=== PATIENT | female | born 1965 | race Caucasian/White ===

== ENCOUNTER 2020-03-31 15:53 | Outpatient (REF) | payer MEDICAID, SELFPAY ==
--- NOTE | 2020-03-31 | MM_ITS ---
EXAMINATION: MM SCREENING DIGITAL BREAST TOMOSYNTHESIS, BILATERAL CLINICAL INFORMATION: Screening. Asymptomatic. The lifetime risk of breast cancer based on the Tyrer-Cuzick Model is 9.0%. COMPARISON: Mammography: August 30, 2015 and studies dating back to January 24, 2010 TECHNIQUE: Digital mammography is performed in craniocaudal and mediolateral oblique views along with computer-aided detection (CAD). Digital breast tomosynthesis is performed in implant-displaced craniocaudal and implant-displaced mediolateral oblique views along with computer-aided detection (CAD). Synthesized 2D images are generated from the tomosynthesis. Hansel implant displaced views also performed. FINDINGS: The breasts are heterogeneously dense, which may obscure small masses (ACR BI-RADS breast composition Category c). There are no significant masses, abnormal calcifications, or other abnormalities. MM/MM tomosynthesis screen imp BI IMPRESSION: There are no significant changes from prior study. ASSESSMENT: BI-RADS 1: Negative RECOMMENDATION: Routine annual mammography screening. This patient's information was entered into a reminder system with a target due date for their next mammogram.
== END 2020-03-31 15:54 | disposition home or self-care (01) ==
LOC: HO.MAMMO 15:53
PROVIDERS: PCP Internal Medicine; Visit Provider Internal Medicine
DX: Z12.31 Encounter for screening mammogram for malignant neoplasm of breast (principal)
CPT/HCPCS: 77063; 77067

== ENCOUNTER 2020-04-02 17:37 | Emergency (ER) | payer MEDICAID, SELFPAY ==
[2020-04-02 18:54] VITALS: TEMP -12.2; TEMP 10
--- NOTE | 2020-04-02 19:01 | ED.HA ---
HPI - Headache General Chief Complaint: Headache Stated Complaint: MULTIPLE COMPLAINTS Time Seen by Provider: 04/02/20 18:37 Source: patient Mode of arrival: ambulatory Limitations: no limitations History of Present Illness HPI Narrative: 54 yo female previously healthy here with multiple complaints x 1 month. Generalized RAMSEY, left sided neck/shoulder/arm pain. No numbness/tingling/weakness. No nausea/vomiting/vision changes/dizziness MD elicited complaint: headache Onset (ago): month(s) Onset description: gradually Location: frontal Severity: mild Quality & Timing: dull Exacerbating factors: none Relieving factors: nothing Treatments prior to arrival: none Related Data Previous Rx's Medication Instructions Recorded cyclobenzaprine 10 mg PO TID PRN #10 tab 04/02/20 naproxen 375 mg PO BID PRN #10 tab 04/02/20 prednisone 40 mg PO DAILY #10 tab 04/02/20 Allergies Allergy/AdvReac Type Severity Reaction Status Date / Time acetaminophen [Percocet] Allergy Unknown Hives Verified 04/02/20 19:50 amoxicillin [AMOXICILLIN] Allergy Unknown SWELLING, Verified 04/02/20 19:50 hives aspirin [ASA] Allergy Unknown RASH, Verified 04/02/20 19:50 stomach pain codeine [CODEINE] Allergy Unknown HIVES;ITCHY, Verified 04/02/20 19:50 itching oxycodone [OXYCODONE] Allergy Unknown HIVES;ITCHY, Verified 04/02/20 19:50 itching penicillin V Allergy Unknown hives, rash Verified 04/02/20 19:50 Penicillins [PENICILLINS] Allergy Unknown SWELLING Verified 04/02/20 19:50 metronidazole AdvReac Unknown insomnia Verified 12/27/19 00:00 Review of Systems Review of Systems: Yes all other systems are reviewed and are negative Constitutional: Constitutional: Reports no additional constitutional complaints, Denies body ache(s), Denies chills, Denies fever(s), Reports headache(s) and Denies weakness Eyes: Eyes: Reports no additional eye complaints and Denies change in vision ENT: Reports system reviewed and no additional complaints, except as documented, Denies dizziness, Reports headache(s), Denies nasal congestion, Denies nasal discharge and Reports neck pain Cardiovascular: Cardiovascular: Reports no additional cardiovascular complaints, Denies chest pain, Denies leg edema and Denies dyspnea Respiratory: Respiratory: Reports no additional respiratory complaints, Denies cough and Denies dyspnea Gastrointestinal: Gastrointestinal: Reports no additional gastrointestinal complaints, Denies abdominal pain, Denies diarrhea, Denies nausea and Denies vomiting Genitourinary: Genitourinary: Reports no additional female genitourinary complaints and Denies urinary incontinence Musculoskeletal: Musculoskeletal: Reports no additional musculoskeletal complaints, Denies back pain, Denies arthralgias, Denies joint swelling, Reports neck pain, Denies numbness and Denies tingling Integumentary/Breasts: Skin/Breast: Reports system reviewed and no additional complaints, except as docu and Denies rash Neurologic: Denies Abnormal speech present, Denies dizziness, Reports headache(s), Denies numbness, Denies tingling and Denies weakness PMFSH Past Medical History Attestation statement: The following information was validated with the patient. Source: old records reviewed and nursing notes reviewed Social History Social History Smoked in Last 30 Days: No Use of substances other than those prescribed or required for medical reasons: No Advance Directives: No Advance Directives Information Provided: Yes Physical Exam Vital Signs: Vital Signs: Last Vital Signs Temp 98.0 F 04/02/20 19:29 Pulse 64 04/02/20 19:29 Resp 18 04/02/20 19:29 BP 136/92 H 04/02/20 19:29 Pulse Ox 98 04/02/20 19:29 Const: General: cooperative, healthy appearing, comfortable and no acute distress Orientation/consciousness: patient oriented x3 Limitations: no limitations HENMT: Head: Yes normal to inspection Ears: hearing grossly normal bilaterally General nose exam: Normal external nose present Face and sinus: Yes normal facial exam Mouth: Normal oral and palatal mucosa present Throat: Yes posterior oropharynx normal Eyes: General: appearance normal, both eyes and all related structures Pupils: Equal, round and reactive pupils present Neck: Neck: Yes normal visual inspection Chest: Chest palpation & inspection: normal inspection of the chest Resp: Effort & Inspection: normal respiratory effort Auscultation: clear to auscultation bilaterally Cardio: Rate: regular rate Rhythm: regular rhythm Peripheral pulses: Peripheral pulses 2+ throughout GI: Inspection: Yes normal to inspection Palpation (GI): Soft to palpation and nontender Auscultation: normal bowel sounds Back/Spine/Pelvis: Thoracic/Lumbar Spine: thoracic and lumbar spine normal to inspection Skin: General skin exam: no rashes or lesions noted Neuro: General: patient oriented x3, no focal motor deficits and normal sensation to monofilament Cranial nerves: Yes CN's II-XII intact bilaterally, Yes Equal, round and reactive pupils present, Yes Bilaterally intact EOM present, Yes Nystagmus not present, Yes Normal facial strength present and Yes Midline tongue present Cognition (Neuro): normal cognition Speech: No Abnormal speech present Gait exam (Neuro): Normal gait present Motor exam (neuro): 5/5 motor strength present throughout Sensory Exam: Normal double simultaneous stimulation for sensation Deep tendon reflexes (DTR's): Right patellar reflex intensity grade: 2+ and Left patellar reflex intensity grade: 2+ Coordination: [id number] test normal, [id number] test normal and tandem gait normal Extrem: General: Yes normal to inspection Course Course Course Narrative: Pt here with RAMSEY, neck lateral neck pain with radiation to the left arm x 1 month. No focal neurological deficits. Tenderness of trapezius with palpable muscle spasm. Likely tension migraine, MS pain with radiculopathy. WIll check CT head, EKG, labs. Give NS, toradol (listed allergy to aspirin but patient able to take aspirin and has taken several times in the last few days with no difficulty), muscle relaxant and re-asesss. 2120-Imaging, labs, EKG unremarkable. Patient is feeling improved. Reviewed follow-up with PCP, referral for PT, supportive care at home. Reviewed worrisome signs/symptoms with patient and when to return to ED. Comfortable with discharge home. MDM - Headache Medical Records Attestation: I reviewed the patient's medical records. Lab Data Attestation: I reviewed the patient's lab results. Result diagrams: 04/02/20 19:36 04/02/20 19:36 Labs: Lab Results 04/02/20 04/02/20 Range/Units 19:36 19:36 WBC 6.0 (4.8-10.8) X10*3/uL RBC 4.49 (4.20-5.50) X10*6/uL Hgb 12.6 (12.0-16.0) g/dl Hct 37.6 (37-47) % MCV 83.7 (80-98) fL MCH 28.1 (27.0-33.0) pg MCHC 33.5 (31.0-35.0) g/dl RDW 13.0 (11.0-16.0) % Plt Count 216 (160-400) X10*3/uL MPV 10.4 (9.4-12.3) fL Immature Gran % (Auto) 0.2 (0.0-0.4) % Neut % (Auto) 62.9 (45-73) % Lymph % (Auto) 25.5 (20-40) % [place] % (Auto) 8.9 (2-11) % Eos % (Auto) 2.3 (0-4) % Baso % (Auto) 0.2 (0-2) % Lymph # (Auto) 1.5 (1.2-4.9) X10*3/uL [place] # (Auto) 0.5 (0.1-1.2) X10*3/uL Eos # (Auto) 0.1 (0.0-0.4) X10*3/uL Baso # (Auto) 0.0 (0.0-0.2) X10*3/uL Abs Immat Gran (auto) 0.01 (0.00-0.03) X10*3/uL Absolute Neuts (auto) 3.8 (2.0-8.3) X10*3/uL Absolute Nucleated RBC 0.000 (0.0-0.012) X10*3/uL Nucleated RBC % (auto) 0.0 (0.0-0.2) /100WBC Sodium 140 (135-145) mmol/L Potassium 4.6 (3.3-5.1) mmol/l Chloride 105 (96-108) mmol/L Carbon Dioxide 26 (22-29) mmol/L Anion Gap 14 (12-20) BUN 21 H (9-16) mg/dL Creatinine 0.91 (0.5-1.4) mg/dL Estim Creat Clear Calc TNP Estimated GFR > 60 Random Glucose 91 (60-115) mg/dL Calcium 9.3 (8.4-10.2) mg/dL Magnesium 2.1 (1.6-2.6) mg/dL Total Bilirubin 0.2 (0.0-1.0) mg/dL Direct Bilirubin < 0.2 (0.0-0.5) mg/dL AST 24 (5-31) U/L ALT 18 (0-31) U/L Alkaline Phosphatase 88 (39-117) U/L Total Protein 7.4 (6.5-8.0) g/dL Albumin 4.2 (3.5-5.0) g/dL Imaging Data CT scan - head: Attestation: I personally reviewed and interpreted this imaging study as follows: Radiologist's impression: EXAMINATION: CT HEAD WITHOUT CONTRAST CLINICAL INFORMATION: Numbness. Pain. Headache. COMPARISON: None available. TECHNIQUE: Contiguous axial imaging was performed from the skull base to vertex without intravenous administration of contrast. DLP: 583 mGy-cm FINDINGS: There is no evidence of acute intracranial hemorrhage or edematous territorial infarction. There is no abnormal attenuation within the brain parenchyma. Silva-white matter differentiation is preserved. The ventricles are normal in size and configuration. No evidence for obstructive hydrocephalus. No abnormal mass effect or midline shift. No extra-axial fluid collections. No acute soft tissue or osseous abnormalities. Mild mucosal thickening of the paranasal sinuses. The mastoid air cells and middle ear cavities are clear. CT/CT head/brain wo con IMPRESSION: No evidence of acute intracranial hemorrhage or edematous territorial infarction. ECG Data Attestation: I personally reviewed and interpreted this ECG as follows: ECG interpretation date: 04/02/20 ECG interpretation time: 19:34 Interpretation: NSR with rate 78, normal pr, normal qrs, normal st segment Discharge Plan Discharge Clinical Impression: Tension headache, Trapezius muscle spasm Patient Disposition: Home, Self-Care Instructions: Acute Headache (ED) Additional Instructions: Call your doctor for a referral for a headache physical therapist ([facility]) Heat to the area Gentle stretching Prescriptions: New prednisone 20 mg tablet 40 mg PO DAILY Qty: 10 RF: 0 cyclobenzaprine 10 mg tablet 10 mg PO TID PRN (Reason: muscle spasm) Qty: 10 RF: 0 naproxen 375 mg tablet 375 mg PO BID PRN (Reason: pain) Qty: 10 RF: 0 Referrals: Barry Vivas MD [Primary Care Provider] - 2 days Stand Alone Forms: Work/School Release
--- NOTE | 2020-04-02 19:13 | ECG_ITS ---
Test Reason : LT ARM PAIN Blood Pressure : / mmHG Vent. Rate : 078 BPM Atrial Rate : 078 BPM P-R Int : 136 ms QRS Dur : 076 ms QT Int : 378 ms P-R-T Axes : 065 028 049 degrees QTc Int : 430 ms Normal sinus rhythm Normal ECG No previous ECGs available Referred By: Elena Lugo Electronically Signed By:SUSAN YOUNG
--- NOTE | 2020-04-02 19:13 | CT_ITS ---
EXAMINATION: CT HEAD WITHOUT CONTRAST CLINICAL INFORMATION: Numbness. Pain. Headache. COMPARISON: None available. TECHNIQUE: Contiguous axial imaging was performed from the skull base to vertex without intravenous administration of contrast. DLP: 583 mGy-cm FINDINGS: There is no evidence of acute intracranial hemorrhage or edematous territorial infarction. There is no abnormal attenuation within the brain parenchyma. Silva-white matter differentiation is preserved. The ventricles are normal in size and configuration. No evidence for obstructive hydrocephalus. No abnormal mass effect or midline shift. No extra-axial fluid collections. No acute soft tissue or osseous abnormalities. Mild mucosal thickening of the paranasal sinuses. The mastoid air cells and middle ear cavities are clear. CT/CT head/brain wo con IMPRESSION: No evidence of acute intracranial hemorrhage or edematous territorial infarction.
[2020-04-02 19:29] VITALS: BP 136/92; PULSE 64; RESP 18; TEMP 36.7; O2SAT 98
[2020-04-02 19:49] LABS: Basophils Percent Auto 0.2 % (0-2); Eosinophils Absolute Auto 0.1 X10*3/uL (0.0-0.4); Eosinophils Percent Auto 2.3 % (0-4); Hematocrit 37.6 % (37-47); Hemoglobin 12.6 g/dl (12.0-16.0); Imm Gran Abs Auto 0.01 X10*3/uL (0.00-0.03); Imm Gran Pct Auto 0.2 % (0.0-0.4); Lymphocytes Absolute Auto 1.5 X10*3/uL (1.2-4.9); Lymphocytes Percent Auto 25.5 % (20-40); MANUAL DIFF FLAG NO; Mean Corpuscular HGB Conc 33.5 g/dl (31.0-35.0); Mean Corpuscular Hemoglobin 28.1 pg (27.0-33.0); Mean Corpuscular Volume 83.7 fL (80-98); Mean Platelet Volume 10.4 fL (9.4-12.3); Monocytes Absolute Auto 0.5 X10*3/uL (0.1-1.2); Monocytes Percent Auto 8.9 % (2-11); Neutrophils Absolute Auto 3.8 X10*3/uL (2.0-8.3); Neutrophils Percent Auto 62.9 % (45-73); Platelet Count 216 X10*3/uL (160-400); Red Blood Count 4.49 X10*6/uL (4.20-5.50)
[2020-04-02] MEDS: Ketorolac Tromethamine 30 MG/ML VIAL IVPUSH (19:51)
[2020-04-02] MEDS: Cyclobenzaprine HCl 10 MG TABLET PO (19:51)
[2020-04-02 20:18] LABS: Alanine Aminotransferase 18 U/L (0-31); Albumin Level 4.2 g/dL (3.5-5.0); Alkaline Phosphatase 88 U/L (39-117); Anion Gap 14 (12-20); Aspartate Amino Transferase 24 U/L (5-31); Bilirubin Direct < 0.2 mg/dL (0.0-0.5); Bilirubin Total 0.2 mg/dL (0.0-1.0); Blood Urea Nitrogen 21 mg/dL (9-16); Calcium 9.3 mg/dL (8.4-10.2); Carbon Dioxide 26 mmol/L (22-29); Chloride 105 mmol/L (96-108); Estimated Glomerular Filt Rate > 60; Glucose Random 91 mg/dL (60-115); Magnesium 2.1 mg/dL (1.6-2.6); Potassium 4.6 mmol/l (3.3-5.1); Sodium 140 mmol/L (135-145); Total Protein 7.4 g/dL (6.5-8.0)
== END 2020-04-02 21:44 | disposition home or self-care (01) ==
PROVIDERS: Nurse Practitioner Family; Emergency Provider Emergency Medicine; PCP Internal Medicine
DX: G44.89 Other headache syndrome (principal); M54.2 Cervicalgia; M62.838 Other muscle spasm; Z79.899 Other long term (current) drug therapy
CPT/HCPCS: 36415; 70450; 80048; 80076; 83735; 85025; 93005; 99284; J1885

== ENCOUNTER 2020-05-23 15:15 | Outpatient (REF) | payer MEDICAID, SELFPAY ==
--- NOTE | 2020-05-23 16:14 | XR_ITS ---
EXAMINATION: BILATERAL KNEE X-RAY CLINICAL INFORMATION: Pain COMPARISON: Right knee x-ray April 2019 TECHNIQUE: 4 views each knee FINDINGS: Right: Bone alignment is normal. No fracture or dislocation is seen. There are small osteophytes at the patellofemoral joint. There is a small osteophyte at the quadriceps tendon insertion to the patella. There is no joint effusion. Left: Bone alignment is normal. No fracture or dislocation is seen. There are small osteophytes at the femoral tibial and patellofemoral joints. There is an osteophyte at the quadriceps tendon insertion. There is no joint effusion. XR/XR knee RT 3V IMPRESSION: Mild degenerative changes, left greater than right. EXAMINATION: Cervical spine x-ray CLINICAL INFORMATION: Pain COMPARISON: None. TECHNIQUE: 3 views of the cervical spine FINDINGS: Bone alignment is normal. No fracture or dislocation is seen. There is degenerative spondylosis and degenerative disc disease at C3-C4. There is mild degenerative spondylosis at C6-C7. Disc spaces are normal. Prevertebral soft tissues are normal. IMPRESSION: Mild degenerative changes.
--- NOTE | 2020-05-23 16:14 | XR_ITS ---
EXAMINATION: BILATERAL KNEE X-RAY CLINICAL INFORMATION: Pain COMPARISON: Right knee x-ray April 2019 TECHNIQUE: 4 views each knee FINDINGS: Right: Bone alignment is normal. No fracture or dislocation is seen. There are small osteophytes at the patellofemoral joint. There is a small osteophyte at the quadriceps tendon insertion to the patella. There is no joint effusion. Left: Bone alignment is normal. No fracture or dislocation is seen. There are small osteophytes at the femoral tibial and patellofemoral joints. There is an osteophyte at the quadriceps tendon insertion. There is no joint effusion. XR/XR cervical spine 2V IMPRESSION: Mild degenerative changes, left greater than right. EXAMINATION: Cervical spine x-ray CLINICAL INFORMATION: Pain COMPARISON: None. TECHNIQUE: 3 views of the cervical spine FINDINGS: Bone alignment is normal. No fracture or dislocation is seen. There is degenerative spondylosis and degenerative disc disease at C3-C4. There is mild degenerative spondylosis at C6-C7. Disc spaces are normal. Prevertebral soft tissues are normal. IMPRESSION: Mild degenerative changes.
--- NOTE | 2020-05-23 16:14 | XR_ITS ---
EXAMINATION: BILATERAL KNEE X-RAY CLINICAL INFORMATION: Pain COMPARISON: Right knee x-ray April 2019 TECHNIQUE: 4 views each knee FINDINGS: Right: Bone alignment is normal. No fracture or dislocation is seen. There are small osteophytes at the patellofemoral joint. There is a small osteophyte at the quadriceps tendon insertion to the patella. There is no joint effusion. Left: Bone alignment is normal. No fracture or dislocation is seen. There are small osteophytes at the femoral tibial and patellofemoral joints. There is an osteophyte at the quadriceps tendon insertion. There is no joint effusion. XR/XR knee LT 3V IMPRESSION: Mild degenerative changes, left greater than right. EXAMINATION: Cervical spine x-ray CLINICAL INFORMATION: Pain COMPARISON: None. TECHNIQUE: 3 views of the cervical spine FINDINGS: Bone alignment is normal. No fracture or dislocation is seen. There is degenerative spondylosis and degenerative disc disease at C3-C4. There is mild degenerative spondylosis at C6-C7. Disc spaces are normal. Prevertebral soft tissues are normal. IMPRESSION: Mild degenerative changes.
[2020-05-23 16:40] LABS: MANUAL DIFF FLAG NO
[2020-05-23 16:55] LABS: Basophils Percent Auto 0.2 % (0-2); Eosinophils Absolute Auto 0.1 X10*3/uL (0.0-0.4); Eosinophils Percent Auto 1.9 % (0-4); Hematocrit 39.6 % (37-47); Hemoglobin 12.9 g/dl (12.0-16.0); Imm Gran Abs Auto 0.02 X10*3/uL (0.00-0.03); Imm Gran Pct Auto 0.3 % (0.0-0.4); Lymphocytes Absolute Auto 1.3 X10*3/uL (1.2-4.9); Mean Corpuscular HGB Conc 32.6 g/dl (31.0-35.0); Mean Corpuscular Hemoglobin 27.6 pg (27.0-33.0); Mean Corpuscular Volume 84.6 fL (80-98); Mean Platelet Volume 10.7 fL (9.4-12.3); Monocytes Absolute Auto 0.6 X10*3/uL (0.1-1.2); Monocytes Percent Auto 9.3 % (2-11); Neutrophils Absolute Auto 4.4 X10*3/uL (2.0-8.3); Neutrophils Percent Auto 68.3 % (45-73); Platelet Count 214 X10*3/uL (160-400); Red Blood Count 4.68 X10*6/uL (4.20-5.50); Red Cell Distribution Width 12.5 % (11.0-16.0); White Blood Count 6.4 X10*3/uL (4.8-10.8)
[2020-05-23 17:15] LABS: Alanine Aminotransferase 16 U/L (0-31); Albumin Level 4.3 g/dL (3.5-5.0); Alkaline Phosphatase 85 U/L (39-117); Anion Gap 13 (12-20); Aspartate Amino Transferase 19 U/L (5-31); Bilirubin Total 0.3 mg/dL (0.0-1.0); Blood Urea Nitrogen 21 mg/dL (9-16); C Reactive Protein 0.38 mg/dL (< or = 0.50); Calcium 9.6 mg/dL (8.4-10.2); Carbon Dioxide 28 mmol/L (22-29); Chloride 103 mmol/L (96-108); Estimated Glomerular Filt Rate 46; Glucose Random 84 mg/dL (60-115); Potassium 4.3 mmol/l (3.3-5.1); Sodium 140 mmol/L (135-145); Total Protein 7.6 g/dL (6.5-8.0)
[2020-05-23 17:25] LABS: Rheumatoid Factor < 15.0 IU/mL (<15.0)
[2020-05-23 17:30] LABS: Thyroid Stimulating Hormone 2.62 uIU/mL (0.32-4.0)
[2020-05-23 17:50] LABS: Erythrocyte Sedimentation Rate 13 MM/HR (0-20)
[2020-05-24 13:32] LABS: Antibody to SS-A Antigen <1.0 NEG AI (<1.0 NEG); Antibody to SS-B Antigen <1.0 NEG AI (<1.0 NEG); IgA 182 mg/dL (47-310); IgG 1625 mg/dL (600-1640); IgM 94 mg/dL (50-300); Prot Elec - Albumin 4.3 g/dL (3.8-4.8); Prot Elec - Alpha1 0.3 g/dL (0.2-0.3); Prot Elec - Alpha2 0.7 g/dL (0.5-0.9); Prot Elec - Beta 1 0.4 g/dL (0.4-0.6); Prot Elec - Beta 2 0.4 g/dL (0.2-0.5); Prot Elec - Gamma 1.5 g/dL (0.8-1.7); Prot Elec - Total Protein 7.5 g/dL (6.1-8.1)
[2020-05-24 15:07] LABS: Cyclic Citrullinated Peptide <16 UNITS
[2020-05-25 19:32] LABS: Vitamin D 25-OH, D2 <4 ng/mL; Vitamin D 25-OH, D3 22 ng/mL; Vitamin D 25-OH, Total 22 ng/mL (30-100)
== END 2020-05-23 15:16 | disposition home or self-care (01) ==
LOC: HO.LAB 15:15
PROVIDERS: PCP Internal Medicine; Referring Provider Internal Medicine; Visit Provider Student in an Organized Health Care Education/Training Program
DX: M25.50 Pain in unspecified joint (principal); Z79.899 Other long term (current) drug therapy
CPT/HCPCS: 36415; 72040; 73562; 80053; 82306; 82784; 84155; 84165; 84443; 85025; 85652; 86038; 86039; 86140; 86200; 86235; 86334; 86431; 99202

== ENCOUNTER 2020-06-16 11:40 | Outpatient (REF) | payer MEDICAID, SELFPAY ==
[2020-06-16 13:37] LABS: Glucose Urine UA NEG (NEG); Leukocyte Esterase Urine NEG (NEG); Nitrite Urine NEG (NEG); Specific Gravity - Urine 1.015 (1.005-1.025); Urine Blood NEG (NEG); Urine Ketones NEG (NEG); Urine Protein NEG (NEG-TRACE)
[2020-06-16 13:39] LABS: Appearance Urine CLEAR; Color Urine YELLOW
[2020-06-16 14:04] LABS: WBC Urine 0-2 /HPF (0-4)
[2020-06-16 14:05] LABS: RBC Urine 0-2 /HPF (0); Squamous Epithelial Cell Urine 1+ /LPF
[2020-06-17 09:57] LABS: Thyroglobulin Antibodies 1 IU/mL (< or = 1); Thyroid Peroxidase Antibodies 2 IU/mL (<9)
[2020-06-17 11:51] LABS: Anti DNA DS Antibody <1 IU/mL; SM/Ribonucleoprotein Ab <1.0 NEG AI (<1.0 NEG); Scleroderma 70 Antibody <1.0 NEG AI (<1.0 NEG); Smith Protein <1.0 NEG AI (<1.0 NEG)
[2020-06-17 13:51] LABS: Beta-2 Microglobulin, Serum 2.19 mg/L (< OR = 2.51)
[2020-06-17 23:16] LABS: Cardiolipin IgG Ab <14 GPL; Cardiolipin IgM Ab 13 MPL
[2020-06-19 13:51] LABS: PTT (LAC) Screen 29 sec (< OR = 40)
[2020-06-19 18:11] LABS: Complement C3 134 mg/dL (83-193)
== END 2020-06-16 11:41 | disposition home or self-care (01) ==
LOC: HO.LAB 11:40
PROVIDERS: PCP Internal Medicine; Visit Provider Student in an Organized Health Care Education/Training Program
DX: R76.8 Other specified abnormal immunological findings in serum (principal); M25.50 Pain in unspecified joint
CPT/HCPCS: 36415; 81001; 82232; 85597; 85613; 85730; 86147; 86160; 86225; 86235; 86376; 86800; 99212

== ENCOUNTER → 2020-07-05 15:39 | Outpatient (BNVA) | payer MEDICAID, SELFPAY | PROVIDERS: PCP Nurse Practitioner Family; Visit Provider Nurse Practitioner Family ==

== ENCOUNTER → 2020-08-10 11:31 | Outpatient (BNVA) | payer MEDICAID, SELFPAY | PROVIDERS: PCP Internal Medicine; Visit Provider Student in an Organized Health Care Education/Training Program ==

== ENCOUNTER 2020-08-15 08:53 | Day surgery (SDC) | payer MEDICAID, SELFPAY ==
[2020-08-08 13:50] VITALS: BMI 35.7
--- NOTE | 2020-08-10 14:48 | HO.ANESPROP2 ---
Documented by User: Lindsey Lorenzo 08/10/20 14:50 HPI - Anesthesia Eval Consult details Narrative: 54yo F for Colonoscopy PMFSH Active Problems Active Problems: All Active Problems (Updated 08/10/20 @ 11:37 by Tc Rebolledo MD) Anti-cardiolipin antibody positive (Acute) Polyarthralgia (Acute) JOSEPH positive (Acute) Past Medical History Medical History JOSEPH positive Anti-cardiolipin antibody positive Asthma Brachial plexus injury Depression Eczema GERD (gastroesophageal reflux disease) IBS (irritable bowel syndrome) Polyarthralgia Family History Family History Mother Diabetes Rheumatoid arthritis Surgical History Surgical History H/O abdominoplasty H/O breast augmentation History of partial hysterectomy Hx of section Social History Social History Household Members: Children Alcohol intake: current Alcohol intake frequency: does not drink Alcohol type: wine Smoking Status: Never smoker Advance Directives Information Provided: No Meds Allergies Allergy/AdvReac Type Severity Reaction Status Date / Time amoxicillin [AMOXICILLIN] Allergy Intermediate SWELLING, Verified 08/10/20 11:34 hives codeine [CODEINE] Allergy Intermediate HIVES;ITCHY, Verified 08/10/20 11:34 itching oxycodone [OXYCODONE] Allergy Intermediate HIVES;ITCHY, Verified 08/10/20 11:34 itching Penicillins [PENICILLINS] Allergy Intermediate SWELLING Verified 08/10/20 11:34 aspirin [ASA] Allergy Mild RASH, Verified 08/10/20 11:34 stomach pain metronidazole AdvReac Intermediate insomnia Verified 08/10/20 11:34 Home Medications Medication Instructions Recorded Confirmed Last Taken Type albuterol sulfate 90 mcg/actuation 2 puff INHALATION Q6H PRN 05/23/20 08/08/20 Unknown History aerosol inhaler bupropion HCl 300 mg 24 hr tablet, 300 mg PO QAM 05/23/20 08/08/20 Unknown History extended release fluticasone propionate 50 1 spray INTRANASAL DAILY 05/23/20 08/08/20 Unknown History mcg/actuation nasal spray,suspension lorazepam 0.5 mg tablet 0.5 mg PO BEDTIME PRN 05/23/20 08/08/20 Unknown History ranitidine HCl 150 mg tablet 150 mg PO DAILY tab 05/23/20 08/08/20 Unknown History Exam Exam Date and Time: August 10, 2020 144 Height,Weight and Vital Signs: Height 5 ft 2 in Weight 88.7 kg Narrative Narrative: EKG 03/2020 Vent. Rate : 078 BPM Atrial Rate : 078 BPM P-R Int : 136 ms QRS Dur : 076 ms QT Int : 378 ms P-R-T Axes : 065 028 049 degrees QTc Int : 430 ms Normal sinus rhythm Normal ECG No previous ECGs available Assessment and Plan Assessment Anesthesia Assessment: Chart Reviewed Documented by User: Yesi Escalante 08/15/20 10:13 COUNTS INCLUDE 234 BEDS AT [facility] Past Medical History Medical History JOSEPH positive Anti-cardiolipin antibody positive Asthma Brachial plexus injury Depression Eczema GERD (gastroesophageal reflux disease) IBS (irritable bowel syndrome) Polyarthralgia Family History Family History Mother Diabetes Rheumatoid arthritis Surgical History Surgical History H/O abdominoplasty H/O breast augmentation History of partial hysterectomy Hx of section Social History Social History Household Members: Children Alcohol intake: current Alcohol intake frequency: does not drink Alcohol type: wine Smoking Status: Never smoker Advance Directives Information Provided: No Meds Allergies Allergy/AdvReac Type Severity Reaction Status Date / Time amoxicillin [AMOXICILLIN] Allergy Intermediate SWELLING, Verified 08/10/20 11:34 hives codeine [CODEINE] Allergy Intermediate HIVES;ITCHY, Verified 08/10/20 11:34 itching oxycodone [OXYCODONE] Allergy Intermediate HIVES;ITCHY, Verified 08/10/20 11:34 itching Penicillins [PENICILLINS] Allergy Intermediate SWELLING Verified 08/10/20 11:34 aspirin [ASA] Allergy Mild RASH, Verified 08/10/20 11:34 stomach pain metronidazole AdvReac Intermediate insomnia Verified 08/10/20 11:34 Home Medications Medication Instructions Recorded Confirmed Last Taken Type albuterol sulfate 90 mcg/actuation 2 puff INHALATION Q6H PRN 05/23/20 08/08/20 Unknown History aerosol inhaler bupropion HCl 300 mg 24 hr tablet, 300 mg PO QAM 05/23/20 08/08/20 Unknown History extended release fluticasone propionate 50 1 spray INTRANASAL DAILY 05/23/20 08/08/20 Unknown History mcg/actuation nasal spray,suspension lorazepam 0.5 mg tablet 0.5 mg PO BEDTIME PRN 05/23/20 08/08/20 Unknown History ranitidine HCl 150 mg tablet 150 mg PO DAILY tab 05/23/20 08/08/20 Unknown History Exam Airway Mallampati Class: II TM Dist: >3cm Neck ROM: Full Heart: RRR Lungs: CTA Assessment and Plan Assessment Anesthesia Assessment: Anesthesia Plan Discussed and Chart Reviewed Final Anesthetic Review NPO: Yes ASA Class: II Final Preanesthetic Review: Meds/Allgs Chart Reviewed, Consent Obtained/Reviewed and Anes Risks/Benef Reviewed Patient Risk: Low Procedure Risk: Low Anesthetic Plan Anesthetic Plan: MAC: Disposition: Standard PACU
[2020-08-15 09:32] VITALS: BP 145/77; PULSE 62; RESP 16; TEMP 36.5; O2SAT 98
[2020-08-15] MEDS: Lactated Ringers 1,000 ML 100 ML IVCONT (09:47)
--- NOTE | 2020-08-15 10:21 | MHC.SHP ---
Pre-Procedural Eval Section B Chief Complaint: Screening Details of Present Illness: Colon cancer screening Relevant Family History (Specify if Yes): No Relevant Social History: None Present Medications: see Short Stay Collaborative assessment Medical History: Significant History (Asthma, GERD, IBS; ??? hx of colon inflamatory disease resolved) History of Previous Operations: Relevant previous surgery/procedure and date(s) (Hysterectomy-fibroid; abdominalplasty.) Allergies: Allergies Allergy/AdvReac Type Severity Reaction Status Date / Time amoxicillin [AMOXICILLIN] Allergy Intermediate SWELLING, Verified 08/10/20 11:34 hives codeine [CODEINE] Allergy Intermediate HIVES;ITCHY, Verified 08/10/20 11:34 itching oxycodone [OXYCODONE] Allergy Intermediate HIVES;ITCHY, Verified 08/10/20 11:34 itching Penicillins [PENICILLINS] Allergy Intermediate SWELLING Verified 08/10/20 11:34 aspirin [ASA] Allergy Mild RASH, Verified 08/10/20 11:34 stomach pain metronidazole AdvReac Intermediate insomnia Verified 08/10/20 11:34 Review of Systems Sugical H&P ROS: Negative: Constitution, Cardiovascular, Gastrointestinal and Musculoskeletal and Yes, Specify: Respiratory (asthma) Exam Surgical H&P Exam: Normal: HEENT, Normal: Heart, Normal: Lungs, Normal: Extremities, Normal: Abdomen and Normal: Skin Plan Diagnosis/Plan: Unchanged I have reviewed the history and physical and performed a pertinent physical examination on my patient. No changes have occurred unless specified.yes
--- NOTE | 2020-08-15 10:56 | PM.OP ---
Brief Operative Note Date of Service: 08/15/20 Pre-op diagnosis: Colon cancer screening, Prev hx of inflamation of the bowel. Post-op diagnosis: other (Normal colon, 1+ Internal Hemorrhoids.) Procedure: Colonoscopy with bx Implants: NONE Surgeon: Radha Wright MD Anesthesia: MAC (Md Boris) Estimated blood loss (mL): 5 Pathology: other (Right colon, left colon ) Condition: stable Disposition: PACU
[2020-08-15 10:57] VITALS: BP 98/52; PULSE 71; RESP 16; TEMP 36.3; O2SAT 99
[2020-08-15 11:12] VITALS: BP 117/71; PULSE 60; RESP 16; O2SAT 99
[2020-08-15 11:24] VITALS: BP 125/85; PULSE 65; RESP 16; TEMP 36.3; O2SAT 99
--- NOTE | 2020-08-15 12:03 | W.PM.OPN ---
Operative Note Operative Note Date of Service: 08/15/20 Narrative: Pre-op diagnosis: Colon cancer screening, Prev hx of inflamation of the bowel. Post-op diagnosis: Normal colon, 1+ Internal Hemorrhoids. Procedure: Colonoscopy with bx Implants: NONE Surgeon: Radha Wright MD Anesthesia: MAC : MD Boris FINDINGS: MARIE: Normal sphincter tone Adult slim colonoscope introduced without difficulty navigated from rectum to ascending colon with no difficulty.Ascending colon slight tortuous, but able to enter the cecum. Appendiceal orifice not well seen, ileocecal valve was seen. PREP: Good. Slow withdrawal of scope, good rotational views. No mucosal lesions identified. ARV was clear. 1-2+ Internal hemorrholds were seen. Estimated blood loss (mL): 5 Pathology: Right colon, left colon RANDOM BX DONE DUE TO ? HX OF INFLAMATORY MARILEE. IN THE PAST. Condition: stable Disposition: PACU PLAN: Repeat colon cancer screening in 10 years; Consider FIT testing in 5 and 7 years. She is to start the Citucel now to see if this lessens diarrheal episodes--return visit would be recommended in 4-6 weeks.
== END 2020-08-15 11:50 | disposition home or self-care (01) ==
PROVIDERS: PCP Internal Medicine; Visit Provider Internal Medicine Gastroenterology
PROC: 0DJD8ZZ Inspection of Lower Intestinal Tract, Via Natural or Artificial Opening Endoscopic (ICD-10-PCS; CPT 45378; principal; 2020-08-15 10:10)
DX: Z12.11 Encounter for screening for malignant neoplasm of colon (principal); Z87.19 Personal history of other diseases of the digestive system; K64.8 Other hemorrhoids; R76.0 Raised antibody titer; K21.9 Gastro-esophageal reflux disease without esophagitis; J45.909 Unspecified asthma, uncomplicated; Z79.899 Other long term (current) drug therapy; Z79.51 Long term (current) use of inhaled steroids; Z88.0 Allergy status to penicillin; Z88.8 Allergy status to other drugs, medicaments and biological substances
CPT/HCPCS: 45380; 88305

== ENCOUNTER → 2020-09-12 14:58 | Outpatient (BNVA) | payer MEDICAID, SELFPAY | PROVIDERS: Visit Provider Nurse Practitioner Family ==

== ENCOUNTER 2021-01-24 07:13 | Outpatient (REF) | payer MEDICAID, SELFPAY ==
[2021-01-24 08:12] LABS: Estimated Average Glucose 100 mg/dL; Hemoglobin A1C 105.8042 umol/L; Hemoglobin A1c % 5.1 %
[2021-01-24 08:23] LABS: Cholesterol 175 mg/dL; HDL Cholesterol 63 mg/dL; LDL Cholesterol Calculated 101 mg/dl; Triglycerides 56 mg/dL
[2021-01-24 08:48] LABS: TSH reflex Free T4 3.67 uIU/mL (0.32-4.0); Vitamin D 25-OH Total 34.1 ng/mL (>30)
[2021-01-24 09:16] LABS: Creatinine Urine 75.75 mg/dL; Microalbumin Urine < 5.0 mg/L
[2021-01-24 09:27] LABS: Syphilis Screen Nonreactive (Nonreactive)
[2021-01-24 13:06] LABS: CT PCR NOT DETECTED (Not Detect.); NG PCR NOT DETECTED (Not Detect.)
== END 2021-01-24 07:14 | disposition home or self-care (01) ==
LOC: HO.LAB 07:13
PROVIDERS: PCP Internal Medicine; Visit Provider Internal Medicine
DX: E03.9 Hypothyroidism, unspecified (principal); I10 Essential (primary) hypertension; Z11.3 Encounter for screening for infections with a predominantly sexual mode of transmission
CPT/HCPCS: 80061; 82043; 82306; 83036; 84443; 86780; 87491; 87591

== ENCOUNTER → 2021-02-09 08:27 | Outpatient (REF) | payer MEDICAID, SELFPAY ==
--- NOTE | 2021-02-09 08:30 | CA_ITS ---
Transthoracic Echocardiogram Patient (Last, First, Middle): Иван Mondragon, Gender: Female Date of : 1965 Age: 55 Procedure Date: 02/09/2021 Procedure Type: Transthoracic Echocardiogram Location: OP Height: 154.94 cm Weight: 86.18 kg BSA: 1.85 m2 Heart Rate: bpm BP: 130 / 80 mmHg Lithographing Machine Operator: HALLE Lord MD: Barry Vivas MD Latex Spooler: Jamil Dominguez MD Symptoms: SOLANO AFTER COVID VACINE R06.00 Study Quality: Good ECG Rhythm: Sinus Conclusions: - 1. Normal LV systolic function with grade 1 diastolic dysfunction 2. Normal cardiac valvular Doppler 3. Normal RV systolic pressure 4. No gross pericardial effusion Findings Left Ventricle Normal left ventricular size, thickness, and systolic function. The visually estimated ejection fraction is between 60-65%. Spectral Doppler is indicative of an impaired relaxation filling pattern. E/E prime ratio is <8, consistent with normal filling pressures. Right Ventricle Normal right ventricular cavity size and systolic function. Atria The left atrium is normal in size. There is no evidence of interatrial shunt. The right atrium is normal in size. Aortic Valve Normal aortic valve structure and function. There is no aortic valve stenosis. There is no aortic valve regurgitation. Mitral Valve Normal mitral valve structure and function. There is trace mitral valve regurgitation. There is no mitral valve stenosis. Pulmonic Valve The pulmonic valve was not well visualized. Tricuspid Valve Likely normal tricuspid valve structure and function. There is mild tricuspid valve regurgitation. The right ventricular systolic pressure is normal. The right ventricular systolic pressure is 27 mmHg. There is no evidence of pulmonary hypertension. Great Vessels All visible segments of the aorta are normal in size. The pulmonary artery was not well visualized. Venous The inferior vena cava is normal in size and collapses greater than 50% with inspiration. Pericardium/Pleural There is no evidence of pericardial effusion. Prior Study Comparison No prior study available for comparison. Measurements 2D Linear Measurements IVSd: 0.85 0.6-0.9/0.6-1.0 cm LVIDd: 4.86 3.9-5.3/4.2-5.9 cm LVIDd Index: 2.63 2.4-3.2/2.2-3.1 cm/m2 LVIDs: 3.19 2.0-3.6 cm LVPWd: 0.92 0.7-1.1 cm Ao Root: 3.20 2.1-3.5 cm LA Diam: 3.60 2.7-3.8/3.0-4.0 cm LAIDs Index: 1.95 1.5-2.3 cm/m2 LV Mass: 184.53 67-162/88-224 g LV Mass Index: 99.75 43-95/49-115 g/m2 LVOT Diam: 2.00 3.0+(-)1.3 cm 2D Systolic Function EF 4C: 58.40 >55% EF 2C: 64.80 >55% EF BiP: 63.20 >55% Mitral Valve MV Pk E: 0.54 MV PK A: 0.65 MV Decel Time: 279.00 E/A: 0.80 E'Lateral: 6.85 E'Medial: 6.74 E/E' Med: 8.10 E/E' Lat: 7.90 PHT: 82.00 MVA PHT: 2.68 Decel [place]: 1.95 Aortic Valve AoV Pk Jai: 1.05 AoV Mn Jai: 0.82 AoV VTI: 0.24 AoV Pk Grad: 4.00 Aov Mn Grad: 3.00 ALEXEI Cont.VTI: 2.48 LVOT LVOT Pk Jai: 0.86 LVOT Mn Jai: 0.57 LVOT VTI: 0.19 LVOT Pk Grad: 3.00 LVOT Mn Grad: 1.00 LVOT Diam: 2.00 LVOT Area: 3.14 Diastolic Function MV Pk E: 0.54 MV Pk A: 0.65 E/A: 0.80 E'Medial: 6.74 E/E' Med: 8.10 E' Laterial: 6.85 E/E' Lat: 7.90 Right Ventricle TAPSE (mm): 2.72 TVS' Jai: 12.30 Tricuspid Valve TR Pk Jai: 2.16 TR Pk Grad: 19.00 RA Press: 8.00 RVSP: 27.00 Great Vessels Aorta Ao Root-2D: 3.20 2.0-3.7 cm Ao Asc: 2.80 2.1-3.4 cm Ao Arch: 2.90 Updated in Other Vendor System with Status of Final Jamil Dominguez MD electronically signed on 02/10/2021 2:34:28 PM with status of Final
== END ==
LOC: HO.CARD 08:27
PROVIDERS: Visit Provider Internal Medicine
DX: R06.00 Dyspnea, unspecified (principal)
CPT/HCPCS: 93306

== ENCOUNTER → 2021-03-27 11:30 | Outpatient (BNVA) | payer MEDICAID, SELFPAY | PROVIDERS: PCP Internal Medicine; Referring Provider Internal Medicine; Visit Provider Nurse Practitioner Family | DX: G47.10 Hypersomnia, unspecified (principal); R06.83 Snoring; Z88.6 Allergy status to analgesic agent; Z88.1 Allergy status to other antibiotic agents; Z88.3 Allergy status to other anti-infective agents; Z88.5 Allergy status to narcotic agent; Z88.0 Allergy status to penicillin; Z79.899 Other long term (current) drug therapy | CPT/HCPCS: 99202 ==

== ENCOUNTER → 2021-05-28 15:17 | Outpatient (REF) | payer MEDICAID, SELFPAY ==
--- NOTE | ~2021-05-28 | CT_ITS ---
EXAMINATION: CT HEAD WITHOUT CONTRAST CLINICAL INFORMATION: Headache COMPARISON: Previous head CT March 2020 TECHNIQUE: Contiguous axial imaging was performed from the skull base to vertex without intravenous administration of contrast. This CT examination was performed using dose optimization techniques as appropriate, variously including the following: *Automated exposure control *Adjustment of mA and/or kV according to patient size (this includes techniques or standardized protocols for targeted exams where dose is matched to indication/reason for exam; i.e. extremities or head) *Use of iterative reconstruction technique DLP: 839 mGy-cm FINDINGS: There is no evidence of acute intracranial hemorrhage or territorial infarction. No abnormal mass effect or midline shift is seen. Silva to white matter differentiation is well preserved. No extra-axial fluid collections are identified. The ventricles are normal in size. There is no abnormal attenuation within the brain parenchyma. The osseous structures and soft tissues are normal. The mastoid air cells and visualized portions of the paranasal sinuses are well aerated. CT/CT head/brain wo con IMPRESSION: Unremarkable exam.
--- NOTE | ~2021-05-28 | CT_ITS ---
EXAMINATION: CT CERVICAL SPINE WITHOUT CONTRAST CLINICAL INFORMATION: Headaches and neck pain. COMPARISON: None TECHNIQUE: 2 minutes thin axial and reformatted 2 mm thin sagittal coronal images of cervical spine were obtained. This CT examination was performed using dose optimization techniques as appropriate, variously including the following: *Automated exposure control *Adjustment of mA and/or kV according to patient size (this includes techniques or standardized protocols for targeted exams where dose is matched to indication/reason for exam; i.e. extremities or head) *Use of iterative reconstruction technique DLP: 1210 mGy-cm FINDINGS: There is normal cervical lordosis. The vertebral heights and alignment is normal. There is mild ventral spondylosis C1-C2 disc level. Mild loss of C3-C4 disc height with ventral spondylosis is noted. Rest of the disc heights are normal. There is no visible acute fracture, dislocation or subluxation seen. The craniovertebral junction and the C1-C2 alignment is preserved. There is no visible acute fracture, dislocation or subluxation. The thyroid lobes are symmetrical and normal. Visualized sellar glands are symmetric and normal. The airway is widely patent. CT/CT cervical spine wo con IMPRESSION: No acute fracture, dislocation or subluxation seen. Degenerative disc changes with ventral and posterior spondylosis C3-C4 disc level. Also visualized mild superior spondylosis at C1-C2 disc level. Fleischner guidelines were followed.
== END ==
LOC: HO.SL 15:17
PROVIDERS: Visit Provider Nurse Practitioner Family
DX: M54.2 Cervicalgia (principal); R51.9 Headache, unspecified; G47.19 Other hypersomnia; G47.9 Sleep disorder, unspecified; R06.83 Snoring
CPT/HCPCS: 70450; 72125; 95806

== ENCOUNTER 2022-02-09 10:11 | Emergency (ER) | payer MEDICAID, SELFPAY ==
--- NOTE | ~2022-02-09 | XR_ITS ---
EXAMINATION: LUMBAR SPINE AND AP PELVIS CLINICAL INFORMATION: Pain, atraumatic COMPARISON: None TECHNIQUE: 3 views lumbar spine. One view AP pelvis. FINDINGS: Lumbar spine: There is normal lumbar lordosis. There is grade 1 anterolisthesis L2 L4 over L5 with mild loss of L4-L5 and L5/S1 disc heights. Rest the disc heights are normal. No visible acute fracture, dislocation or subluxation seen. Pelvis: There is normal symmetry of bilateral hip joints and SI joints. No visible fracture or bony abnormality seen. The soft tissues are normal. There are surgical pasha overlie and bilateral iliac bones from previous intervention. XR/XR lumbar spine 2-3V IMPRESSION: Grade 1 anterolisthesis L4 over L5 with mild degenerative disc changes L4-L5 and L5/S1 disc levels. No visible acute fracture or dislocation seen. Unremarkable AP pelvis exam.
--- NOTE | ~2022-02-09 | XR_ITS ---
EXAMINATION: LUMBAR SPINE AND AP PELVIS CLINICAL INFORMATION: Pain, atraumatic COMPARISON: None TECHNIQUE: 3 views lumbar spine. One view AP pelvis. FINDINGS: Lumbar spine: There is normal lumbar lordosis. There is grade 1 anterolisthesis L2 L4 over L5 with mild loss of L4-L5 and L5/S1 disc heights. Rest the disc heights are normal. No visible acute fracture, dislocation or subluxation seen. Pelvis: There is normal symmetry of bilateral hip joints and SI joints. No visible fracture or bony abnormality seen. The soft tissues are normal. There are surgical pasha overlie and bilateral iliac bones from previous intervention. XR/XR pelvis 1-2V IMPRESSION: Grade 1 anterolisthesis L4 over L5 with mild degenerative disc changes L4-L5 and L5/S1 disc levels. No visible acute fracture or dislocation seen. Unremarkable AP pelvis exam.
[2022-02-09 10:28] VITALS: BP 128/94; PULSE 86; RESP 16; TEMP 35.8; O2SAT 94; BMI 33.8
--- NOTE | 2022-02-09 10:56 | ED.BACK ---
HPI - Back Pain/Injury General Chief Complaint: Back Pain/Injury Stated Complaint: BACK PAIN Time Seen by Provider: 02/09/22 10:35 Source: patient Mode of arrival: ambulatory Limitations: no limitations History of Present Illness HPI Narrative: 66-year-old female who presents with lower back pain. Patient tells me that while she was in the shower on she moved her right hip externally and felt a clicking sensation and since then she has had pain in her lower back and pelvis despite taking ibuprofen at home. Pain radiates to bilateral buttocks and down posterior thighs. No sensation change in the lower extremities. No numbness in the groin. No bowel or bladder incontinence. No fevers or chills. Patient reports she has had back pain in the past as well as sciatica and received cortisone injections with improvement of symptoms. Related Data Home Medications Medication Instructions Recorded Confirmed albuterol sulfate 90 mcg/actuation 2 puff inhalation Q6H PRN Wheezing 05/23/20 03/27/21 aerosol inhaler bupropion HCl 300 mg 24 hr tablet, 300 mg PO QAM 05/23/20 03/27/21 extended release (Wellbutrin XL) fluticasone propionate 50 1 spray intranasal DAILY 05/23/20 03/27/21 mcg/actuation nasal spray,suspension lorazepam 0.5 mg tablet 0.5 mg PO BEDTIME PRN Anxiety 05/23/20 03/27/21 Previous Rx's Medication Instructions Recorded cyclobenzaprine 10 mg tablet 10 mg PO TID PRN muscle spasm #10 04/02/20 tabs methylcellulose (laxative) 500 mg 500 mg PO DAILY #30 tabs 09/12/20 tablet (Citrucel) cyclobenzaprine 10 mg tablet 10 mg PO TID PRN muscle spasm #14 02/09/22 tabs ketorolac 10 mg tablet 10 mg PO Q8H PRN pain #20 tabs 02/09/22 lidocaine 5 % topical patch 1 patch topical DAILY #15 ea 02/09/22 (Lidoderm) Allergies Allergy/AdvReac Type Severity Reaction Status Date / Time amoxicillin [AMOXICILLIN] Allergy Intermediate SWELLING, Verified 03/27/21 11:41 hives codeine [CODEINE] Allergy Intermediate HIVES;ITCHY, Verified 03/27/21 11:41 itching oxycodone [OXYCODONE] Allergy Intermediate HIVES;ITCHY, Verified 03/27/21 11:41 itching Penicillins [PENICILLINS] Allergy Intermediate SWELLING Verified 03/27/21 11:41 aspirin [ASA] Allergy Mild RASH, Verified 03/27/21 11:41 stomach pain metronidazole AdvReac Intermediate insomnia Verified 03/27/21 11:41 Review of Systems Review of Systems: Yes all other systems are reviewed and are negative Constitutional: Constitutional: Reports no additional constitutional complaints, Denies body ache(s), Denies chills, Denies fever(s), Denies headache(s) and Denies weakness Eyes: Eyes: Reports no additional eye complaints and Denies change in vision ENT: Reports system reviewed and no additional complaints, except as documented, Denies dizziness, Denies headache(s), Denies nasal congestion, Denies nasal discharge and Denies neck pain Cardiovascular: Cardiovascular: Reports no additional cardiovascular complaints, Denies chest pain, Denies leg edema and Denies dyspnea Respiratory: Respiratory: Reports no additional respiratory complaints, Denies cough and Denies dyspnea Gastrointestinal: Gastrointestinal: Reports no additional gastrointestinal complaints, Denies abdominal pain, Denies diarrhea, Denies nausea and Denies vomiting Genitourinary: Genitourinary: Reports no additional female genitourinary complaints and Denies urinary incontinence Musculoskeletal: Musculoskeletal: Reports no additional musculoskeletal complaints, Reports back pain, Denies arthralgias, Denies joint swelling, Denies neck pain, Denies numbness and Denies tingling Integumentary/Breasts: Skin/Breast: Reports system reviewed and no additional complaints, except as docu and Denies rash Neurologic: Reports system reviewed and no additional complaints, except as documented, Denies Abnormal speech present, Denies dizziness, Denies headache(s), Denies numbness, Denies tingling and Denies weakness PMFSH Past Medical History Attestation statement: The following information was validated with the patient. Source: old records reviewed and nursing notes reviewed Medical History JOSEPH positive Anti-cardiolipin antibody positive Asthma Brachial plexus injury Depression Eczema GERD (gastroesophageal reflux disease) IBS (irritable bowel syndrome) Polyarthralgia Surgical History H/O abdominoplasty H/O breast augmentation History of partial hysterectomy Hx of section Family History Family History Mother Diabetes Rheumatoid arthritis Social History Social History Household Members: Children Alcohol intake: current Alcohol intake frequency: does not drink Alcohol type: wine Advance Directives: No Advance Directives Information Provided: No Physical Exam Vital Signs: Vital Signs: Last Vital Signs Temp 96.4 F L 02/09/22 10:28 Pulse 86 02/09/22 10:28 Resp 16 02/09/22 10:28 BP 128/94 H 02/09/22 10:28 Pulse Ox 94 02/09/22 10:28 O2 Del Method 02/09/22 10:28 BMI result Body Mass Index 33.8 Const: General: cooperative, healthy appearing, comfortable and no acute distress Orientation/consciousness: patient oriented x3 Limitations: no limitations HEENT: Head: Yes normal to inspection Ears: hearing grossly normal bilaterally General nose exam: Normal external nose present Face and sinus: Yes normal facial exam Mouth: Normal oral and palatal mucosa present Throat: Yes posterior oropharynx normal Eyes: General: appearance normal, both eyes and all related structures Pupils: Equal, round and reactive pupils present Neck: Neck: Yes normal visual inspection Chest: Chest palpation & inspection: normal inspection of the chest Resp: Effort & Inspection: normal respiratory effort Auscultation: clear to auscultation bilaterally Cardio: Rate: regular rate Rhythm: regular rhythm Peripheral pulses: Peripheral pulses 2+ throughout GI: Inspection: Yes normal to inspection Palpation (GI): Soft to palpation and nontender Auscultation: normal bowel sounds Back/Spine/Pelvis: Other: Lumbar midline tenderness with no step-offs deformities. Pain is worsened with flexion and extension lumbar spine Pain to entire lumbar soft tissue area with palpable muscle spasm. Pain on palpation to bilateral buttocks Patient ambulatory. No tenderness to lateral hips bilaterally. ROM limited d/t back pain and limited cooperativeness of exam Thoracic/Lumbar Spine: thoracic and lumbar spine normal to inspection Skin: General skin exam: no rashes or lesions noted Neuro: General: patient oriented x3, moves all extremities, no focal motor deficits and normal sensation to monofilament Cranial nerves: Yes Equal, round and reactive pupils present Cognition (Neuro): normal cognition Speech: No Abnormal speech present Gait exam (Neuro): Normal gait present Motor exam (neuro): 5/5 motor strength present throughout Sensory Exam: Normal double simultaneous stimulation for sensation Deep tendon reflexes (DTR's): Right patellar reflex intensity grade: 2+ and Left patellar reflex intensity grade: 2+ Extrem: General: Yes normal to inspection Course Course Course Narrative: Continued pain after toradol. Now willing to have x-rays. These were ordered. Discussed narcotics w/ patient d/t several allergies. She tells me she is able to have morphine and is able to get a ride home. Morphine IM ordered Reevaluation(s) Reevaluation #1: 1420-x-rays shows degenerative changes but no other acute finding. Likely lumbar radiculopathy. Recommend patient follow-up with primary care doctor for outpatient MRI. No fever, neurological findings, history of IV drug abuse or immunocompromised state to suggest epidural abscess. No incontinence, saddle anesthesia, neurological findings to suggest cord compression. Reviewed worrisome signs and symptoms with the patient when to return to the emergency room. Comfortable discharge home. MDM - Back Pain/Injury MDM Narrative Medical decision making narrative: 56 yo female here with low back pain/bilateral pelvis for 2 days after moving her hip externally in the shower. Normal neuro exam-no focal findings or red flag symptoms Would like to obtain imaging due to midline tenderness. At this time patient declined imaging. She would like some analgesia and then we will rediscuss Differential Diagnosis Differential diagnosis: Likely lumbar radiculopathy Medical Records Attestation: I reviewed the patient's medical records. Lab Data Attestation: I reviewed the patient's lab results. Imaging Data pelvis/llumbar x-ray: Attestation: I personally reviewed and interpreted this imaging study as follows: Radiologist's impression: FINDINGS: Lumbar spine: There is normal lumbar lordosis. There is grade 1 anterolisthesis L2 L4 over L5 with mild loss of L4-L5 and L5/S1 disc heights. Rest the disc heights are normal. No visible acute fracture, dislocation or subluxation seen. Pelvis: There is normal symmetry of bilateral hip joints and SI joints. No visible fracture or bony abnormality seen. The soft tissues are normal. There are surgical pasha overlie and bilateral iliac bones from previous intervention.? XR/XR lumbar spine 2-3V IMPRESSION: Grade 1 anterolisthesis L4 over L5 with mild degenerative disc changes L4-L5 and L5/S1 disc levels. No visible acute fracture or dislocation seen. ? Unremarkable AP pelvis exam. Discharge Plan Discharge Clinical Impression: Lumbar radiculopathy Patient Disposition: Home, Self-Care Instructions: Lumbar Radiculopathy (ED), Lower Back Exercises (ED) Additional Instructions: Follow-up with your PCP for an outpatient MRI Return for incontinence of urine/stool, numbness in the groin, weakness in the lower extremities, fever >100.4 No heavy lifting or bending Prescriptions: New cyclobenzaprine 10 mg tablet 10 mg PO TID PRN (Reason: muscle spasm) Qty: 14 0RF ketorolac 10 mg tablet 10 mg PO Q8H PRN (Reason: pain) Qty: 20 0RF lidocaine [Lidoderm] 5 % adhesive patch,medicated 1 patch topical DAILY Qty: 15 0RF Rx Instructions: leave on most painful area for up to 12 hrs No Action cyclobenzaprine 10 mg tablet 10 mg PO TID PRN (Reason: muscle spasm) Qty: 10 0RF Citrucel 500 mg tablet 500 mg PO DAILY Qty: 30 2RF albuterol sulfate 90 mcg/actuation HFA aerosol inhaler 2 puff inhalation Q6H PRN (Reason: Wheezing) lorazepam 0.5 mg tablet 0.5 mg PO BEDTIME PRN (Reason: Anxiety) fluticasone propionate 50 mcg/actuation spray,suspension 1 spray intranasal DAILY Rx Instructions: administer into each nostril bupropion HCl [Wellbutrin XL] 300 mg tablet extended release 24 hr 300 mg PO QAM Referrals: Barry Vivas MD [Primary Care Provider] - 1 week Stand Alone Forms: Work/School Release Interventions: ED Discharge Assessment Last Done: 02/09/22 13:33 Discharge Date/Time: 02/09/22 13:34
[2022-02-09] MEDS: Ketorolac Tromethamine 60 MG/2 ML VIAL IM (11:06)
[2022-02-09] MEDS: Morphine Sulfate 10 MG/ML CARTRIDGE 6 MG IM (12:47)
== END 2022-02-09 13:34 | disposition home or self-care (01) ==
PROVIDERS: Emergency Provider Emergency Medicine; PCP Internal Medicine
DX: M54.16 Radiculopathy, lumbar region (principal); R10.2 Pelvic and perineal pain
CPT/HCPCS: 72100; 72170; 96372; 99283; 99284; J1885; J2270

== ENCOUNTER 2022-03-08 08:54 | Outpatient (REF) | payer MEDICAID, SELFPAY ==
--- NOTE | ~2022-03-08 | US_ITS ---
EXAMINATION: US ABDOMEN LIMITED CLINICAL INFORMATION: Umbilical hernia. COMPARISON: CT abdomen and pelvis 12/27/2015. TECHNIQUE: Real-time imaging of the periumbilical region. Exam was performed with Valsalva maneuver and patient standing. FINDINGS: There is a small umbilical hernia containing fat measuring maximum 1.8 cm US/US abdomen limited IMPRESSION: Small umbilical hernia.
== END 2022-03-08 08:55 | disposition home or self-care (01) ==
LOC: HO.HMGCX 08:54
PROVIDERS: PCP General Practice; Visit Provider General Practice
DX: K42.9 Umbilical hernia without obstruction or gangrene (principal)
CPT/HCPCS: 76705

== ENCOUNTER → 2022-07-29 15:47 | Outpatient (BNVA) | payer MEDICAID, SELFPAY | PROVIDERS: PCP General Practice; Visit Provider Nurse Practitioner Family | DX: K21.9 Gastro-esophageal reflux disease without esophagitis (principal); K58.9 Irritable bowel syndrome, unspecified | CPT/HCPCS: 99212 ==

== ENCOUNTER 2023-02-18 09:18 | Outpatient (REF) | payer MEDICAID, SELFPAY ==
--- NOTE | ~2023-02-18 | XR_ITS ---
EXAMINATION: X-RAY RIGHT KNEE, X-RAY LEFT KNEE CLINICAL INFORMATION: Pain COMPARISON: 05/23/2020 TECHNIQUE: AP and 2 lateral views of the left knee. AP and lateral views of the right knee. FINDINGS: RIGHT KNEE: No significant joint effusion. Tiny tricompartmental osteophytes. Mild medial joint space narrowing. Small osteophyte at the quadriceps tendon insertion to the patella. LEFT KNEE: Trace joint effusion. Tiny tricompartmental osteophytes. Mild medial joint space narrowing. Small osteophyte at the quadriceps tendon insertion to the patella. XR/XR knee RT 2V IMPRESSION: Mild degenerative changes in the bilateral knees.
--- NOTE | ~2023-02-18 | XR_ITS ---
EXAMINATION: X-RAY RIGHT KNEE, X-RAY LEFT KNEE CLINICAL INFORMATION: Pain COMPARISON: 05/23/2020 TECHNIQUE: AP and 2 lateral views of the left knee. AP and lateral views of the right knee. FINDINGS: RIGHT KNEE: No significant joint effusion. Tiny tricompartmental osteophytes. Mild medial joint space narrowing. Small osteophyte at the quadriceps tendon insertion to the patella. LEFT KNEE: Trace joint effusion. Tiny tricompartmental osteophytes. Mild medial joint space narrowing. Small osteophyte at the quadriceps tendon insertion to the patella. XR/XR knee LT 2V IMPRESSION: Mild degenerative changes in the bilateral knees.
== END 2023-02-18 09:19 | disposition home or self-care (01) ==
LOC: HO.HHCX 09:18
PROVIDERS: Visit Provider Nurse Practitioner Family
DX: M25.561 Pain in right knee (principal); M25.562 Pain in left knee; G89.29 Other chronic pain
CPT/HCPCS: 73560

== ENCOUNTER 2023-08-04 | Outpatient (REF) | payer OTHER, SELFPAY ==
[2023-08-07 12:28] LABS: C. trachomatis RNA TMA NOT DETECTED (NOT DETECTED); N. gonorrhoeae RNA TMA NOT DETECTED (NOT DETECTED)
== END 2023-08-04 00:01 | disposition home or self-care (01) ==
LOC: HO.HHCLNP
PROVIDERS: Visit Provider Internal Medicine
DX: B37.31 Acute candidiasis of vulva and vagina (principal)
CPT/HCPCS: 36415; 81513; 87491; 87591

== ENCOUNTER 2023-10-21 09:46 | Outpatient (REF) | payer OTHER, SELFPAY ==
[2023-10-21 12:30] LABS: Alanine Aminotransferase 13 U/L (0-31); Albumin Level 4.1 g/dL (3.5-5.0); Alkaline Phosphatase 79 U/L (39-117); Anion Gap 10 (12-20); Aspartate Amino Transferase 18 U/L (5-31); Bilirubin Total 0.5 mg/dL (0.0-1.0); Blood Urea Nitrogen 16 mg/dL (9-16); Calcium 9.8 mg/dL (8.4-10.2); Carbon Dioxide 30 mmol/L (22-29); Chloride 109 mmol/L (96-108); Cholesterol 164 mg/dL (<200); Estimated Glomerular Filt Rate > 60; Glucose Random 83 mg/dL (60-115); HDL Cholesterol 55 mg/dL (>40); LDL Cholesterol Calculated 100 mg/dL (<100); Potassium 4.2 mmol/L (3.3-5.1); Sodium 145 mmol/L (135-145); Total Protein 7.4 g/dL (6.5-8.0); Triglycerides 47 mg/dL (<150)
[2023-10-21 12:35] LABS: Folate 9.9 ng/mL (> or = 4.0); Vitamin B12 1033 pg/mL (200-900)
== END 2023-10-21 09:47 | disposition home or self-care (01) ==
LOC: HO.HHCL 09:46
PROVIDERS: Visit Provider Nurse Practitioner Family
DX: Z00.00 Encounter for general adult medical examination without abnormal findings (principal)
CPT/HCPCS: 36415; 80053; 80061; 82607; 82746

== ENCOUNTER 2023-11-04 14:45 | Outpatient (REF) | payer OTHER, SELFPAY ==
[2023-11-05 08:09] LABS: Syphilis Screen Nonreactive (Nonreactive)
[2023-11-05 08:22] LABS: HBc Num1 0.07 S/CO (0.00-0.79); HBsAGNum1 0.25 S/CO (0.00-0.99); Hepatitis B Core Antibody Nonreactive (Nonreactive); Hepatitis B Surface Antigen Negative (Negative); ~Hepatitis B Surface Antibody REACTIVE (Nonreactive)
[2023-11-07 16:34] LABS: C. trachomatis RNA TMA NOT DETECTED (NOT DETECTED); N. gonorrhoeae RNA TMA NOT DETECTED (NOT DETECTED); Trichomonas (NAAT) NOT DETECTED (NOT DETECTED)
== END 2023-11-04 14:46 | disposition home or self-care (01) ==
LOC: HO.HHCL 14:45
PROVIDERS: Visit Provider Advanced Practice Midwife
DX: Z11.3 Encounter for screening for infections with a predominantly sexual mode of transmission (principal); Z12.4 Encounter for screening for malignant neoplasm of cervix
CPT/HCPCS: 36415; 86704; 86706; 86780; 87340; 87491; 87591; 87661

== ENCOUNTER 2024-01-21 17:22 | Outpatient (REF) | payer OTHER, SELFPAY ==
[2024-01-21 17:39] LABS: Appearance Urine Clear; Color Urine Yellow; Glucose Urine UA Negative (Negative); Leukocyte Esterase Urine Moderate (2+) (Negative); Nitrite Urine Negative (Negative); Specific Gravity - Urine 1.015 (1.005-1.025); UMIC TRIGGER UACC YES; Urine Blood Moderate (2+) (Negative); Urine Ketones Negative (Negative); Urine Protein Trace mg/dL (Neg-Trace)
[2024-01-21 18:04] LABS: Bacteria Urine None Seen (None Seen); Hyaline Casts Urine 0-2 /LPF (0-2); RBC Urine >20 /HPF (0-2); Squamous Epithelial Cell Urine 0-2 /HPF (0-2); UACC Culture Trigger YES; WBC Urine >50 /HPF (0-5)
== END 2024-01-21 17:23 | disposition home or self-care (01) ==
LOC: HO.HHCLNP 17:22
PROVIDERS: Visit Provider Student in an Organized Health Care Education/Training Program
DX: R30.0 Dysuria (principal)
CPT/HCPCS: 81001; 87086; 87088; 87186

== ENCOUNTER 2024-04-15 13:32 | Outpatient (REF) | payer OTHER, SELFPAY ==
[2024-04-15 15:12] LABS: Adenovirus PCR Not Detected (Not Detect.); Bordetella parapertussis PCR Not Detected (Not Detect.); Bordetella pertussis PCR Not Detected (Not Detect.); Chlamydia pneumoniae PCR Not Detected (Not Detect.); Coronavirus 229E PCR Not Detected (Not Detect.); Coronavirus HKU1 PCR Not Detected (Not Detect.); Coronavirus NL63 PCR Not Detected (Not Detect.); Coronavirus OC43 PCR Not Detected (Not Detect.); Human metapneumovirus PCR Not Detected (Not Detect.); Influenza A PCR Not Detected (Not Detect.); Influenza B PCR Not Detected (Not Detect.); Mycoplasma pneumoniae PCR Not Detected (Not Detect.); Parainfluenza 1 PCR Not Detected (Not Detect.); Parainfluenza 2 PCR Not Detected (Not Detect.); Parainfluenza 3 PCR Not Detected (Not Detect.); Parainfluenza 4 PCR Not Detected (Not Detect.); RSV PCR Not Detected (Not Detect.); Rhino/Enterovirus PCR Not Detected (Not Detect.)
[2024-04-15 15:14] LABS: SARS-CoV-2 PCR Not Detected (Not Detect.)
== END 2024-04-15 13:33 | disposition home or self-care (01) ==
LOC: HO.HHCLNP 13:32
PROVIDERS: Visit Provider Registered Nurse
DX: B34.9 Viral infection, unspecified (principal)
CPT/HCPCS: 87633

== ENCOUNTER 2024-04-22 11:00 | Outpatient (REF) | payer OTHER, SELFPAY ==
--- NOTE | ~2024-04-22 | MM_ITS ---
EXAMINATION: MM SCREENING DIGITAL BREAST TOMOSYNTHESIS, BILATERAL CLINICAL INFORMATION: Screening. Asymptomatic. COMPARISON: Mammography: Comparison is made with relevant avialable priors. TECHNIQUE: Digital mammography is performed in craniocaudal and mediolateral oblique views along with computer-aided detection (CAD). Digital breast tomosynthesis is performed in implant-displaced craniocaudal and implant-displaced mediolateral oblique views along with computer-aided detection (CAD). FINDINGS: There are scattered areas of fibroglandular density (ACR BI-RADS breast composition Category b). Bilateral retropectoral saline implants are stable appearing. There are no significant masses, abnormal calcifications, or other abnormalities. MM/MM tomosynthesis screen imp BI IMPRESSION: There are no significant changes from prior study. ASSESSMENT: BI-RADS BI-RADS 2 - Benign Findings RECOMMENDATION: Routine annual mammography screening. 1 year F/U This patient's information was entered into a reminder system with a target due date for their next mammogram. Electronically signed by: Lelo Alvarez DO 05/04/2024 04:46 PM [facility]
[2024-04-22 13:54] LABS: Estimated Average Glucose 103 mg/dL; Hemoglobin A1C 116.4096 umol/L; Hemoglobin A1c % 5.2 % (<6.0); Total Hemoglobin (HGBA1C) 3446.0341 umol/L
[2024-04-22 14:17] LABS: Alanine Aminotransferase 15 U/L (0-31); Albumin Level 4.2 g/dL (3.5-5.0); Alkaline Phosphatase 70 U/L (39-117); Anion Gap 8 (12-20); Aspartate Amino Transferase 20 U/L (5-31); Bilirubin Total 0.4 mg/dL (0.0-1.0); Blood Urea Nitrogen 14 mg/dL (9-16); Calcium 9.4 mg/dL (8.4-10.2); Carbon Dioxide 27 mmol/L (22-29); Chloride 110 mmol/L (96-108); Estimated Glomerular Filt Rate > 60; Glucose Random 94 mg/dL (60-115); Potassium 4.1 mmol/L (3.3-5.1); Sodium 141 mmol/L (135-145); Total Protein 7.6 g/dL (6.5-8.0)
[2024-04-22 14:30] LABS: ~HepC Num1 0.12 S/CO (0.00-0.79); ~Hepatitis C Antibody Nonreactive (Nonreactive)
[2024-04-22 14:34] LABS: TSH reflex Free T4 2.15 uIU/mL (0.32-4.0)
== END 2024-04-22 11:01 | disposition home or self-care (01) ==
LOC: HO.MAMMO 11:00
PROVIDERS: PCP Nurse Practitioner Family; Visit Provider Nurse Practitioner
DX: Z12.31 Encounter for screening mammogram for malignant neoplasm of breast (principal); E66.812 Obesity, class 2; Z13.9 Encounter for screening, unspecified; E55.9 Vitamin D deficiency, unspecified
CPT/HCPCS: 36415; 77063; 77067; 80053; 82306; 83036; 84443; 86803

== ENCOUNTER → 2024-04-22 11:30 | Outpatient (BNV) | payer OTHER, SELFPAY | PROVIDERS: PCP Nurse Practitioner Family; Visit Provider Internal Medicine | DX: Z12.31 Encounter for screening mammogram for malignant neoplasm of breast (principal) | CPT/HCPCS: 77063; 77067 ==

== ENCOUNTER 2024-06-09 | Outpatient (REF) | payer OTHER, SELFPAY ==
--- OUTSIDE RECORDS SUMMARY | 2024-06-10 12:00 | XMS_ITS | Encounter Summary ---
Author Organization [employer] Address [address] [facility] [address] [place] [address] Care Team Providers Care Roving Machine Operator Name Role Phone Padmini Jalyn GALEP Primary Care Provider [phone] Juana Mcclain NP Primary Care Provider [phone] Reason for Visit * Reason Onset Date Comments Med Refill 02/17/2023 Encounter Details Date Type Department Care Team (Late st Contact Info) Description 02/17/[address] [facility] [address] [place] [id number] Damian Babin MD [address] [place] [address] Bee sting reaction, accidental or unintentional, initial encounter Social History Tobacco Use Types Packs/Day Years Used Date Smoking Tobacco: Never Passive Smoke Exposure: Never Smokeless Tobacco: Never Alcohol Use Standard Drinks/Week Comments Not Currently 0 (1 standard drink = 0.6 oz pur e alcohol) Depression Answer Date Recorded Patient Health Questionnaire-9 Score 5 05/24/2022 Housing Stability Answer Date Recorded What is your housing situation today? I have steven lemons 02/10/[address] you li ve. Do you have problems with any of the following? None of the above 02/10/2023 Food Insecurity Answer Date Recorded Within the past 12 months, y ou worried that your food would run out before you got money to buy more: Never True 02/10/2023 Within the past 12 months,th e food you bought just didn't last and you didn't have enough money to get more: Never True Transportation Answer Date Recorded In the past 12 months, has l ack of transportation kept you from medical appts, meetings, work or from getting things needed for daily living? No 02/10/2023 Utilities Answer Date Recorded In the past 12 months, has t he electric, gas, oil or water company threatened to shut off services in your home? Yes 02/02/2023 Depression Answer Date Recorded Patient Health Questionnaire-2 Score 1 05/24/2022 Comments Unknown Sex and Gender Information Value Date Recorded Sex Assigned at Female 02/25/2022 10:25 AM EDT Legal Sex Female 10:25 AM EDT Gender Identity Female 02/25/2022 10:25 AM EDT Sexual Orientation Straight 01/21/2024 12 :16 PM EDT documented as of this encounter Plan of Treatment Upcoming Encounters Date Type Department Care Team (Late st Contact Info) Description 06/16/2024 9:30 AM EST Office Visit [facility] [address] [place] [address] Juana Mcclain NP [address] [place] [address] documented as of this encounter Visit Diagnoses Diagnosis Bee sting reaction, accidental or unintentional, initial encounter documented in this encounter Additional Health Concerns Assessment Noted Time PHQ-9 Depression Total Score: 5 05/24/19 23 10:19 AM EST documented as of this encounter Care Teams Roving Machine Operator Relationship Specialty Start Date End Date Jalyn Washington FNP [address] [place] [address] PCP - General Family Medicine 05/17/22 12/29/23 Juana Mcclain NP [address] [place] [address] PCP - General Family Medicine 12/30/23 documented as of this encounter
--- OUTSIDE RECORDS SUMMARY | 2024-06-10 12:00 | XMS_ITS | Encounter Summary ---
Author Organization [employer] Address [address] [place] [address] 7 [place] [address] Care Team Providers Care Concrete Swimming Pool Installer Name Role Phone Juana Mcclain NP Primary Care Provider [phone] Reason for Visit * Reason Onset Date Comments Med Refill 01/21/2024 Encounter Details Date Type Department Care Team ([facility] st Contact Info) Description 01/21/2024 Refill [facility] [address] [place] [address] Jalyn Washington FNP [address] [place] [address] Social History Tobacco Use Types Packs/Day Years Used Date Smoking Tobacco: Never Passive Smoke Exposure: Never Smokeless Tobacco: Never Alcohol Use Standard Drinks/Week Comments Not Currently 0 (1 standard drink = 0.6 oz pur e alcohol) special occasions Depression Answer Date Recorded Patient Health Questionnaire-9 Score 8 08/27/2023 Patient Health Questionnaire-9 Score 8 08/27/2023 Last PHQ-9: Questionnaire Data Not on file 0 08/27/2023 Housing Stability Answer Date Recorded What is your housing situation today? I am not s ure 08/27/[address] you li ve. Do you have problems with any of the following? None of the above 08/27/2023 Food Insecurity Answer Date Recorded Within the past 12 months, y ou worried that your food would run out before you got money to buy more: Never True 08/27/2023 Within the past 12 months,th e food you bought just didn't last and you didn't have enough money to get more: Never True 04/2023 Transportation Answer Date Recorded In the past 12 months, has l ack of transportation kept you from medical appts, meetings, work or from getting things needed for daily living? No 08/27/2023 Utilities Answer Date Recorded In the past 12 months, has t he electric, gas, oil or water company threatened to shut off services in your home? No 08/27/2023 Depression Answer Date Recorded Patient Health Questionnaire-2 Score 3 08/27/2023 Comments No Sex and Gender Information Value Date Recorded Sex Assigned at Female 02/25/2022 10:25 AM EDT Legal Sex Female 10:25 AM EDT Gender Identity Female 02/25/2022 10:25 AM EDT Sexual Orientation Straight 01/21/2024 12 :16 PM EDT documented as of this encounter Plan of Treatment Upcoming Encounters Date Type Department Care Team (Late st Contact Info) Description 06/16/2024 9:30 AM EST Office Visit [facility] [address] [place] [address] Juana Mcclain NP [address] [place] [address] documented as of this encounter Visit Diagnoses Not on filedocumented in this encounter Additional Health Concerns Assessment Noted Time PHQ-9 Depression Total Score: 8 08/27/19 24 4:23 PM EDT documented as of this encounter Care Teams Concrete Swimming Pool Installer Relationship Specialty Start Date End Date Juana Mcclain NP [address] [place] [address] PCP - General Family Medicine 12/30/23 documented as of this encounter
--- OUTSIDE RECORDS SUMMARY | 2024-06-10 12:00 | XMS_ITS | Clinical Summary ---
Author Organization [employer] Address [address] [place] [address] 7 [place] [address] Care Team Providers Care Back Roller Name Role Phone Juana Mcclain NP Primary Care Provider [phone] Allergies Active Allergy Reactions Criticality Noted Date Comments Acetaminophen-Codeine 08/04/2023 Hives, and seeing black shadows Amoxicillin Hives 2014 Aspirin Other 2014 GI upset Other Reaction(s): Stomach Pain Bee Venom 02/10/2023 Codeine Itching 2014 Metronidazole 2014 Hives and saw black shadow Oxycodone Itching 2014 Penicillin G Hives 2014 Penicillins Hives 05/24/2022 Medications albuterol (Ventolin HFA) 108 (90 Base) MCG/ACT inhalerIndication s:Mild intermittent asthma without complication INHALE 2 PUFFS EVERY 4 HOURS NEEDED 20.1 g 2 4 Active cetirizine (ZyrTEC) 10 MG tabletIndications :Seasonal allergies Take 1 tablet (10 mg) by mouth Once per day. 90 tablet 3 4 01/22/20 25 Active omeprazole (PriLOSEC) [address] capsule Take 1 capsule by mouth 2 times daily. 4 Active cyclobenzaprine (Flexeril) 5 MG tablet TAKE 1 TABLET BY MOUTH THREE TIMES DAILY NEEDED FOR MUSCLE SPASMS 30 tablet 3 4 Active lidocaine (Lidoderm) 5 % patchIndications: Chronic pain of both knees APPLY 1 PATCH TOPICALLY TO SKIN, LEAVE ON FOR 12 HOURS AND OFF FOR 12 HOURS DIRECTED 30 patch 4 Active buPROPion XL (Wellbutrin XL) 300 MG 24 hr tabletIndications :Major depressive disorder in full remission, unspecified whether recurrent (CMS/HCC) Take 1 tablet (300 mg) by mouth in the morning. 91 tablet 4 Active Acetaminophen Extra Strength 500 MG tabletIndications :Chronic pain of both knees TAKE 2 TABLETS BY MOUTH EVERY 6 HOURS NEEDED MILD PAIN 30 tablet 2 4 Active hydroCHLOROthiazi de 12.5 MG tabletIndications :Essential hypertension Take 1 tablet (12.5 mg) by mouth Once per day. 90 tablet 1 4 Active fluticasone (Flonase) 50 MCG/ACT nasal sprayIndications: Viral syndrome Use 1 spray each nostril daily. Shake gently. Before first use, prime pump. After use, clean tip and replace cap. 16 g 2 4 Active cholecalciferol (Vitamin D-3) 25 MCG (1000 UT) capsuleIndication s:Hypovitaminosis D TAKE 1 CAPSULE BY MOUTH EVERY DAY 30 capsule 1 4 Active sulfamethoxazole- trimethoprim (Bactrim DS) 800-160 MG tablet Take 1 tablet by mouth 2 times daily for 3 days. 6 tablet 5 06/12/19 25 Active fluconazole (Diflucan) 150 MG tablet Take 1 tablet (150 mg) by mouth 1 (one) time for 1 dose. 1 tablet 5 06/09/19 25 Active Problems Problem Noted Date Diagnosed Date Routine health maintenance 03/03/2024 Assessment & Plan (03/03/2024 12:19 PM EST): Healthy 58 y.o. F -Optometry: over 3 years ago. Will make an appointment for routine exam -Dental: established with dental home near [facility]. -Last seen Apr 2023 -Breast CA: due for routine screening via mammogram. Would like afternoon appointment around 3 pm; if not [facility] -Cervical CA: screening completed 12/2023, however results not received as lab did ot run the test. Will need repeat testing; appointment scheduled today. -Colon CA: completed 10 years ago in [facility]. Had polyps removed. -Lung CA: N/A; patient was never a smoker -Outstanding IZ: decline immunizations today -Declined HIV testing today but is agreeable to Hep C testing. No concern for STI Class 2 obesity 02/18/2024 Assessment & Plan (03/03/2024 1:36 PM EST): -Healthy diet and exercise teaching completed: Eat a variety of fruit and vegetables, whole grains such as whole-wheat flour, bulgur (cracked wheat), oatmeal, and brown rice. Intake protein from beans, nuts, fish, and lean meats. Eat low-fat or fat- free dairy products. Limit highly processed foods such as hot dogs, sandwich meat, fast foods, etc. Engage in minimum of 150 min of moderate intensity exercise weekly -labs ordered to assess for endocrine contribution and resulting metabolic effects Difficult or painful urination 01/21/2024 Overview (03/03/2024): Last Assessment & Plan: Urine dipstick blood mod, LE small, nitrates neg Chem 09/2023 cr and LFTS wnl, CBC 05/2022 wnl -symptoms for LUTI ,neg for CVA -sent to lab UA w reflex to cx -will call pt if need to change ATB -start macrobid x 5 days and pyridium -tylenol prn -denies allergy to tylenol and takes already PRN -alarm signs and symptoms discussed w pt Assessment & Plan (01/21/2024 5:49 PM EDT): Urine dipstick blood mod, LE small, nitrates neg Chem 09/2023 cr and LFTS wnl, CBC 05/2022 wnl -symptoms for LUTI ,neg for CVA -sent to lab UA w reflex to cx -will call pt if need to change ATB -start macrobid x 5 days and pyridium -tylenol prn -denies allergy to tylenol and takes already PRN -alarm signs and symptoms discussed w pt Essential hypertension 05/24/2022 Overview (03/03/2024): Last Assessment & Plan: Elevated BP -not took BP med today -encouraged pt to be complaint w med and also possible reactive to pain -advised to bring home BP readings and to f w PCP Assessment & Plan (04/15/2024 8:11 AM EST): - BP elevated on initial and repeat today, Ms. Win reports she had not taken her BP meds today and in need of refill. No cardiac symptoms - Referral of hydrochlorothiazide sent to pharmacy. Encouraged to follow up/contact office if home readings cont to be above goal Assessment & Plan (03/03/2024 1:34 PM EST): -stable with hydrochlorothiazide 12.5 mg -advised continued med compliance and daily home monitoring -low salt diet and routine physical activity discussed -The 10-year ASCVD risk score (Shana ARANA, et al., 2019) is: 2.4% Values used to calculate the score: Age: 58 years Sex: Female Is Non- : No Diabetic: No Tobacco smoker: No Systolic Blood Pressure: 124 mmHg Is BP treated: No HDL Cholesterol: 55 mg/dL Total Cholesterol: 164 mg/dL -plan to obtain baseline EKG at follow-up visit Assessment & Plan (01/21/2024 5:49 PM EDT): Elevated BP -not took BP med today -encouraged pt to be complaint w med and also possible reactive to pain -advised to bring home BP readings and to f w PCP Bilateral chronic knee pain 05/24/2022 Umbilical hernia with obstruction, without gangr hernesto 05/24/2022 Major depressive disorder in full remission 04/29 Assessment & Plan (03/03/2024 12:16 PM EST): -patient reports being stable on current regimen -will obtain screening questioner at next visit Seasonal allergies 05/24/2022 Dry mouth 05/24/2022 Mild intermittent asthma without complication Hot flash, menopausal 05/24/2022 Gastroesophageal reflux disease 2014 Allergic rhinitis 2014 Depressive disorder 2014 Eczema 2014 Insomnia 2014 Irritable bowel syndrome 2014 Sciatica 2014 Encounters Date Type Department Care Team Description 06/09/2024 4:20 PM EST Office Visit [facility] [address] [place] [phone] Francis Dvaalos MD Dysuria (Primary Dx); Urination frequency; Acute vaginitis 06/01/[address] [address] Gregory Guzman MA chartprep 05/27/[address] NUTRITION APPT REQUEST 04/23/2024 10:00 AM EST Office Visit [address] [phone] Juana Mcclain NP Class 2 obesity (Primary Dx); Hypovitaminosis D; Dietary counseling; Exercise counseling 04/23/2024 Travel 04/15/[address] [address] Gregory Guzman MA Appointment Confirmation (BI MAMMOGRAM SCREENING TOMOSYNTHESIS BILATERA scheduled for 04/22/24 @ 11:30am ) 04/14/2024 6:20 PM EST Office Visit [facility] [address] [address] Ling Cruz FNP Viral syndrome (Primary Dx); Essential hypertension 04/14/2024 Travel 04/06/[address] [address] Gregory Guzman MA chartprep from Last 3 Months Immunizations Name Administration Dates Next Due Hep B, adult 06/29/2009,06/01/2009 Influenza injectable quadrivalent preservative f ree 03/28/2020 Influenza, IIV3, injectable 01/24/2011, 0 Influenza, seasonal, injectable, preservative fr ee 03/30/2013 Novel [id number] 05/02/2009 Td (adult), unspecified 07/11/2006 Tdap 12/16/2019 Family History Medical History Relation Name Comments Diabetes Maternal Grandmother Hypertension Maternal Grandmother Arthritis Mother Diabetes Mother Relation Name Status Comments Maternal Grandmother Mother Social History Tobacco Use Types Packs/Day Years Used Date Smoking Tobacco: Never Passive Smoke Exposure: Never Smokeless Tobacco: Never Tobacco Cessation:Counseling Given: Not Answered Alcohol Use Standard Drinks/Week Comments Yes 4 (1 standard drink = 0.6 oz pur e alcohol) on the weekends Depression Answer Date Recorded Patient Health Questionnaire-9 Score 0 04/23/2024 Patient Health Questionnaire-9 Score 0 04/23/2024 Last PHQ-9: Questionnaire Data Not on file 1 06/24/2023 Housing Stability Answer Date Recorded What is [...] Answer Date Recorded Patient Health Questionnaire-2 Score 0 04/23/2024 Comments No Sex and Gender Information Value Date Recorded Sex Assigned at Female 02/25/2022 10:25 AM EDT Legal Sex Female 10:25 AM EDT Gender Identity Female 02/25/2022 10:25 AM EDT Sexual Orientation Straight 01/21/2024 12 :16 PM EDT Last Filed Vital Signs Vital Sign Reading Time Taken Comments Blood Pressure 144/86 06/09/2024 4:07 PM EST Pulse 74 06/09/2024 4:07 PM EST Temperature 36.8 ??C (98.2 ??F) 06/09/2024 4:07 PM ES T Respiratory Rate 16 06/09/2024 4:07 PM EST Oxygen Saturation 98% 04/23/2024 10:14 AM EST Inhaled Oxygen Concentration - - Weight 90.4 kg (199 lb 6.4 oz) 06/09/2024 4:07 P M EST Height 154.9 cm (5' 1 ) 06/09/2024 4:07 PM EST Body Mass Index 37.68 06/09/2024 4:07 PM EST Plan of Treatment Upcoming Encounters Date Type Department Care Team (Late st Contact Info) Description 06/16/2024 9:30 AM EST Office Visit [facility] [address] [place], [place] [phone] Juana Mcclain NP [address] [place], [place] [phone] Health Maintenance Due Date Last Done Comments CT Colonography 1965 FIT DNA/Cologuard 1965 FIT 1965 FOBT 1965 HIV Screening 1965 Sigmoidoscopy 1965 Pneumococcal Vaccine: 50+ Years (1 of 2 - PCV) 10/07/1983 Zoster Vaccines (1 of 2) 2014 COVID-19 Vaccine ( season) 2023 05/10/2021, 08/19/2020, 07/22/2020 Influenza Vaccine (#1) 2023 , 03/30/2013, 01/24/2011, Additional history exists SDOH Screening 08/26/2024 08/27/2023 Alcohol/Substance Use Screening 03/03/2025 03/03/2024 Depression Screening 04/23/2025 04/23/2024, 04/23/20 Tobacco Screening 04/23/2025 04/23/2024 Mammogram 04/22/2026 04/22/2024, 03/31/2020 Lipid Panel 10/20/2028 10/21/2023, 0205/2022, 01/24/2021, Additional history exists DTaP/Tdap/Td Vaccines (2 - Td or Tdap) 12/15/2029 12/16/2019, 07/11/2006 Colonoscopy 08/15/2030 08/15/2020 Colorectal Cancer Screening 08/15/2030 RSV Patients and Patients Aged 60 years or older (1 - 1-dose 75+ series) 10/07/2039 Hepatitis B Vaccines Discontinued 12/17/2013, 06/29/2009, 06/01/2009 Hepatitis C Screening Completed 04/22/2024, 020 HIB Vaccines Aged Out No longer eligi ble based on patient's age to complete this topic HPV Vaccines Aged Out No longer eligi ble based on patient's age to complete this topic Hepatitis A Vaccines Aged Out No long er eligible based on patient's age to complete this topic IPV Vaccines Aged Out No longer eligi ble based on patient's age to complete this topic Meningococcal Vaccine Aged Out No emily eduarda eligible based on patient's age to complete this topic RSV under 20 months Aged Out No longe r eligible based on patient's age to complete this topic Rotavirus Vaccines Aged Out No longer eligible based on patient's age to complete this topic Procedures Procedure Name Priority Date/Time Associated Diagnosis Comments POCT URINALYSIS DIPSTICK Routine 025 4:17 PM EST Dysuria HEPATITIS C AB W/REFL TO HCV RNA, QN, PCR Routine 04/22/2024 1:07 PM EST Encounter for health-related screening TSH W/REFLEX TO FT4 Routine 04/22/2024 1 :07 PM EST Class 2 obesity COMPREHENSIVE METABOLIC PANEL Routine 04/22/2024 1:07 PM EST Class 2 obesity HEMOGLOBIN A1C Routine 04/22/2024 1:07 PM EST Class 2 obesity VITAMIN D,25-OH,TOTAL,IA Routine 024 1:07 PM EST Hypovitaminosis D BI MAMMOGRAM SCREEN W ROLANDO W IMPLANTS INCHOLAS Routine 04/22/2024 11:30 AM EST POCT RAPID COVID ANTIGEN Routine 024 7:21 PM EST Viral syndrome POCT INFLUENZA A (ID NOW RAPID MOLECULAR) Routine 04/14/2024 7:21 PM EST Viral syndrome POCT INFLUENZA B (ID NOW RAPID MOLECULAR) Routine 04/14/2024 7:21 PM EST Viral syndrome RESPIRATORY VIRAL PANEL PCR Routine 04/14/2024 7:15 PM EST Viral syndrome AMB REFERRAL TO GASTROENTEROLOGY Routine 03/31/2024 Encounter for colorectal cancer screening LIPID PANEL, STANDARD Routine 10/21/2023 9:47 AM EDT Routine general medical examination at a [facility] care facility HM COLONOSCOPY Routine 08/15/2020 3:59 PM EDT from Last 3 Months or Most Recently Relevant to Health Maintenance Results * POCT urinalysis dipstick manually resulted (06/09/2024 4:17 PM EST) Color, UA Yellow Clarity, UA Clear Glucose, UA Negative Bilirubin, UA Negative Ketones, UA Negative Spec Grav, UA 1.010 Blood, UA Negative Negative, None Detected pH, UA 6.0 Protein, UA Negative Urobilinogen, UA 0.2 Leukocytes, UA Trace Negative, Rare, Trace Nitrite, UA Negative Negative, None Detected Urine 06/09/2024 4:17 PM EST us Francis Name POINT OF CARE TEST ENTER/EDIT OR DERABLES Final Result * (ABNORMAL) Vitamin D, 25-Hydroxy, Total, Immunoassay (04/22/2024 1:07 PM EST) Vitamin D 25-OH Total 20.0(L) >30 ng/mL [facility] Comment:Health Based Referen ce Values*< 20 ng/mL [id number] ng/mL Insufficient> 30 ng/mL Sufficient*Marika HDZ. N Engl J Med. 2007;357:266-280Care must be taken in interpreting Vitamin D results fromdifferent laboratories and methodologies. Published datademonstrated that results from patients undergoinghemodialysis may show a negative bias when tested withvarious automated 25-OH vitamin D assays when compared toLC-MS/MS.When testing samples from patients whose predominant form ofVitamin D is Vitamin D2, such as patients receiving VitaminD2 supplementation, results that are subtherapeutic shouldbe confirmed with another method such as LC-MS/MS. Blood Venous blood specimen / Unknown 04/22/2024 1:07 PM EST 04/22/2024 1:[address] [facility] GAMBLING SUPERVISOR LAB BLOOD ORDERABLES Final Resu lt Performing Organization Address [facility] Co de Phone Number [facility] [address] [place] [phone] * TSH W/Reflex to FT4 (04/22/2024 1:07 PM EST) TSH reflex Free T4 2.15 0.32 - 4.0 uIU/mL [facility] Blood Venous blood specimen / Unknown 04/22/2024 1:07 PM EST 04/22/2024 1:07 PM EST [facility] LAB BLOOD ORDERABLES Final Resu lt Performing Organization Address [facility] Phone Number [facility] [address] [place] [phone] * Hepatitis C Antibody with Reflex to HCV, RNA, Quantitative, Real-Time PCR (04/22/2024 1:07 PM EST) Hepatitis C Antibody Nonreactive Nonreactive [facility] Comment:Antibodies to HCV no t detected; does not exclude early acuteHCV infection. Blood Venous blood specimen / Unknown 04/22/2024 1:07 PM EST 04/22/2024 1:07 PM EST [facility] LAB BLOOD ORDERABLES Final Resu lt Performing Organization Address [facility] Co de Phone Number [facility] [address] [place] [phone] * Hemoglobin A1c (04/22/2024 1:07 PM EST) Hemoglobin A1c 5.2 <6.0 % [facility] Comment:Hemoglobin A1C Refer ence Range Adults: 4.8 - 6.0 % Non diabetic: < 6.0 % Goal: < 7.0 %Additional Action Suggested: > 8.0 %Note: Hemoglobin A1c results are invalid for patients with abnormal amounts of HbF. Blood transfusions may impact the HbA1c concentration in the patient sample. Estimated Average Glucose 103 mg/dL [facility] Comment:eAG = Estimated ave rage glucose which is %A1C expressed asaverage glucose, using the formula of the S2K-DlaykdlKlccjcb Glucose study (ADAG), Diabetes Care, Vol.31,#8,Nov. 2007 Blood Venous blood specimen / Unknown 04/22/2024 1:07 PM EST 04/22/2024 1:07 PM EST Juana Mcclain GAMBLING SUPERVISOR LAB BLOOD ORDERABLES Final Resu lt [facility] [address] [place] [phone] * (ABNORMAL) Comprehensive Metabolic Panel (04/22/2024 1:07 PM EST) Sodium 141 135 - 145 mmol/L [facility] Potassium 4.1 3.3 - 5.1 mmol/L [facility] Chloride 110(H) 96 - 108 mmol/L [facility] Carbon Dioxide 27 22 - 29 mmol/L [facility] Anion Gap 8(L) 12 - 20 [facility] Urea Nitrogen (BUN) 14 9 - 16 mg/dL [facility] Creatinine, Serum 0.82 0.5 - 1.4 mg/dL [facility] Estimated Glomerular Filt Rate >60 [facility] Comment:Chronic Kidney Disea se: Estimated GFR < 60 mL/min/1.97w6Odvtrw Kidney Disease: Estimated GFR < 15 mL/min/1.73m2 Glucose 94 60 - 115 mg/dL [facility] Calcium 9.4 8.4 - 10.2 mg/dL [facility] Bilirubin, Total 0.4 0.0 - 1.0 mg/dL [facility] Aspartate Amino Transferase 20 5 - 31 U/L [facility] Alanine Aminotransferase 15 0 - 31 U/L [facility] Total Protein 7.6 6.5 - 8.0 g/dL [facility] Albumin Level 4.2 3.5 - 5.0 g/dL [facility] Alkaline Phosphatase 70 39 - 117 U/L [facility] Blood Venous blood specimen / Unknown 04/22/2024 1:07 PM EST 04/22/2024 1:07 PM EST Juana Mcclain GAMBLING SUPERVISOR LAB BLOOD ORDERABLES Final Resu lt [facility] [address] [facility] [place] [phone] * BI Mammogram Screen w/ Rolando w/ Implants Nicholas (04/22/2024 11:30 AM EST) Anatomical Region Laterality Modality Mammography 04/22/2024 11:3 0 AM EST Narrative 05/04/2024 4:49 PM EST ? [facility] ? [address] ?[place] [address] ? Mammography Report ? Signed ? Patient: Quirino Tamayo,Salustina ?MR#: ?? [id number] ? : 1965 ?Acct:[id number] ? Age/Sex: 58 / F ?ADM Date: 12/26/24 ? Loc: HO.MAMMO ? Attending Dr: Juana Appram ? Ordering Physician: Appram,Juana ?Results: 2Benign Fi ?? ndings ? Date of Service: 04/22/24 ?Follow Up: 1 Year From Orig ?? inal Mammogram ? Procedure(s): MM tomosynthesis screen imp BI ?? Accession Number(s): [id number] ? cc: Juana Mcclain; Jalyn Washington GAMBLING SUPERVISOR ? EXAMINATION: ?? MM SCREENING DIGITAL BREAST TOMOSYNTHESIS, BILATERAL ? CLINICAL INFORMATION: ? Screening. Asymptomatic. ? COMPARISON: ?? Mammography: Comparison is made with relevant avialable priors. ? TECHNIQUE: ?? Digital mammography is performed in craniocaudal and mediolateral ?? oblique views along with computer-aided detection (CAD). Digital breast ?? tomosynthesis is performed in implant-displaced craniocaudal and ?? implant-displaced mediolateral oblique views along with computer-aided ?? detection (CAD). ? FINDINGS: ?? There are scattered areas of fibroglandular density (ACR BI-RADS breast ?? composition Category b). ?? Bilateral retropectoral saline implants are stable appearing. ?? There are no significant masses, abnormal calcifications, or other ?? abnormalities. ? MM/MM tomosynthesis screen imp BI ?? IMPRESSION: ?? There are no significant changes from prior study. ? ASSESSMENT: ? BI-RADS BI-RADS 2 - Benign Findings ? RECOMMENDATION: ?? Routine annual mammography screening. ? 1 year F/U ? This patient's information was entered into a reminder system with a ?? target due date for their next mammogram. ? Electronically signed by: ??Lelo Alvarez DO ??05/04/2024 04:46 PM EST ?? RP ? Dictated By: ?Lelo Alvarez DO ? Signed By: ?<Electronically signed by Lelo Alvarez, DO in OV> ? 05/04/24 1646 ? DD/ 1130 ? TD/TT: 04/22/24 1158 ? Curbstone Setter: ? Procedure Note Donotjonathaninterpreter, Image - 05/04/2024 [facility] [address] [place], [place] [address] Mammography Report Signed Patient: Иван MondragonMR#: [id number] : 1965Acct:[id number] Age/Sex: 58 / FADM Date: 04/22/24 Loc: HO.MAMMO Attending Dr: Juana Mcclain Ordering Physician: Juana McclainResults: 2Bmina allison Date of Service: 04/22/24Follow Up: 1 Year From Orig inal Mammogram Procedure(s): MM tomosynthesis screen imp BI Accession Number(s): [id number] cc: Juana Mcclain; Jalyn Washington GAMBLING SUPERVISOR EXAMINATION: MM SCREENING DIGITAL BREAST TOMOSYNTHESIS, BILATERAL CLINICAL INFORMATION: Screening. Asymptomatic. COMPARISON: Mammography: Comparison is made with relevant avialable priors. TECHNIQUE: Digital mammography is performed in craniocaudal and mediolateral oblique views along with computer-aided detection (CAD). Digital breast tomosynthesis is performed in implant-displaced craniocaudal and implant-displaced mediolateral oblique views along with computer-aided detection (CAD). FINDINGS: There are scattered areas of fibroglandular density (ACR BI-RADS breast composition Category b). Bilateral retropectoral saline implants are stable appearing. There are no significant masses, abnormal calcifications, or other abnormalities. MM/MM tomosynthesis screen imp BI IMPRESSION: There are no significant changes from prior study. ASSESSMENT: BI-RADS BI-RADS 2 - Benign Findings RECOMMENDATION: Routine annual mammography screening. 1 year F/U This patient's information was entered into a reminder system with a target due date for their next mammogram. Electronically signed by: Lelo Alvarez DO 05/04/2024 04:46 PM EST Dictated By: Lelo Alvarez DO Signed By: <Electronically signed by Lelo Alvarez DO in OV> 05/04/24 1646 DD/ 1130 TD/TT: 04/22/24 1158 Curbstone Setter: Juana Mcclain GAMBLING SUPERVISOR IMG BI PROCEDURES Final Result * POCT Rapid Influenza B MEDINA ID NOW (04/14/2024 7:21 PM EST) [facility] Influenza B Negative Negative, Indeterminate [facility] Swab 04/14/2024 7:21 PM EST Lign Phalen ELECTRONIC WIRER POINT OF CARE TEST ENTER/EDIT ORDERABLES Final Result Performing Organization Address [facility]/ZIP Co de Phone Number [facility] [address] [place] [phone] * POCT Rapid Influenza A MEDINA ID NOW (04/14/2024 7:21 PM EST) [facility] Influenza A Negative Negative, Indeterminate [facility] Swab 04/14/2024 7:21 PM EST Ling Phalen ELECTRONIC WIRER POINT OF CARE TEST ENTER/EDIT ORDERABLES Final Result Performing Organization Address [facility] Co de Phone Number [facility] [address] [place] [phone] * POCT Rapid Covid-19 BinaxNOW (04/14/2024 7:21 PM EST) [facility] Rapid COVID Ag Negative Swab 04/14/2024 7:21 PM EST Ling Phalen ELECTRONIC WIRER POINT OF CARE TEST ENTER/EDIT ORDERABLES Final Result * Respiratory Viral Panel PCR (04/14/2024 7:15 PM EST) [facility] Adenovirus PCR Not Detected Not Detect. [facility] Bordetella pertussis PCR Not Detected Not Detect. [facility] Comment:Interpret results wi th caution. If B. pertussis isspecifically suspected, additional testing using analternate method is recommended. Bordetella parapertussis PCR Not Detected Not Detect. [facility] Chlamydia pneumoniae PCR Not Detected Not Detect. [facility] Coronavirus 229E PCR Not Detected Not Detect. [facility] Coronavirus HKU1 PCR Not Detected Not Detect. [facility] Coronavirus NL63 PCR Not Detected Not Detect. [facility] Coronavirus OC43 PCR Not Detected Not Detect. [facility] SARS-CoV-2 PCR Not Detected Not Detect. [facility] Comment:SARS-CoV-2 not detec jessica by real-time RT-PCR.Note: If clinical suspicion for Sars-CoV-2 is high, continueto maintain precautions and consider repeat testing.Test results should be interpreted in the context ofclinical findings and other laboratory data.Rare polymorphisms exist that could lead to false-negativeor false-positive results. If results do not match theclinical findings, additional testing should be considered.Results reported to [facility].This test has been authorized by the FDA under the EmergencyUse Authorization (EUA) for use by authorized laboratories. Influenza A PCR Not Detected Not Detect. [facility] Influenza B PCR Not Detected Not Detect. [facility] Human metapneumovirus PCR Not Detected Not Detect. [facility] Rhino/Enterovirus PCR Not Detected Not Detect. [facility] Mycoplasma pneumoniae PCR Not Detected Not Detect. [facility] Parainfluenza 1 PCR Not Detected Not Detect. [facility] Parainfluenza 2 PCR Not Detected Not Detect. [facility] Parainfluenza 3 PCR Not Detected Not Detect. [facility] Parainfluenza 4 PCR Not Detected Not Detect. [facility] RSV PCR Not Detected Not Detect. [facility] Resp Panel NA Note See Note H [facility] Comment:All results must be correlated with clinical findings.Negative results should not be used as the sole basis fordiagnosis, treatment, or other management decisions.A negative result does not exclude the possibility of viralor bacterial infection. Negative results may occur from thepresence of sequence variants in the region targeted by theassay, the presence of inhibitors, an infection caused by anorganism not detected by the panel, or lower respiratorytract infections that are not detected by a nasopharyngealswab specimen. Test results may also be affected byconcurrent antiviral/antibacterial therapy or levels oforganism in the specimen that are below the limit ofdetection for this test.This assay is performed by Multiplexed PCR, utilizing [employer]. Swab 04/14/2024 7:15 PM EST 04/15/2024 1:33 PM EST Ling Cruz [employer] LAB BLOOD ORDERABLES Final Res ult [facility] [address] [place] [address] [phone] * Referral to Gastroenterology (03/31/2024) Juana Mcclain GAMBLING SUPERVISOR OUTPATIENT REFERRAL ORDERABLES Final Result * (ABNORMAL) Lipid Panel, Standard (10/21/2023 9:47 AM EDT) Triglycerides 47 <150 mg/dL [facility] Comment:Desirable Triglyceri de: less than 150 mg/dLBorderline High Triglyceride 150-199 mg/dLHigh Triglyceride: 200-499 mg/dLVery High Triglyceride: greater than or equal to 5OO mg/dL Cholesterol 164 <200 mg/dL [facility] Comment:Desirable Cholestero l: less than 200 mg/dLBorderline High Cholesterol: 200-239 mg/dLHigh Cholesterol: greater than 239 mg/dL LDL Cholesterol Calculated 100(H) <100 mg/dL [facility] Comment:Desirable LDL: less than 100 mg/dLNear Optimal/Above Optimal LDL: 110- 129 mg/dLBorderline High LDL: 130-159 mg/dLHigh LDL: 160-189 mg/dLVery High LDL: greater than or equal to 190 mg/dL HDL Cholesterol 55 >40 mg/dL [facility] Comment:Desirable HDL: great er than 40 mg/dL Note: This HDL assay may give artificially low results in patients with liver disease. Blood Venous blood specimen / Unknown 10/21/2023 9:47 AM EDT 10/21/2023 11:38 AM EDT Jalyn Washington [facility] LAB BLOOD ORDERABLES Final Resu lt [facility] [address] [place] [address] [phone] * Colonoscopy (08/15/2020 3:59 PM EDT) Colonoscopy Normal Normal Narrative Kirstin Carranza - 08/15/2020 3:59 PM EDT Recommended 10 year follow up ; consider FIT testing in 5 and 7 years ( [facility] ) Historical Provider HEALTH MAINTENANCE Edited Result - Final from Last 3 Months or Most Recently Relevant to Health Maintenance Insurance [place] [id number] Care Teams Back Roller Relationship Specialty Start Date End Date Juana Mcclain NP [address] [place] [id number] PCP - General Family Medicine 12/30/23
--- OUTSIDE RECORDS SUMMARY | 2024-06-10 12:00 | XMS_ITS | Encounter Summary ---
Author Organization [employer] Address [address] [facility] [address] [place] [address] Care Team Providers Care Analog Circuit Designer Name Role Phone Padmini Jalyn GALEP Primary Care Provider [phone] Juana Mcclain NP Primary Care Provider [phone] Encounter Details Date Type Department Care Team ([facility] st Contact Info) Description 04/23/2023 Orders Only [facility] MED & PEDS [address] [place] [address] Flaca Chowdhury LPN Social History Tobacco Use Types Packs/Day Years [...] Description 06/16/2024 9:30 AM EST Office Visit [facility] MEDICINE [address] [place] [address] Juana Mcclain NP [address] [place] [address] documented as of this encounter Visit Diagnoses Not on filedocumented in this encounter Additional Health Concerns Assessment Noted Time PHQ-9 Depression Total Score: 5 05/24/19 23 10:19 AM EST documented as of this encounter Care Teams Analog Circuit Designer Relationship Specialty Start Date End Date Jalyn Washington FNP [address] [place] [address] PCP - General Family Medicine 05/17/22 12/29/23 Juana Mcclain NP [address] [place] [address] PCP - General Family Medicine 12/30/23 documented as of this encounter
--- OUTSIDE RECORDS SUMMARY | 2024-06-10 12:00 | XMS_ITS | Encounter Summary ---
Author Organization [employer] Address [address] [place] [address] [address] [place] [address] Care Team Providers Care Fourdrinier Wire Weaver Name Role Phone Padmini Jalyn GALEP Primary Care Provider [phone] Juana Mcclain NP Primary Care Provider [phone] Reason for Visit * Reason Onset Date Comments Med Refill 02/17/2023 Encounter Details Date Type Department Care Team (Late st Contact Info) Description 02/17/2023 Refill [facility] MEDICINE [address] [place] [address] Michelle Elliott MD [address] [place] [address] Social History Tobacco Use Types Packs/Day Years [...] 9:30 AM EST Office Visit [facility] MEDICINE [address] [place] [address] Juana Mcclain NP [address] [place] [address] documented as of this encounter Visit Diagnoses Not on filedocumented in this encounter Additional Health Concerns Assessment Noted Time PHQ-9 Depression Total Score: 5 05/24/19 23 10:19 AM EST documented as of this encounter Care Teams Fourdrinier Wire Weaver Relationship Specialty Start Date End Date Jalyn Washington FNP [address] [place] [phone] PCP - General Family Medicine 05/17/22 12/29/23 Juana Mcclain NP [address] [place] [address] PCP - General Family Medicine 12/30/23 documented as of this encounter
--- OUTSIDE RECORDS SUMMARY | 2024-06-10 12:00 | XMS_ITS | Encounter Summary ---
Author Organization [employer] Address [address] [place] [address] [address] [place] [address] Care Team Providers Care Website Admin Name Role Phone Juana Mcclain NP Primary Care Provider [phone] Reason for Visit * Reason Onset Date Comments Med Refill 01/21/2024 Encounter Details Date Type Department Care Team ([facility] st Contact Info) Description 01/21/2024 Refill [facility] MEDICINE [address] [place] [address] Jalyn Washington FNP [address] [place] [address] Major depressive disorder in full remission, unspecified whether recurrent (CMS/HCC) Social History Tobacco Use Types Packs/Day Years [...] 9:30 AM EST Office Visit [facility] MEDICINE [address] [place] [address] Juana Mcclain NP [address] [place] [address] documented as of this encounter Visit Diagnoses Diagnosis Major depressive disorder in full remission, unspecified whether recurrent (CMS/HCC) documented in this encounter Additional Health Concerns Assessment Noted Time PHQ-9 Depression Total Score: 8 08/27/19 24 4:23 PM EDT documented as of this encounter Care Teams Website Admin Relationship Specialty Start Date End Date Juana Mcclain NP [address] [place] [address] PCP - General Family Medicine 12/30/23 documented as of this encounter
--- OUTSIDE RECORDS SUMMARY | 2024-06-10 12:00 | XMS_ITS | Data Portability ---
Author Organization [facility], , [facility] Address [address] [place] [address] Care Team Providers Care Piano Regulator Inspector Name Role Phone ARYAN THOMAS Primary Care Provide r MOMO CHATTERJEE Primary Care Provider [phone] Assessment No assessment recorded. Plan of Treatment Reminders Order Date Submit Date Provider Last Modified By Organization Details Last Modified Time Details Appointments None recorded. Lab rapid strep A [address], [address] [place] [address], [address], 4 12:52:50 urinalysi s, dipstick [address], [address] [place] [address], [address], 4 14:15:08 mmr immunity panel 2013 [facility] [address] [place] [address], [address], 4 11:50:49 varicella , immune status 2013 014 [facility], [address] [place] [address], [address], 4 21:12:28 Referral None recorded. Procedures None recorded. Surgeries None recorded. Imaging ultrasoun d, pelvic transvagi nal - L adnexal tendernes s. SP hyst for fibroids. Has ovaries 2013 014 [facility] (Imaging), [address], [place], [address], 4 11:24:19 Medication Orders lorazepam 0.5 mg tablet 2013 014 [email or web address] Not available 4 13:29:29 Estrace 0.01% (0.1 mg/gram) vaginal cream 2013 014 INTERFACE Not available 4 14:15:12 Vagifem 10 mcg vaginal tablet 2013 014 ashelkey Not available 4 10:08:10 ProAir HFA 90 mcg/actua tion aerosol inhaler 2013 014 yperry Not available 4 10:31:23 azithromy alexys 250 mg tablet 2013 014 yperry Not available 4 10:31:24 loratadin e 10 mg tablet 2013 014 yperry Not available 4 10:31:23 triamcino lone acetonide 0.1 % topical ointment 2013 014 yperry Not available 4 10:31:24 Patient TargetsNo targets recorded. Patient Instructions Encounter Date Encounter Id Patient Instructions Last Modified By Organization Details Last Modified Time 12/10/2013 [id number] Try Vagifem for atrophic vaginitis and dyspareunia. Repeat US in 3 months.? ? ? Titers. She will hold onto school form and await results. Not available 12/12/2013 12:21:35 01/14/2014 [id number] FOR FLONASE 2 PUFFS IN EACH SIDE TWICE A DAY FOR A WEEK, THEN ONCE A DAY.? ? ? TAKE LORATIDINE EVERY MORNING yperry Not available 01/14/2014 10:29:21 Reason for Referral None Reported. Results Created Date Observation Date Name Description Value Unit Range Abnormal Flag Note LastModifiedBy Organization Detail LastModifiedTime 11/24/19 14 11/23/2013 urina lysis , dipst ick Glucose Negati ve Not Available [address], [place], [address], 11/23/2013 13:50:31 11/24/19 14 11/23/2013 urina lysis , dipst ick Bilirubin Negati ve Not Available [address], [address], 11/23/2013 13:50:31 11/24/19 14 11/23/2013 urina lysis , dipst ick Ketone Negati ve Not Available [address], [address], 11/23/2013 13:50:31 11/24/19 14 11/23/2013 urina lysis , dipst ick Specific [place] 1.010 Not Available [address], [address], 11/23/2013 13:50:31 11/24/19 14 11/23/2013 urina lysis , dipst ick Blood Negati ve Not Available [address], [address], 11/23/2013 13:50:31 11/24/19 14 11/23/2013 urina lysis , dipst ick pH 6.0 Not Available [address], [address], 11/23/2013 13:50:31 11/24/19 14 11/23/2013 urina lysis , dipst ick Protein Negati ve Not Available [address], [address], 11/23/2013 13:50:31 11/24/19 14 11/23/2013 urina lysis , dipst ick Urobilinogen .2 Not Available [address], [address], 11/23/2013 13:50:31 11/24/19 14 11/23/2013 urina lysis , dipst ick Nitrite negati ve Not Available [address], [address], 11/23/2013 13:50:31 11/24/19 14 11/23/2013 urina lysis , dipst ick Leukocytes Negati ve Not Available [address] [place], [address], 11/23/2013 13:50:31 10/16/19 14 10/15/2013 rapid strep A Result negati ve Not Available [address], [address], 10/15/2013 12:43:36 10/16/19 14 10/18/2013 cultu re, throa t culture, throat cultu re, throa t micro numbe r: [id number] test statu s: final speci men sourc e: not given speci men quali ty: adequ ate resul t: no oroph aryng eal patho gens recov ered. Not Available [facility] [address], [address], 10/19/2013 12:05:39 12/11/19 14 12/13/2013 varic vielka, immun e statu s varicella zoster virus Ab (immunity scr),acif (s) >=1:4 abnormal REFER ENCE RANGE : <1:4 INTER PRETI VE CRITE LAMAR: <1:4 Antib hugo Not Detec jessica - evide nce for susce ptibi lity to VZV infec tion. > or = 1:4 Antib hugo Detec jessica - evide nce for immun ity again st VZV infec tion. A posit vance titer (grea ter than or equal to 1:4) indic ates a histo ry of VZV infec tion or vacci natio n. In infec jessica indiv idual s, this test is usual ly posit vance withi n 2 days after the onset of rash and is there after posit vance for life. The absen ce of detec table antib hugo may indic ate susce ptibi lity to VZV infec tion. This assay was devel oped and its perfo rmanc e beverly cteri stics have been deter mined by [facility]. Perfo rmanc e beverly cteri stics refer to the mary ann tical perfo rmanc e of the test. Not Available [facility] [address], [address], 12/13/2013 21:12:28 12/11/19 14 12/13/2013 mumps , igg mumps virus antibody (IgG) 3.80 index normal Index Inter preta tion < or = 0.90 Negat vance 0.91- 1.09 Equiv ocal > or = 1.10 Posit vance A posit vance resul t indic ates that the patie nt has antib hugo to mumps virus . It does not diffe renti ate betwe en an activ e or past infec tion. The clini rissa diagn osis must be inter prete d in conju nctio n with the clini rissa signs and sympt oms of the patie nt. Not Available [facility] [address], [address], 12/13/2013 21:12:28 12/11/19 14 12/13/2013 measl es igg Ab (rube porfirio) measles antibody (IgG) >5.00 index normal Index Expla natio n of Test Resul ts ----- ---- ----- ----- ----- ----- ----- -- < or = 0.90 Negat vance - No Rubeo la (Karlos les) IgG Antib hugo detec jessica 0.91 - 1.09 Equiv ocal > or = 1.10 Posit vance - Rubeo la (Karlos les) IgG Antib hugo detec jessica Posit vance resul ts sugge st recen t or previ ous infec tion with Measl es (Rube porfirio) virus and imply immun ity. Patie nts exhib iting equiv ocal resul ts shoul d be retes jessica in one month , if clini loly indic ated. Not Available [facility] [address], [place], [address], 12/13/2013 21:12:29 12/11/19 14 12/16/2013 rubel la immun ity rubella * POSITI VE * positi ve (immun e) Not Available [facility] [address] [facility], [place], [address], 12/16/2013 11:06:54 01/21/20 14 01/24/2014 CT + NG DNA, PCR, unspe cifie d speci men source: CERVIX Not Available [facility] (Outpatient) [address] [place] [address], [address], 01/24/2014 09:06:34 01/21/20 14 01/24/2014 CT + NG DNA, PCR, unspe cifie d speci men chlamydia tracho A Negati ve negati ve Not Available [facility] (Outpatient) [address] [place] [address], [address], 01/24/2014 09:06:34 01/21/20 14 01/24/2014 CT + NG DNA, PCR, unspe cifie d speci men source: CERVIX Not Available [facility] (Outpatient) [address] [place] [address], [address], 01/24/2014 09:06:34 01/21/20 14 01/24/2014 CT + NG DNA, PCR, unspe cifie d speci men neisseria gonorrhoeae A Negati ve negati ve Test Perfo rmed by: [facility] Labor atori [facility] [address] [facility], [place] [address] Labor atory Dire tor: Michelle joiner, Ph.D. Not Available [facility] (Outpatient) [address] [place] [address], [address], 01/24/2014 09:06:34 11/26/19 14 11/25/2013 ultra sound , pelvi c trans vagin al OBSERV ATION: PELVIC ULTRAS OUND Histor y: Right lower quadra nt abdomi nal pain status post suprac ervica l hyster ectomy 5-6 years ago. Proced ure: Real-t kimberly and color Dopple r pelvic and transv aginal ultras ound. Compar sarah: None. FINDIN GS: The uterus is surgic ally absent . Multip le anecho ic naboth osiel cysts are seen in the cervix . There is a single 8 x 8 x 8 mm comple x cervic al naboth osiel cyst with an recruiting internship al nodula r echoge fred compon ent. Transv aginal sonogr aphic examin ation was perfor med for better evalua tion of the adnexa . Right ovary measur es 3.2 x 2.1 x 2.3 cm. Left ovary measur es 2.0 x 2.2 x 1.7 cm. Both ovarie s appear normal . No adnexa l mass seen. No free fluid was demons trated . IMPRES OANH: Status post hyster ectomy . Comple x cystic lesion in the cervix , which could repres ent a comple x naboth osiel cyst. Neopla sm would be less likely . Recomm end follow up pelvic ultras ound in 3 months . Enhanc ed pelvic MRI could also be consid ered. Electr onical ly signed Richardson zamoran: Fredy Aguiar MD [address] (Imaging) [address] [facility], [place], [address], 12/11/2013 19:30:58 02/07/20 14 01/21/2014 ultra sound , pelvi s, soft tissu e No observ ation record ed. [address] [facility] [address] [place], [address], 02/07/2014 09:42:23 03/09/20 14 03/09/2014 ultra sound , pelvi c trans vagin al OBSERV ATION: Pelvic ultras ound: Histor y: Follow up comple x naboth osiel cyst report ed on November 25, 2013 pelvic ultras ound. Study was perfor med transv aginal techni que and compar ed with prior study. The previo usly noted comple x naboth osiel cysts has resolv ed. Uterus is surgic ally absent . No adnexa l mass lesion or free intrap elvic fluid is seen. Both ovarie s appear normal . Impres oanh: Normal pelvic ultras ound status post hyster ectomy . Previo usly noted comple x naboth osiel cyst has resolv ed. Electr onical ly signed Richardson cartagena: Robert Manuel MD [facility] (Imaging) [address] [place] [address] , [place], [address], 03/11/2014 11:28:00 Result Notes None recorded. Problems Name Problem SNOMED Code Status Onset Date Resolution Date Notes Provider Name and Address Organization Details Recorded Time Eczema 78407450 Active Valery Mari MD [address] [place] [address], , [facility] 4 10:31:23 Acute sinusitis 53472946 Active Momo Chatterjee NP [address] [place] [address], , [facility] 4 09:44:44 Asthma 799134501 Active Valery Mari MD [address] [place] [address], , [facility] 4 10:31:23 Backache 677766483 Active Momo Chatterjee NP [address] [place] [address], , [facility] 4 09:44:44 Vaginitis 16258785 Jimmy Chatterjee NP [address] [place] [address], , [facility] 4 09:44:44 Colitis, enteritis and gastroente ritis presumed infectious 334357323 Jimmy Chatterjee NP [address] [place] [address], , [facility] 4 08:24:10 Atrophic vaginitis 27578007 Jimmy Chatterjee NP [address] [place] [address], , [facility] 4 12:21:35 Pain in pelvis 88785098 Jimmy Chatterjee NP [address] [place] [address], , [facility] 4 10:18:27 Nabothian follicles on cervix Active Momo Chatterjee NP [address] [place] [address], , [facility] 4 12:21:35 Headache 82627618 Active 2007 Not Available [facility] 3 03:14:06 Colitis, enteritis and gastroente ritis presumed infectious 493546473 Completed 200603/17/2013 Not Available [facility] 3 02:03:04 Viral enteritis of intestine 25452329 Completed 200703/17/2013 Not Available [facility] 3 02:04:17 Gastroesop hageal reflux disease 354175150 Active 2007 Momo Chatterjee NP [address] [place] [address], [phone] , [facility] 4 09:44:44 Cough 50893354 Completed 03/17/2013 Not Available [facility] 3 02:01:10 Right lower quadrant pain 921201652 Completed 200703/17/2013 Not Available [facility] 3 02:03:25 Diarrhea 78315341 Completed 03/17/2013 Not Available [facility] 3 02:02:16 Sleep disorder 78129132 Active Not Available [facility] 3 03:14:06 Acute pharyngiti s 121586592 Completed 200703/17/2013 Not Available [facility] 3 02:01:18 Influenza 9954682 Completed 03/17/2013 Not Available [facility] 3 02:02:21 Insomnia 064819295 Active Momo Chatterjee NP [address] [place] [address], [phone] , [facility] 4 12:52:49 Irritable bowel syndrome 73075382 Active Not Available [facility] 3 03:14:06 Sciatica 54927478 Active Momo Chatterjee NP [address] [place] [address], [phone] , [facility] 4 09:44:44 Intestinal infectious disease 682639153 Completed 200703/17/2013 Not Available [facility] 3 02:04:16 Acute sinusitis 22589914 Completed 03/17/2013 Not Available [facility] 3 02:02:21 Contact dermatitis due to plants, except food Completed 200703/17/2013 Not Available [facility] 3 02:02:50 Acute upper respirator y infection 20317249 Completed 03/17/2013 Not Available [facility] 3 02:02:17 Common cold 41624310 Completed 200703/17/2013 Not Available [facility] 3 02:00:30 Abdominal pain 03188227 Completed 03/17/2013 Not Available [facility] 3 02:01:23 On examinatio n - a rash Completed 03/17/2013 Not Available [facility] 3 02:00:50 Allergic rhinitis caused by pollen 54878483 Active Valery Mari MD [address] [place] [address], [phone] [place] [address] 4 10:31:23 Epigastric pain 93336902 Completed 03/17/2013 Not Available [facility] 3 02:03:28 Anemia 162328637 Active 2007 Not Available [facility] 3 03:14:06 Conjunctiv itis 2194212 Completed 03/17/2013 Not Available [facility] 3 02:03:08 Low back pain 269722146 Active Not Available [facility] 3 03:14:06 Streptococ rissa sore throat 67521156 Completed 03/17/2013 Not Available [facility] 3 02:02:03 Diverticul osis of colon without diverticul itis 207160071 Active 2007 Not Available [facility] 3 03:14:06 Hemorrhoid s 50456087 Active Not Available [facility] 3 03:14:06 Problem Notes None recorded. Procedures Surgical History Date Name Laterality Status Provider Name and Address Organization Details Recorded Time 9 Vision Screening completed Mary Clark CMA(AAMA) [facility] 07/13/2008 15:55:57 Imaging Results Imaging Date Name Status LastModified by Organization Details LastModified Time 11/25/2013 ultrasound, pelvic transvaginal completed [address] (Imaging) [address], [place], [address], 12/11/2013 19:30:58 01/21/2014 ultrasound, pelvis, soft tissue completed [address] [facility] [address], [place], [address], 02/07/2014 09:42:23 03/09/2014 [facility] [address] [place], [address], 03/11/2014 11:28:00 Procedure Notes None recorded. Medical Equipment None Reported. Allergies Allergen ID Allergen Name Allergen Category Reaction Reaction Severity Criticality Documentation Date Start Date Code Code System Note Provider Name and Address Organization Details Recorded Time Product containin g penicilli n and antibioti c (product) medicatio n Not available Not available Not available 04/07/2009 09969 05 SNOMED Not Available [facility] 1 06:05:20 [address] amoxicill in medicatio n Not available Not available Not available 05/02/2009 723 RxNorm Not Available [facility] 1 06:05:20 [address] metronida zole medicatio n Not available Not available Not available 06/29/2009 6922 RxNorm sever e heada princess Not Available [facility] 1 06:05:20 6067 aspirin medicatio n nausea vomiting Not available Not available Not available 07/12/2008 1191 RxNorm Not Available [facility] 1 06:05:20 6068 acetamino phen / oxycodone medicatio n other mild Not available 07/12/2008 03704 3 RxNorm night calvin ..saw Aron k Angle s Not Available [facility] 1 06:05:20 6069 codeine medicatio n itching Not available Not available 07/12/2008 2670 RxNorm #3 Not Available [facility] 1 06:05:20 Medications Name Sig Start Date Stop Date Status Note LastModified by Organization Details LastModified Time Prescript ion - Prior Authoriza tion Request active Omeprazo le Not Available Not Available Not Available tetracycl ine 500 mg capsule Take 1 capsule twice a day by oral route for 14 days. 06/12 completed Not Available Not Available Not Available cyclobenz aprine 10 mg tablet Take 1 tablet as needed by oral route at bedtime. 2012 active Not Available Not Available Not Avai lable azithromy alexys 250 mg tablet TAKE 2 TABLETS (500 MG) BY ORAL ROUTE ONCE DAILY FOR 1 DAY THEN 1 TABLET (250 MG) BY ORAL ROUTE ONCE DAILY FOR 4 DAYS 2013 active Not Available Not Available Not Avai lable ibuprofen 800 mg tablet Take 1 tablet twice a day by oral route with meals for 15 days. 08/11 completed Not Available Not Available Not Available Tubersol 5 tub. unit/0.1 mL intraderm al injection solution Take 1 mL by intrader mal route. active Not Available Not Available No t Available Phenergan 25 mg tablet Take 1 tablet 3 times a day by oral route as needed. 2008 active Not Available Not Available Not Avai lable Zantac 300 mg tablet Take 1 tablet every day by oral route for 30 days. 01/30 completed Not Available Not Available Not Available Diflucan 150 mg tablet Take 1 tablet every day by oral route for 1 day. 07/28 completed Not Available Not Available Not Available Flonase 50 mcg/actua tion nasal spray,edenilson pension Inhale 2 sprays in each nostril by intranas al route once daily 2013 active Not Available Not Available Not Avai lable meclizine 12.5 mg tablet Take 1 or 2 tablets by oral route 3 times per day as needed 2009 active Not Available Not Available Not Avai lable Mycelex 10 mg sofie Take 1 tablet 5 times a day by oral route for 5 days. 06/13 completed Not Available Not Available Not Available metronida zole 500 mg tablet Take 1 tablet every 8 hours by oral route for 14 days. 07/11 completed Not Available Not Available Not Available triamcino lone acetonide 0.1 % topical cream Apply a thin film to the affected skin areas by topical route 2 - 4 timesper day 2012 active Not Available Not Available Not Avai lable vancomyci n 125 mg capsule Take 1 capsule every 6 hours by oral route for 7 days. 07/13 completed Not Available Not Available Not Available Zofran 4 mg tablet Take 1 tablet every 8 hours by oral route as needed for 2 days. 08/08 completed Not Available Not Available Not Available lorazepam 0.5 mg tablet TAKE 1 TAB AT BEDTIME NEEDED 2013 active Not Available Not Available Not Avai lable Bleph-10 10 % eye drops Instill 1 drop into affected eye(s) by ophthalm ic route every 2-3 hours during the day and less frequent ly at night 2009 active Not Available Not Available Not Avai lable triamcino lone acetonide 0.1 % topical ointment apply thin layer to itchy rash 2x/d prn. do not use on broken skin 2013 active Not Available Not Available Not Avai lable ranitidin e 150 mg tablet TAKE ONE TABLET BY MOUTH TWICE DAILY active Not Available Not Available No t Available nystatin- triamcino lone 100,000 unit/g-0. 1 % topical cream Apply to the affected area(s) by topical route 2 times per day in the morning and evening 2009 active Not Available Not Available Not Avai lable omeprazol e 20 mg capsule,d elayed release active Not Available Not Available Not Available Cortispor in 3.5 mg/mL-10, 000 unit/mL-1 % ear solution Instill 4 drops 3 times a day by otic route for 7 days. 01/07 completed Not Available Not Available Not Available Culturell e 10 billion cell capsule Take 1 capsule twice daily between antibiot ic doses. 2009 active Not Available Not Available Not Avai lable bismuth subsalicy late 262 mg tablet Take 2 tablets 4 times a day by oral route for 14 days. 06/12 completed Not Available Not Available Not Available levofloxa alexys 500 mg tablet Take 1 tablet every 24 hours by oral route for 14 days. 04/24 completed Not Available Not Available Not Available Anusol-HC 25 mg rectal supposito ry Insert 1 supposit ory twice a day by rectal route for 2 days. 2011 active Not Available Not Available Not Avai lable Lomotil 2.5 mg-0.025 mg tablet Take 2 tablets 4 times a day by oral route as needed. 2012 active Not Available Not Available Not Avai lable fluocinon neida 0.05 % topical cream Apply to the affected area(s) in a thin layer by topical route 2 times per day 2010 active Not Available Not Available Not Avai lable Tussionex [place] ic ER 10 mg-8 mg/5 mL suspensio n,extende d release Take 5 mL every 12 hours by oral route as needed. 2011 active PT REQUESTI NG Not Available Not Available Not Available loratadin e 10 mg tablet Take 1 tablet every day by oral route. 2013 active Not Available Not Available Not Avai lable Asacol 400 mg tablet,de layed release Take 2 tablets 3 times a day by oral route for 30 days. 2010 active Not Available Not Available Not Avai lable Bactrim DS 800 mg-160 mg tablet Take 1 tablet every 12 hours by oral route for 5 days. 05/30 completed Not Available Not Available Not Available Estrace 0.01% (0.1 mg/gram) vaginal cream Insert 1 gm by vaginal route every evening for 2 weeks and then twice a week. 2013 active Not Available Not Available Not Avai lable Cafergot 1 mg-100 mg tablet Take 1 tablet by oral route at start of attack, followed by 1 tablet every 1/2 hour if needed, up to 6 tablets per attack 2008 active Not Available Not Available Not Avai lable Prilosec OTC 20 mg tablet,de layed release Take 1 tablet every day by oral route on an empty stomach 30-60 min before breakfas t. 2010 active Not Available Not Available Not Avai lable bupropion HCl XL 150 mg 24 hr tablet, extended release Take 1 tablet every day by oral route. active Not Available Not Available No t Available ProAir HFA 90 mcg/actua tion aerosol inhaler Inhale 2 puffs every 4 hours by inhalati on route as needed. 2013 active Not Available Not Available Not Avai lable Citrucel Sugar Free oral powder 2007 active Take 1.00 ea as directed Not Available Not Available Not Available Hemorrhoi shamar Cream 0.25 %-1 % rectal Apply twice daily as needed. 2010 active Not Available Not Available Not Avai lable Vagifem 10 mcg vaginal tablet Insert 1 tablet twice a week by vaginal route for 14 days. 2013 active Not Available Not Available Not Avai lable Vitals Date Recorded Body height Body weight Heart rate Body mass index (BMI) Body temperature Systolic blood pressure Diastolic blood pressure Provider Name and Address Organization Details Last Updated DateTime 4 156.21 cm 83519.0 74117 g 64 /min 30.9 kg/m2 98 [degF] 100 mm[Hg] 70 mm[Hg] Luisa Plummer MA [facility] 4 12:24:56 Date Recorded Body height Heart rate Systolic blood pressure Diastolic blood pressure Provider Name and Address Organization Details Last Updated DateTime 11/23/2013 156.21 cm 68 /min 118 mm[Hg] 72 mm[Hg] Sarah Gaitan LPN [facility] 11/23/2013 13:39:32 Date Recorded Body height Body mass index (BMI) Body weight Heart rate Systolic blood pressure Diastolic blood pressure Provider Name and Address Organization Details Last Updated DateTime 4 156.21 cm 31.6 kg/m2 74948.7 029 g 68 /min 120 mm[Hg] 74 mm[Hg] Sarah Gaitan LPN [facility] 4 11:18:20 Date Recorded Body height Body weight Heart rate Body mass index (BMI) Systolic blood pressure Diastolic blood pressure Provider Name and Address Organization Details Last Updated DateTime 4 156.21 cm 65012.7 36560 g 68 /min 31.1 kg/m2 132 mm[Hg] 88 mm[Hg] Luisa Plummer MA [facility] 4 10:10:41 Social History Question Answer Notes LastModified by Organization Details LastModified Time Tobacco Smoking Status Never Smoker Never Not Available [facility] 09/20/2010 02:08:42 Do You Have An Advance Directive? No Information not available 03/14/2011 What Is Your Level Of Alcohol Consumption? Occasional [email or web address] Information not available 03/29/2013 How Much Tobacco Do You Chew? None Never Information not available 07/14/2009 What Type Of Diet Are You Following? REGULAR Not A Lot Of Fried Foods/grease, No Soda Information not available 07/14/2009 Which Illicit Or Recreational Drugs Have You Used? 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 No Information not available 03/14/2011 Live Alone Or With Others? With Others 2 Children Geronimo Sarabia1 Information not available 07/13/2008 Mosquito Repellent Used Routinely Yes [email or web address] Information not available 03/14/2011 How Many Children Do You Have? 3 1993, 1995 Information not available 03/29/2013 Seat Belts Used Routinely Yes [email or web address] Information not available 03/14/2011 Are You Sexually Active? No Single After 19 Relationsip Information not available 03/29/2013 Smoke Alarm In Home Yes Carbon Monoxide - Yes Information not available 07/14/2009 Do You Use Sunscreen Routinely? Yes [email or web address] Information not available 03/14/2011 Sex: Unknown Functional Status None recorded. Mental Status None recorded. Family History Relationship Description Onset Age of this Age Resolved Age Notes LastModified by Organization Details LastModified Time Mother Arthritis [email or web address] [id number] Not available 12/07/2012 03:00:53 Mother Diabetes mellitus previo usly record ed as Diabet es [email or web address] [id number] Not available 12/07/2012 03:00:53 Mother Disorder of thyroid gland previo usly record ed as Thyroi d Diseas e [email or web address] [id number] Not available 12/07/2012 03:00:53 Brother Myocardial infarction 26 [email or web address] [id number] Not available 12/07/2012 03:00:53 Brother Problem dwarfi sm [email or web address] [id number] Not available 12/07/2012 03:00:53 Son Depressive disorder Not available 2012 09:51:49 Medical History Condition Response HEMATOLOGIC Y Allergic Rhinitis Y Asthma Y Gynecological HistoryNo gynecological history recorded. Obstetrics History GPAL:G 0 P 0 0 0 0 Immunizations Vaccine Type Date Status Note Provider Nam e and Address Organization Details Recorded Time Influenza, split virus, trivalent, preservative 1 completed Not Available [facility] 05/15/2019 02:18:12 Td(adult) unspecified formulation 7 completed Not Available [facility] 03/13/2011 05:23:04 Influenza, split virus, trivalent, PF 3 completed Not Available [facility] 05/15/2019 02:34:58 Influenza, split virus, trivalent, preservative 0 completed Not Available [facility] 05/15/2019 02:36:32 Novel [id number] 0 completed Not Available [facility] 05/15/2019 02:32:30 Hep B, adult 4 completed Not Available [facility] 05/15/2019 02:17:20 Hep B, adult 0 completed Not Available [facility] 05/15/2019 02:20:11 Hep B, adult 0 completed Not Available [facility] 05/15/2019 02:16:56 Past Encounters Encounter ID Performer Location Encounter Start Date Encounter Closed Date Diagnosis/Indication Diagnosis SNOMED-CT Code Diagnosis ICD10 Code Diagnosis Note [id number] [facility], OFFICE [address] [place] [address] 6 07/11/2006 14:24:28 07/11/2006 16:32:52 [id number] [facility], OFFICE [address] [place] [id number] 6 07/21/2006 16:21:14 07/21/2006 17:06:49 [id number] [facility], OFFICE [address] [place] [id number] 6 05/22/2007 14:17:17 06/17/2007 11:40:29 [id number] [facility], OFFICE [address] [place] [address]447 6 06/22/2007 18:03:16 05/18/2008 02:02:29 [id number] [facility] - [address] [place] [address] 06/23/2007 08:35:33 06/23/2007 08:38:53 [id number] , [facility], OFFICE [address] [place] [address] 06/25/2007 09:57:33 05/18/2008 02:02:29 [id number] , [facility], OFFICE [address] [facility] [place] [address] 07/14/2007 12:57:07 05/18/2008 02:02:29 [id number] , [facility], OFFICE [address] [facility] [place] [address] 07/24/2007 13:24:37 05/18/2008 02:02:29 [id number] , [facility], OFFICE [address] [place] [facility] [place] [address] 07/28/2007 10:17:05 05/18/2008 02:02:29 [id number] [facility] - C [address] [place] [address] 12/11/2007 11:22:56 12/11/2007 11:35:44 [id number] , [facility], OFFICE [address] [place] [facility] [place] [address] 12/11/2007 09:56:39 05/18/2008 02:02:29 [id number] , [facility], OFFICE [address] [place] [facility] [place] [address] 03/29/2008 16:01:25 05/18/2008 02:02:29 [id number] , [facility], OFFICE [address] [facility] [place] [address] 07/13/2008 14:44:51 07/15/2008 15:26:52 [id number] , [facility], OFFICE [address] [facility] [place] [address] 6 08/16/2008 16:13:29 08/18/2008 10:20:20 [id number] , C, OFFICE [address] [place] [facility] [place] [address] 10/12/2008 16:41:19 10/18/2008 08:53:08 [id number] FP, C, OFFICE [address] [place] [facility] [place] [address] 10/17/2008 16:13:55 10/19/2008 13:54:56 [id number] FP, C, OFFICE [address] [facility] [place] [address] 02/23/2009 16:31:59 02/28/2009 10:37:17 [id number] , C, OFFICE [address] [place] [facility] [place] [address] 03/29/2009 08:59:42 03/30/2009 16:17:39 [id number] FP, C, OFFICE [address] [place] [facility] [place] [address] 03/31/2009 14:38:14 04/04/2009 10:42:24 [id number] FP, C, OFFICE [address] [place] [facility] [place] [address] 6 04/07/2009 15:54:32 04/11/2009 12:26:09 [id number] , C, OFFICE [address] [place] [facility] [place] [address] 04/26/2009 10:28:26 04/29/2009 19:54:37 [id number] C, OFFICE [address] [place] [facility] [place] [address] 6 05/02/2009 18:12:24 05/05/2009 10:54:21 [id number] [facility], OFFICE [address] [place] [facility] [place] [address] 05/17/2009 08:28:19 05/22/2009 11:42:17 [id number] , C, OFFICE [address] [place] [facility] [place] [address] 05/29/2009 08:47:46 06/01/2009 14:37:26 [id number] FP, C, OFFICE [address] [place] [facility] [place] [address] 06/01/2009 15:21:33 06/08/2009 14:48:06 [id number] FP, C, OFFICE [address] [place] [facility] [place] [address] 06/08/2009 16:12:57 06/09/2009 15:45:06 [id number] FP, C, OFFICE [address] [place] [address] 06/20/2009 08:06:32 06/22/2009 15:24:41 [id number] FP, [facility], OFFICE [address] [facility] [place] [address] 06/29/2009 15:24:55 07/05/2009 09:55:24 [id number] FP, C, OFFICE [address] [facility] [place] [address] 07/14/2009 16:04:13 07/18/2009 11:18:15 [id number] FP, C, OFFICE [address] [facility] [place] [address] 07/21/2009 15:48:43 07/25/2009 10:42:25 [id number] FP, C, OFFICE [address] [place] [facility] [place] [address] 08/08/2009 15:41:52 08/11/2009 14:36:05 [id number] FP, C, OFFICE [address] [place] [facility] [place] [address] 09/19/2009 15:00:38 09/28/2009 07:57:30 [id number] FP, C, OFFICE [address] [place] [facility] [place] [address] 11/03/2009 14:20:45 11/08/2009 14:58:10 [id number] FP, C, OFFICE [address] [place] [facility] [place] [address] 01/02/2010 16:24:48 01/05/2010 11:15:35 [id number] FP, C, OFFICE [address] [place] [facility] [place] [address] 03/26/2010 09:32:27 03/30/2010 13:30:43 [id number] FP, C, OFFICE [address] [place] [facility] [place] [address] 04/10/2010 13:13:56 04/12/2010 14:38:32 [id number] FP, C, OFFICE [address] [place] [facility] [place] [address] 6 06/12/2010 16:23:23 06/18/2010 15:51:35 [id number] FP, [facility], OFFICE [address] [place] [address] 08/07/2010 15:20:56 08/10/2010 14:27:41 [id number] FP, [facility], OFFICE [address] [place] [address] 6 08/15/2010 16:48:34 08/21/2010 07:55:10 [id number] FP, [facility], OFFICE [address] [place] [address] 6 09/07/2010 13:27:28 09/12/2010 15:10:15 [id number] FP, [facility], OFFICE [address] [facility] [place] [address] 6 01/24/2011 13:23:45 01/24/2011 14:13:51 [id number] FP, C, OFFICE [address] [facility] [place] [address] 04/02/2011 08:42:22 04/02/2011 09:47:09 [id number] FP, C, OFFICE [address] [place] [address] 6 04/18/2011 15:23:19 04/18/2011 16:08:25 [id number] FP, C, OFF[address] [facility] [place] [address] 05/01/2011 11:08:56 05/01/2011 11:57:08 [id number] FP, C, OFFICE [address] [facility] [place] [address] 06/27/2011 11:50:45 06/27/2011 12:29:40 [id number] FP, C, OFFICE [address] [facility] [place] [address] 07/16/2011 07:53:06 07/16/2011 08:50:17 [id number] FP, [facility], OFFICE [address] [facility] [place] [address] 01/01/2012 16:32:23 01/01/2012 17:22:22 [id number] Momo Chatterjee, ANITA FP, [facility], OFFICE [address] [place] [address] 04/03/2012 12:07:47 04/03/2012 12:37:16 [id number] Marleny JAMA [facility], OFFICE [address] [place] [address] 6 06/16/2012 13:24:09 06/16/2012 14:14:16 [id number] Marleny JAMA, [facility], OFFICE [address] [place] [address] 6 07/21/2012 07:36:22 07/21/2012 08:24:34 [id number] Marleny JAMA, [facility], OFFICE [address] [place] [address] 6 08/06/2012 15:18:47 08/06/2012 15:57:29 [id number] Brandi JAMA [facility], OFFICE [address] [place] [address] 6 03/29/2013 08:48:38 03/29/2013 10:18:43 Adult health examination [id number] see Risk Assessment and Lifestyle Change Counseling section above Counseling [id number] Eczema 03572323 Acute sinusitis 72024977 Hopefully resolving, has just finished Z pack. FU T>100, worsening sx,other concerns. Sciatica 31826792 Gastroesop hageal reflux disease 445468244 Asthma 431407184 Examinatio n for population survey [id number] Influenza vaccine needed [id number] Brandi JAMA [facility], OFFICE [address] [place] [address] 6 05/25/2013 11:17:36 05/25/2013 12:03:29 Urinary tract infectious disease 74918520 Patient instructed to push fluids, to follow up for persistent or worsening symptoms or fever or back pain. [id number] ELOY Guillaume, [facility], OFFICE [address] [place] [address] 6 07/27/2013 09:33:00 07/27/2013 10:39:30 Acute sinusitis 64922117 Gastroesop hageal reflux disease 686006743 Backache 878342662 Vaginitis 67276699 Sciatica 62568266 [id number] ANITA Monique, [facility], OFFICE [address] [place] [address] 6 08/27/2013 12:04:38 08/27/2013 14:12:38 Colitis, enteritis and gastroenteritis presumed infectious 479882981 Insomnia 404523904 [id number] Russell Orozco MD , [facility], OFFICE [address] [place] [address] 6 09/07/2013 15:42:16 09/07/2013 16:08:49 Dysuria [id number] Sandra Slaughter , [facility], OFFICE [address] [place] [address] 6 10/15/2013 11:53:12 10/15/2013 14:58:26 Insomnia 184525089 Upper resp iratory infection 20787258 [id number] Momo Chatterjee NP , [facility], OFFICE [address] [place] [address] 6 11/23/2013 13:25:44 11/23/2013 14:17:10 Atrophic vaginitis 14432958 Left lower quadrant pain 636742163 [id number] Luisa Plummer MA , [facility], OFFICE [address] [place] [address] 6 12/10/2013 11:00:53 12/10/2013 11:52:53 Atrophic vaginitis 41951588 Nabothian follicles on cervix 72920760 Antibody measurement 3122756 [id number] Grisel Shaikh , [facility], OFFICE [address] [place] [address] 12/17/2013 09:02:16 12/21/2013 08:26:05 Infective hepatitis immunization [id number] [id number] Valery Mari MD , [facility], OFFICE [address] [place] [address] 6 01/14/2014 09:59:22 01/14/2014 10:30:42 Asthma 670445653 Allergic r hinitis caused by pollen 82127613 Sinusitis 80578128 Eczema 64678487 Health Concerns Section Related Observation LastModified by Organization Detai ls LastModified Time None Recorded Concern Status LastModified by Organization Details LastModified Time None Recorded Advance Directives Directive N: Payers Encounter Date Sequence Insurance Name Policy Number Policy Calabrese Covered Member ID Calabrese Member ID Guarantor Name 10/15/2013 1 [place] [id number] Salustina Quirino 11/23/2013 1 [place] Salrachelina Quirino [id number] Salustina Quirino 12/10/2013 1 [place] Salustina Quirino [id number] Salustina Quirino 12/17/2013 1 [place] Salustina Quirino [id number] Salustina Quirino 01/14/2014 1 [place] Salrachelina Quirino [id number] Salustina Quirino Notes Date Note Type Note Provider Name and Address Organization Details Recorded Time 11/23/2013 text/html Every time I hav e sex I have pain for 3 days. Momo Chatterjee NP [address] [place], [address] [facility] [place]/25/2013 20:19:11 12/10/2013 text/html Since last visit has felt better. Tried Estrace cream but didn't like using it. Too messy. Has stopped having sex due to it's being painful. Discussed US results at some length. I don't think it explains her pelvic pain, which is nevertheless much improved. Will repeat in 3 months to check complex nabothians cyst. Has school immunization requirements. Momo Chatterjee NP [address] [place], [address] [facility] [place] 12/12/2013 12:21:48 01/14/2014 text/html sinus pressure a nd RAMSEY off and on for the past 1.5week. this always occurs this time of year. now feeling pain/pressure L frontal and maxillary area x2d. It is making her feel dizzy. She is taking flonase. not taking nay allergy pills. no fever. but does feel fatigued- she is not sleeping well. No cough. +sneezing. Ibuprofen and aleve helps the RAMSEY. asthma has not been worse lately. She is using proair prn but has not needed it in the past 1.5weeks itchy areas on both sides of neck Valery Mari MD [address] [place], [address] [facility] [place]/14/[place] 10:31:25 OBGyn Episode No OBEpisode recorded.
--- OUTSIDE RECORDS SUMMARY | 2024-06-10 12:01 | XMS_ITS | Encounter Summary ---
Author Organization [employer] Address [address] [place] [address] 7 [place] [address] Care Team Providers Care Sales Representative Adding Machines Name Role Phone Juana Mcclain NP Primary Care Provider [phone] Reason for Visit * Reason Onset Date Comments NUTRITION APPT REQUEST 05/27/2024 Encounter Details Date Type Department Care Team ([facility] Contact Info) Description 05/27/2024 Telephone [facility] [address] [place] [address] Myriam Morel, SHANE [address] [place] [address] NUTRITION APPT REQUEST Social History Tobacco Use Types Packs/Day Years Used Date Smoking Tobacco: Never Passive Smoke Exposure: Never Smokeless Tobacco: Never Alcohol Use Standard Drinks/Week Comments Yes 4 [...] PM EDT documented as of this encounter Miscellaneous Notes * Telephone Encounter - Colleen Houston - 05/27/2024 10:54 AM EST Called PT to schedule a nutrition appt. PT answered and ended call. documented in this encounter Plan of Treatment Upcoming Encounters Date Type Department Care Team (Late st Contact Info) Description 06/16/2024 9:30 AM EST Office Visit [facility] [address] [place] [address] Juana Mcclain NP [address] [place] [address] documented as of this encounter Visit Diagnoses Not on filedocumented in this encounter Additional Health Concerns Assessment Noted Time PHQ-9 Depression Total Score: 0 04/23/20 10:58 AM EST documented as of this encounter Care Teams Sales Representative Adding Machines Relationship Specialty Start Date End Date Juana Mcclain NP [address] [place] [address] PCP - General Family Medicine 12/30/23 documented as of this encounter
--- OUTSIDE RECORDS SUMMARY | 2024-06-10 12:01 | XMS_ITS | Encounter Summary ---
Author Organization [employer] Address [address] [place] [address] 7 [place] [address] Care Team Providers Care Stripper Apprentice Name Role Phone Jalyn [place] Primary Care Provider [phone] Juana Mcclain NP Primary Care Provider [phone] Encounter Details Date Type Department Care Team (Late st Contact Info) Description 06/07/2022 Orders Only [facility] MED[facility] [address] [place] [address] Jalyn [place] FNP [address] [place] [address] Menopausal problem (Primary Dx); Vitamin D insufficiency Social History Tobacco Use Types Packs/Day Years Used Date Smoking Tobacco: Never Smokeless Tobacco: Never Alcohol Use Standard Drinks/Week Comments Not Currently 0 (1 standard drink = 0.6 oz pur e alcohol) Depression Answer Date Recorded Patient Health Questionnaire-9 Score 5 05/24/2022 Depression Answer Date Recorded Patient Health Questionnaire-2 Score 1 05/24/2022 Comments Unknown Sex and Gender Information Value Date Recorded Sex Assigned at Female 02/25/2022 10:25 AM EDT Legal Sex Female 10:25 AM EDT Gender Identity Female 02/25/2022 10:25 AM EDT Sexual Orientation Straight 01/21/2024 12 :16 PM EDT COVID-19 Exposure Response Date Recorded In the last 10 days, have yo u been in contact with someone who was confirmed or suspected to have Coronavirus/COVID-19? No / Unsure 05/24/2022 10:03 AM EST documented as of this encounter Plan of Treatment Upcoming Encounters Date Type Department Care Team (Late st Contact Info) Description 06/16/2024 9:30 AM EST Office Visit [facility] [address] [place] [address] Juana Mcclain NP [address] [place] [address] documented as of this encounter Visit Diagnoses Diagnosis Menopausal problem- Primary Unspecified menopausal and postmenopausal disorder Vitamin D insufficiency documented in this encounter Additional Health Concerns Assessment Noted Time PHQ-9 Depression Total Score: 5 05/24/19 10:19 AM EST documented as of this encounter Care Teams Stripper Apprentice Relationship Specialty Start Date End Date Jalyn [place] FNP [address] [place] [address] PCP - General Family Medicine 05/17/22 12/29/23 Juana Mcclain NP [address] [place] [address] PCP - General Family Medicine 12/30/23 documented as of this encounter
--- OUTSIDE RECORDS SUMMARY | 2024-06-10 12:01 | XMS_ITS | Encounter Summary ---
Author Organization [employer] Address [address] [place] [address] [address] [place] [address] Care Team Providers Care Casing Mixer Name Role Phone Juana Mcclain NP Primary Care Provider [phone] Reason for Visit * Reason Onset Date Comments Med Refill 01/21/2024 Encounter Details Date Type Department Care Team ([facility] st Contact Info) Description 01/21/2024 Refill [facility] [address] [place] [address] Jalyn [place] FNP [address] [place] [address] Social History Tobacco Use Types Packs/Day Years [...] Description 06/16/2024 9:30 AM EST Office Visit [facility] [address] [place] [address] Juana Mcclain NP [address] [place] [address] documented as of this encounter Visit Diagnoses Not on filedocumented in this encounter Additional Health Concerns Assessment Noted Time PHQ-9 Depression Total Score: 8 08/27/19 24 4:23 PM EDT documented as of this encounter Care Teams Casing Mixer Relationship Specialty Start Date End Date Juana Mcclain NP [address] [place] [address] PCP - General Family Medicine 12/30/23 documented as of this encounter
--- OUTSIDE RECORDS SUMMARY | 2024-06-10 12:01 | XMS_ITS | Encounter Summary ---
Author Organization [employer] Address [address] [place] [address] [address] [place] [address] Care Team Providers Care Chefs Name Role Phone Juana Mcclain NP Primary Care Provider [phone] Reason for Visit * Reason Onset Date Comments Med Refill 01/21/2024 Encounter Details Date Type Department Care Team ([facility] st Contact Info) Description 01/21/2024 Refill [facility] [address] [place] [address] Jalyn [place] FNP [address] [place] [address] Seasonal allergies Social History Tobacco Use Types Packs/Day Years [...] Description 06/16/2024 9:30 AM EST Office Visit [facility] [address] [place] [address] Juana Mcclain NP [address] [place] [address] documented as of this encounter Visit Diagnoses Diagnosis Seasonal allergies Allergic rhinitis, cause unspecified documented in this encounter Additional Health Concerns Assessment Noted Time PHQ-9 Depression Total Score: 8 08/27/19 24 4:23 PM EDT documented as of this encounter Care Teams Chefs Relationship Specialty Start Date End Date Juana Mcclain NP [address] [place] [address] PCP - General Family Medicine 12/30/23 documented as of this encounter
--- OUTSIDE RECORDS SUMMARY | 2024-06-10 12:01 | XMS_ITS | Encounter Summary ---
Author Organization [employer] Address [address] [place] [address] [address] [place] [address] Care Team Providers Care Senior Ui Ux Designer Name Role Phone Escobarneftaly Jalyn SENIOR VISUAL DESIGNER Primary Care Provider [phone] Juana Mcclain FRESH FOOD MANAGER Primary Care Provider [phone] Encounter Details Date Type Department Care Team ([facility] Contact Info) Description 07/24/2022 Orders Only [facility] [address] [place] [address] Flaca Chowdhury LPN Social History Tobacco Use [...] suspected to have Coronavirus/COVID-19? No / Unsure 07/24/2022 8:48 AM EDT documented as of this encounter Plan of Treatment Upcoming Encounters Date Type Department Care Team ([facility] Contact Info) Description 06/16/2024 9:30 AM EST Office Visit [facility] MEDICINE [address] [place] [address] Juana Mcclain NP [address] [place] [address] documented as of this encounter Visit Diagnoses Not on filedocumented in this encounter Additional Health Concerns Assessment Noted Time PHQ-9 Depression Total Score: 5 05/24/19 10:19 AM EST documented as of this encounter Care Teams Senior Ui Ux Designer Relationship Specialty Start Date End Date Jalyn [place] FNP [address] [place] [address] PCP - General Family Medicine 05/17/22 12/29/23 Juana Mcclain NP [address] [place] [address] PCP - General Family Medicine 12/30/23 documented as of this encounter
--- OUTSIDE RECORDS SUMMARY | 2024-06-10 12:01 | XMS_ITS | Encounter Summary ---
Author Organization [employer] Address [address] [place] [address] 7 [place] [address] Care Team Providers Care Applications Support Analyst Name Role Phone Juana Mcclain NP Primary Care Provider [phone] Reason for Visit * Reason Onset Date Comments Med Refill 01/21/2024 Encounter Details Date Type Department Care Team ([facility] st Contact Info) Description 01/21/2024 Refill [facility] [address] [place] [address] Jalyn Washington FNP [address] [place] [address] Gastroesophageal reflux disease without esophagitis Social History Tobacco Use Types Packs/Day Years [...] Description 06/16/2024 9:30 AM EST Office Visit [facility] [address] [place] [address] Juana Mcclain NP [address] [place] [address] documented as of this encounter Visit Diagnoses Diagnosis Gastroesophageal reflux disease without esophagitis Esophageal reflux documented in this encounter Additional Health Concerns Assessment Noted Time PHQ-9 Depression Total Score: 8 08/27/19 24 4:23 PM EDT documented as of this encounter Care Teams Applications Support Analyst Relationship Specialty Start Date End Date Juana Mcclain NP [address] [place] [address] PCP - General Family Medicine 12/30/23 documented as of this encounter
--- OUTSIDE RECORDS SUMMARY | 2024-06-10 12:01 | XMS_ITS | Encounter Summary ---
Author Organization [employer] Address [address] [place] [address] 7 [place] [address] Care Team Providers Care Slot Operations Manager Name Role Phone Juana Mcclain NP Primary Care Provider [phone] Reason for Visit * Reason Comments Vaginal Itching Encounter Details Date Type Department Care Team ([facility] Contact Info) Description 06/09/2024 4:20 PM EST Office Visit [facility] [address] [place] [address] Name, MD Francis [address] [place] [id number] Dysuria (Primary Dx); Urination frequency; Acute vaginitis Social History Tobacco Use Types Packs/Day Years [...] PM EDT documented as of this encounter Last Filed Vital Signs Vital Sign Reading Time Taken Comments Blood Pressure 144/86 06/09/2024 4:07 PM EST Pulse 74 06/09/2024 4:07 PM EST Temperature 36.8 ??C (98.2 ??F) 06/09/2024 4:07 PM ES T Respiratory Rate 16 06/09/2024 4:07 PM EST Oxygen Saturation - - Inhaled Oxygen Concentration - - Weight 90.4 kg (199 lb 6.4 oz) 06/09/2024 4:07 P M EST Height 154.9 cm (5' 1 ) 06/09/2024 4:07 PM EST Body Mass Index 37.68 06/09/2024 4:07 PM EST documented in this encounter Progress Notes * Francis Davalos MD - 06/09/2024 4:20 PM EST Subjective Patient ID: Иван Tamayo is a 58 y.o. female who presents for Vaginal Itching. Patient comes for a sick visit. She describes 3 days of dysuria, urinary frequency. She is sexuallyactive. She is status post hysterectomy. She does not use condoms. She denies any fever, no chills,no CV angle discomfort. She denies any vaginal discharge. Urine dipstick today showed trace leukocytes. She does not have any history of STDs. She explains to me that she had similar symptoms in the past associated with vaginal yeast infection. The patient has been using at home Pyridium and also some vaginal topical clindamycin she had at home leftover from previous treatment of BV without much benefit. Review of Systems Constitutional: Negative for chills and fever. Respiratory: Negative for shortness of breath. Cardiovascular: Negative for chest pain. Genitourinary: See HPI Visit Vitals BP (!) 144/86 (BP Location: Left arm, Patient Position: Sitting, BP Cuff Size: Large adult) Pulse 74 Temp 98.2 ??F (36.8 ??C) (Temporal) Resp 16 Ht 5' 1 (1.549 m) Wt 199 lb 6.4 oz (90.4 kg) BMI 37.68 kg/m?? OB Status Hysterectomy Smoking Status Never BSA 1.97 m?? Objective Physical Exam Constitutional: General: She is not in acute distress. Appearance: She is not ill-appearing or toxic-appearing. Cardiovascular: Rate and Rhythm: Normal rate and regular rhythm. Pulmonary: Effort: Pulmonary effort is normal. Abdominal: Tenderness: There is no abdominal tenderness. Component Ref Range & Units 16:17 4 mo ago Color, UA Yellow Yellow Clarity, UA Clear Clear Glucose, UA Negative Negative Bilirubin, UA Negative Negative Ketones, UA Negative Negative Spec Grav, UA 1.010 1.020 Blood, UA Negative, None Detected Negative Positive Abnormal CM pH, UA 6.0 6.0 Protein, UA Negative Negative Urobilinogen, UA 0.2 0.2 Leukocytes, UA Negative, Rare, Trace Trace 1+ 70+ Abnormal CM Nitrite, UA Negative, None Detected Negative Negative Assessment/Plan Diagnoses and all orders for this visit: Dysuria Comments: I will treat with a course of Bactrim, 1 dose of fluconazole for possible UTI and vaginal yeast infection. I recommended evaluation with testing listed below. She is encouraged to drink plenty of fluids. Further recommendation based on the results of testing and response to medication. Orders: - POCT urinalysis dipstick manually resulted - Culture, Urine, Routine Urination frequency Acute vaginitis - Chlamydia/N. Gonorrhoeae RNA, TMA, Urogenitial - Bacterial Vaginosis Other orders - sulfamethoxazole-trimethoprim (Bactrim DS) 800-160 MG tablet; Take 1 tablet by mouth 2 times daily for 3 days. - fluconazole (Diflucan) 150 MG tablet; Take 1 tablet (150 mg) by mouth 1 (one) time for 1 dose. documented in this encounter Plan of Treatment Upcoming Encounters Date Type Department Care Team (Late st Contact Info) Description 06/16/2024 9:30 AM EST Office Visit [facility] [address] [place] [address] Juana Mcclain NP [address] [place] [address] Scheduled Orders Name Type Priority Associated Diagnoses Orde r Schedule Chlamydia/N. Gonorrhoeae RNA, TMA, Urogenitial Microbiology Routine Acute vaginitis Ordered: 06/09/2024 Bacterial Vaginosis Microbiology Routine Acute vaginitis Ordered: 06/09/2024 Culture, Urine, Routine Microbiology Routine Dysuria Ordered: 06/09/2024 documented as of this encounter Procedures Procedure Name Priority Date/Time Associated Diagnosis Comments POCT URINALYSIS DIPSTICK Routine 06/09/2024 4:17 PM EST Dysuria documented in this encounter Results * POCT urinalysis dipstick manually resulted (06/09/2024 4:17 PM EST) Color, UA Yellow Clarity, UA Clear Glucose, UA Negative Bilirubin, UA Negative Ketones, UA Negative Spec Grav, UA 1.010 Blood, UA Negative Negative, None Detected pH, UA 6.0 Protein, UA Negative Urobilinogen, UA 0.2 Leukocytes, UA Trace Negative, Rare, Trace Nitrite, UA Negative Negative, None Detected Urine 06/09/2024 4:17 PM EST Francis Davalos MD POINT OF CARE TEST ENTER/EDIT OR DERABLES Final Result documented in this encounter Visit Diagnoses Diagnosis Dysuria- Primary Urination frequency Urinary frequency Acute vaginitis Unspecified vaginitis and vulvovaginitis documented in this encounter Additional Health Concerns Assessment Noted Time PHQ-9 Depression Total Score: 0 04/23/20 24 10:58 AM EST documented as of this encounter Care Teams Slot Operations Manager Relationship Specialty Start Date End Date Juana Mcclain NP [address] [place] [address] PCP - General Family Medicine 12/30/23 documented as of this encounter
--- OUTSIDE RECORDS SUMMARY | 2024-06-10 12:01 | XMS_ITS | Encounter Summary ---
Author Organization [employer] Address [address] [place] [address] 7 [place] [address] Care Team Providers Care Marine Electrician Name Role Phone Juana Mcclain NP Primary Care Provider Reason for Visit * Reason Onset Date Comments Med Refill 01/21/2024 Encounter Details Date Type Department Care Team ([facility] st Contact Info) Description 01/21/2024 Refill [facility] [address] [place] [address] Jalyn Washington FNP [address] [place] [address] Hot flash, menopausal Social History Tobacco Use Types Packs/Day Years [...] Description 06/16/2024 9:30 AM EST Office Visit [facility] [address] [place] [address] Juana Mcclain NP [address] [place] [address] documented as of this encounter Visit Diagnoses Diagnosis Hot flash, menopausal Symptomatic menopausal or female climacteric states documented in this encounter Additional Health Concerns Assessment Noted Time PHQ-9 Depression Total Score: 8 08/27/19 24 4:23 PM EDT documented as of this encounter Care Teams Marine Electrician Relationship Specialty Start Date End Date Juana Mcclain NP [address] [place] [address] PCP - General Family Medicine 12/30/23 documented as of this encounter
--- OUTSIDE RECORDS SUMMARY | 2024-06-10 12:01 | XMS_ITS | Encounter Summary ---
Author Organization [employer] Address [address] [place] [address] 7 [place] [address] Care Team Providers Care Gas Meter Checker Name Role Phone Juana Mcclain NP Primary Care Provider [phone] Reason for Visit * Reason Onset Date Comments Med Refill 01/21/2024 Encounter Details Date Type Department Care Team ([facility] st Contact Info) Description 01/21/2024 Refill [facility] [address] [place] [address] Jalyn Washington FNP [address] [place] [address] Social History Tobacco Use Types Packs/Day Years [...] Description 06/16/2024 9:30 AM EST Office Visit [facility] [address] [place] [address] Juana Mcclain NP [address] [place] [address] documented as of this encounter Visit Diagnoses Not on filedocumented in this encounter Additional Health Concerns Assessment Noted Time PHQ-9 Depression Total Score: 8 08/27/19 24 4:23 PM EDT documented as of this encounter Care Teams Gas Meter Checker Relationship Specialty Start Date End Date Juana Mcclain NP [address] [place] [address] PCP - General Family Medicine 12/30/23 documented as of this encounter
--- OUTSIDE RECORDS SUMMARY | 2024-06-10 12:01 | XMS_ITS | Encounter Summary ---
Author Organization [email or web address] Address [address] [place] [address] 7 [place] [address] Care Team Providers Care Tongue Stitcher Name Role Phone Juana Mcclain NP Primary Care Provider [phone] Reason for Visit * Reason Onset Date Comments Med Refill 01/21/2024 Encounter Details Date Type Department Care Team ([facility] st Contact Info) Description 01/21/[address] [facility] MED[facility]INE [address] [place] [address] Jalyn Washington FNP [address] [place] [address] Bee sting reaction, accidental or unintentional, initial [...] Description 06/16/2024 9:30 AM EST Office Visit [facility]INE [address] [place] [address] Juana Mcclain NP [address] [place] [address] documented as of this encounter Visit Diagnoses Diagnosis Bee sting reaction, accidental or unintentional, initial encounter documented in this encounter Additional Health Concerns Assessment Noted Time PHQ-9 Depression Total Score: 8 08/27/19 24 4:23 PM EDT documented as of this encounter Care Teams Tongue Stitcher Relationship Specialty Start Date End Date Juana Mcclain NP [address] [place] [address] PCP - General Family Medicine 12/30/23 documented as of this encounter
--- OUTSIDE RECORDS SUMMARY | 2024-06-10 12:01 | XMS_ITS | Encounter Summary ---
Author Organization [employer] Address [address] [place] [address] 7 [place] [address] Care Team Providers Care Marketing Analytics Analyst Name Role Phone Juana Mcclain NP Primary Care Provider [phone] Reason for Visit * Reason Onset Date Comments Med Refill 01/21/2024 Encounter Details Date Type Department Care Team ([facility] st Contact Info) Description 01/21/2024 Refill [facility] MED[facility]INE [address] [place] [address] Jalyn Washington FNP [address] [place] [address] Social History Tobacco Use Types Packs/Day Years [...] Description 06/16/2024 9:30 AM EST Office Visit [facility] MED[facility]INE [address] [place] [address] Juana Mccalin NP [address] [place] [address] documented as of this encounter Visit Diagnoses Not on filedocumented in this encounter Additional Health Concerns Assessment Noted Time PHQ-9 Depression Total Score: 8 08/27/19 24 4:23 PM EDT documented as of this encounter Care Teams Marketing Analytics Analyst Relationship Specialty Start Date End Date Juana Mcclain NP [address] [place] [address] PCP - General Family Medicine 12/30/23 documented as of this encounter
--- OUTSIDE RECORDS SUMMARY | 2024-06-10 12:01 | XMS_ITS | Encounter Summary ---
Author Organization [employer] Address [address] [facility] 7 [place] [address] Care Team Providers Care Psychology Intern Name Role Phone Juana Mcclain NP Primary Care Provider [phone] Reason for Visit * Reason Onset Date Comments chartprep 06/01/2024 Encounter Details Date Type Department Care Team ([facility] st Contact Info) Description 06/01/2024 Telephone [facility] [address] [place] [address] Gregory GuzmanNASHUA, [place] chartprep Social History Tobacco Use Types Packs/Day Years [...] encounter Miscellaneous Notes * Telephone Encounter - Gregory Guzman [place] - 06/01/2024 3:06 PM EST Chart Prep Labs: done Images: done Vaccines due: Covid Due, PCV20 Due, Flu Due, and Shingles in pharmacy Due Referrals: Gastroenterology CompletedPatient is all set fax received from office stating patients last colonoscopy was on 01/24/2016 and is not due until 01/23/2026. Office will contact patient once recall is due. Screenings: HIV screening Overdue care gaps: None documented in this encounter Plan of Treatment Upcoming Encounters Date Type Department Care Team (Late st Contact Info) Description 06/16/2024 9:30 AM EST Office Visit [facility] [address] [place] [address] Juana Mcclain NP [address] [place] [address] documented as of this encounter Visit Diagnoses Not on filedocumented in this encounter Additional Health Concerns Assessment Noted Time PHQ-9 Depression Total Score: 0 04/23/20 10:58 AM EST documented as of this encounter Care Teams Psychology Intern Relationship Specialty Start Date End Date Juana Mcclain NP [address] [place] [address] PCP - General Family Medicine 12/30/23 documented as of this encounter
--- OUTSIDE RECORDS SUMMARY | 2024-06-10 12:01 | XMS_ITS | Encounter Summary ---
Author Organization [employer] Address [address] [facility] 7 [place] [address] Care Team Providers Care Customer Response Representative Name Role Phone Juana Mcclain NP Primary Care Provider [phone] Reason for Visit * Reason Onset Date Comments Med Refill 01/21/2024 Encounter Details Date Type Department Care Team ([facility] st Contact Info) Description 01/21/2024 Refill [facility] [address] [place] [address] Sebastien Jasmine MD [address] [place] [address] Social History Tobacco Use Types Packs/Day Years [...] 9:30 AM EST Office Visit [facility] [address] [place] [address] Juana Mcclain NP [address] [place] [address] documented as of this encounter Visit Diagnoses Not on filedocumented in this encounter Additional Health Concerns Assessment Noted Time PHQ-9 Depression Total Score: 8 08/27/19 24 4:23 PM EDT documented as of this encounter Care Teams Customer Response Representative Relationship Specialty Start Date End Date Juana Mcclain NP [address] [place] [address] PCP - General Family Medicine 12/30/23 documented as of this encounter
--- OUTSIDE RECORDS SUMMARY | 2024-06-10 12:01 | XMS_ITS | Encounter Summary ---
Author Organization [employer] Address [address] [place] [address] 7 [place] [address] Care Team Providers Care Gear Coding Machine Operator Name Role Phone Juana Mcclain NP Primary Care Provider [phone] Reason for Visit * Reason Onset Date Comments Med Refill 01/21/2024 Encounter Details Date Type Department Care Team ([facility] st Contact Info) Description 01/21/2024 Refill [facility] [address] [place] [address] Jalyn Washington FNP [address] [place] [address] Dry mouth Social History Tobacco Use Types Packs/Day Years [...] 06/16/2024 9:30 AM EST Office Visit [facility] [address] [place] [address] Juana Mcclain NP [address] [place] [address] documented as of this encounter Visit Diagnoses Diagnosis Dry mouth Disturbance of salivary secretion documented in this encounter Additional Health Concerns Assessment Noted Time PHQ-9 Depression Total Score: 8 08/27/19 24 4:23 PM EDT documented as of this encounter Care Teams Gear Coding Machine Operator Relationship Specialty Start Date End Date Juana Mcclain NP [address] [place] [address] PCP - General Family Medicine 12/30/23 documented as of this encounter
--- OUTSIDE RECORDS SUMMARY | 2024-06-10 12:01 | XMS_ITS | Encounter Summary ---
Author Organization [employer] [facility] Address [address] [place] [address] Care Team Providers Care Deputy County Attorney Name Role Phone Jalyn Washington Primary Care Provider [phone] Juana Mcclain NP Primary Care Provider [phone] Encounter Details Date Type Department Care Team (Late st Contact Info) Description 10/09/2022 Abstract [facility] MEDICINE [address] [place] [address] Jalyn Washington FNP [address] [place] [address] Social History Tobacco Use Types Packs/Day Years [...] Description 06/16/2024 9:30 AM EST Office Visit [facility] MED[facility]INE [address] [place] [address] Juana Mcclain NP [address] [place] [address] documented as of this encounter Procedures Procedure Name Priority Date/Time Associated Diagnosis Comments COLONOSCOPY Routine 08/15/2020 3:59 PM EDT documented in this encounter Results * Colonoscopy (08/15/2020 3:59 PM EDT) Colonoscopy Normal Normal Narrative Kirstin Carranza - 08/15/2020 3:59 PM EDT Recommended 10 year follow up ; consider [place] testing in 5 and 7 years [place] [facility] [place] Historical Provider HEALTH MAINTENANCE Edited Result - Final documented in this encounter Visit Diagnoses Not on filedocumented in this encounter Additional Health Concerns Assessment Noted Time PHQ-9 Depression Total Score: 5 05/24/19 23 10:19 AM EST documented as of this encounter Care Teams Deputy County Attorney Relationship Specialty Start Date End Date Jalyn Washington FNP [address] [place] [address] PCP - General Family Medicine 05/17/22 12/29/23 Juana Mcclain NP [address] [place] [address] PCP - General Family Medicine 12/30/23 documented as of this encounter
[2024-06-10 13:32] LABS: Bacterial Vaginosis PCR NEGATIVE (Negative); Candida Group PCR NOT DETECTED (Not Detect); Candida glab krusei PCR NOT DETECTED (Not Detect); Trichomonas vaginalis PCR NOT DETECTED (Not Detect)
[2024-06-10 14:04] LABS: CT PCR NOT DETECTED (Not Detect.); NG PCR NOT DETECTED (Not Detect.)
== END 2024-06-09 00:01 | disposition home or self-care (01) ==
LOC: HO.HHCLNP
PROVIDERS: Visit Provider Internal Medicine Geriatric Medicine
DX: R30.0 Dysuria (principal); N76.0 Acute vaginitis
CPT/HCPCS: 81515; 87086; 87491; 87591

== ENCOUNTER 2024-06-16 | Outpatient (REF) | payer OTHER, SELFPAY ==
[2024-06-21 15:05] LABS: HPV Genotype 16 Negative (Negative); HPV Genotype 18 Positive (Negative); HPV High Risk Positive (Negative)
--- OUTSIDE RECORDS SUMMARY | 2024-10-19 15:34 | XMS_ITS | Clinical Summary ---
Author Organization [employer] Address [address] [place] [address] 7 [place] [address] Care Team Providers Care Copy Director Name Role Phone Juana Mcclain NP Primary Care Provider [phone] Allergies Active Allergy Reactions Criticality Noted Date Comments Acetaminophen-Codeine 08/04/2023 Hives, and seeing black shadows Amoxicillin Hives 2014 Aspirin Other 2014 GI upset Other Reaction(s): Stomach Pain Bee Venom 02/10/2023 Codeine Itching 2014 Metronidazole 2014 Hives and saw black shadow Oxycodone Itching 2014 Penicillin G Hives 2014 Penicillins Hives 05/24/2022 Medications albuterol (Ventolin HFA) 108 (90 Base) MCG/ACT inhalerIndicati ons:Mild intermittent asthma without complication INHALE 2 PUFFS EVERY 4 HOURS NEEDED 20.1 g 2 024 Active cetirizine (ZyrTEC) 10 MG tabletIndicatio ns:Seasonal allergies Take 1 tablet (10 mg) by mouth Once per day. 90 tablet 3 024 2024 Active cyclobenzaprine (Flexeril) 5 MG tablet TAKE 1 TABLET BY MOUTH THREE TIMES DAILY NEEDED FOR MUSCLE SPASMS 30 tablet 3 024 Active cholecalciferol (Vitamin D-3) 25 MCG (1000 UT) capsuleIndicati ons:Hypovitamin osis D TAKE 1 CAPSULE BY MOUTH EVERY DAY 90 capsule 1 025 Active omeprazole (PriLOSEC) [address] capsule TAKE 1 CAPSULE BY MOUTH TWICE A DAY 180 capsule 1 025 Active miconazole (Micotin) 2 % creamIndication s:Tinea corporis Apply topically 2 times daily. Apply to affected area twice daily until rash resolves. 118 mL 1 025 Active hydroCHLOROthia zide 12.5 MG tabletIndicatio ns:Essential hypertension TAKE 1 TABLET BY MOUTH EVERY DAY IN THE MORNING 90 tablet 2 025 Active fluconazole (Diflucan) 150 MG tabletIndicatio ns:Tinea corporis Take 1 tablet (150 mg) by mouth 1 (one) time per week. 2 tablet 025 Active ketoconazole (NIZOral) 2 % shampooIndicati ons:Tinea corporis Apply topically 2 (two) times a week. 120 mL 1 025 Active lidocaine (Lidoderm) 5 % patchIndication s:Chronic pain of both knees APPLY 1 PATCH TOPICALLY TO SKIN, LEAVE ON FOR 12 HOURS AND OFF FOR 12 HOURS DIRECTED 30 patch 025 Active triamcinolone (Kenalog) 0.1 % ointmentIndicat ions:Rash Apply topically 2 times daily. 80 g 1 025 Active Hydrocortisone, Perianal, (Preparation H) 1 % creamIndication s:Hemorrhoids, unspecified hemorrhoid type Apply sparingly to affected area of anus. 26 g 025 Active buPROPion XL (Wellbutrin XL) 300 MG 24 hr tabletIndicatio ns:Major depressive disorder in full remission, unspecified whether recurrent (CMS/HCC) TAKE 1 TABLET (300 MG) BY MOUTH IN THE MORNING 91 tablet 025 Active Fluocinolone Acetonide Scalp 0.01 % oilIndications: Rash APPLY TO SCALP AND COVER OVERNIGHT. WASH IN MORNING WITH KETOCONAZOLE SHAMPOO TWICE A WEEK 118.28 mL 025 Active lidocaine (Lidoderm) 5 % patchIndication s:Chronic pain of both knees APPLY 1 PATCH TOPICALLY TO SKIN, LEAVE ON FOR 12 HOURS AND OFF FOR 12 HOURS DIRECTED 30 patch 024 2024 Discontinued(R eorder (will not trigger notification to Pharmacy)) buPROPion XL (Wellbutrin XL) 300 MG 24 hr tabletIndicatio ns:Major depressive disorder in full remission, unspecified whether recurrent (CMS/HCC) Take 1 tablet (300 mg) by mouth in the morning. 91 tablet 024 2024 Discontinued fluticasone (Flonase) 50 MCG/ACT nasal sprayIndication s:Viral syndrome SPRAY 1 SPRAY INTO EACH NOSTRIL DAILY. SHAKE GENTLY. BEFORE FIRST USE, PRIME PUMP. AFTER USE, CLEAN TIP AND REPLACE CAP. 48 g 025 2024 Discontinued(M ed list cleanup (will not trigger notification to Pharmacy)) Hydrocortisone, Perianal, (Preparation H) 1 % creamIndication s:Hemorrhoids, unspecified hemorrhoid type Apply sparingly to affected area of anus. 26 g 025 2024 Discontinued(R eorder (will not trigger notification to Pharmacy)) Fluocinolone Acetonide Scalp ([place]-Smoothe/ FS Scalp) 0.01 % oilIndications: Rash Apply to scalp and cover overnight. Wash in morning with ketoconazole shampoo twice a week 118 mL 025 2024 Discontinued triamcinolone (Kenalog) 0.1 % ointmentIndicat ions:Rash Apply topically 2 times daily. 80 g 1 025 2024 Discontinued(R eorder (will not trigger notification to Pharmacy)) Active Problems Problem Noted Date Diagnosed Date Routine health maintenance 03/03/2024 Assessment & Plan (03/03/2024 12:19 PM EST): Healthy 58 y.o. F -Optometry: over 3 years ago. Will make an appointment for routine exam -Dental: established with dental home near [facility]. -Last seen Apr 2023 -Breast CA: due for routine screening via mammogram. Would like afternoon appointment around 3 pm; if not [facility] -Cervical CA: screening completed 12/2023, however results not received as lab did ot run the test. Will need repeat testing; appointment scheduled today. -Colon CA: completed 10 years ago in [facility]. Had polyps removed. -Lung CA: N/A; patient was never a smoker -Outstanding IZ: decline immunizations today -Declined HIV testing today but is agreeable to Hep C testing. No concern for STI Class 2 obesity due to exces s calories without serious comorbidity with body mass index (BMI) of 36.0 to 36.9 in adult 02/18/2024 Assessment & Plan (08/26/2024 10:32 AM EDT): -discussed oral medication options such as topamax w/ phentermine, however, this is not safe at this time given her lack of BP control. -continue diet and lifestyle changes. Will reassess at follow-up visit Dietary Recommendations: Fruits, vegetables, whole grains, protein foods, and fat-free or low-fat dairy products are healthy choices. Eat different types of protein foods in your diet. This can include seafood, lean meats, poultry, beans, peas, lentils, nuts, seeds, soy products, and eggs. Limit foods and beverages higher in added sugars, saturated fat, and sodium. Exercise Recommendations: At least 150 minutes of moderate-intensity physical activity per week, or an equivalent combination of moderate- and vigorous-intensity activity Assessment & Plan (03/03/2024 1:36 PM EST): [...] to f w PCP Assessment & Plan (08/26/2024 10:25 AM EDT): -noted elevated readings on initial and manual repeat -discussed importance of BP management and negative implications associated with lack of control -discussed daily med compliance. She plans to adjust her routine and take med after awakening in the morning -will consider switching/adding olmesartan -lifestyle and dietary modifications reviewed Assessment & Plan (04/15/2024 8:11 AM EST): [...] Encounters Date Type Department Care Team Description 10/13/2024 Refill [facility] [address] [place] [address] Jalyn Washington FNP Mild intermittent asthma without complication 10/13/2024 Refill [facility] [address] [place] [address] Juana Mcclain NP Major depressive disorder in full remission, unspecified whether recurrent (CMS/HCC); Rash 10/09/2024 Refill [facility] [address] [place] [address] Juana Mcclain NP Chronic pain of both knees; Rash; Hemorrhoids, unspecified hemorrhoid type 10/09/2024 Refill [facility] [address] [place] [address] Nitza Abbott MD Hemorrhoids, unspecified hemorrhoid type 10/07/2024 Telephone [facility] [address] [place] [phone] Juana Mcclain NP 09/27/2024 2:30 PM EDT Office Visit [address] [address] Juana Mcclain NP Rash (Primary Dx) 09/27/2024 Travel 09/22/2024 3:00 PM EDT Office Visit [facility] [address] [place] [phone] Juana Mcclain NP Tinea corporis (Primary Dx) 09/10/2024 1:40 PM EDT Office Visit [facility] [address] [place] [phone] Nitza Abbott MD Tinea corporis (Primary Dx); Hemorrhoids, unspecified hemorrhoid type 09/10/2024 Refill [facility] [address] [place] [phone] Ling Cruz FNP Essential hypertension 09/10/2024 Refill [facility] [address] [place] [phone] Sebastien Jasmine MD Essential hypertension 09/05/[address] [address] Jalyn Washington FNP 08/23/[address] [address] Gregory Guzman MA rescheule appt PCP out 08/17/[address] [address] Nazia Renee MA Alena Recall 07/23/[address] [address] Juana Mcclain NP from Last 3 Months Immunizations Immunization Administration Dates Next Due Hep B, adult 06/29/2009,06/01/2009 Influenza injectable quadrivalent preservative f ree 03/28/2020 Influenza, IIV3, injectable 01/24/2011, 0 Influenza, seasonal, injectable, preservative fr ee 03/30/2013 Novel [id number] 05/02/2009 Pneumococcal Conjugate PCV 20 06/16/2024 Td (adult), unspecified 07/11/2006 Tdap 12/16/2019 Family [...] housing situation today? I have steven lemons 09/27/[address] you li ve. Do you have problems with any of the following? None of the above 09/27/2024 Food Insecurity Answer Date Recorded Within the past 12 months, y ou worried that your food would run out before you got money to buy more: Never True 09/27/2024 Within the past 12 months,th e food you bought just didn't last and you didn't have enough money to get more: Never True 05/2024 Transportation Answer Date Recorded In the past 12 months, has l ack of transportation kept you from medical appts, meetings, work or from getting things needed for daily living? No 09/27/2024 Utilities Answer Date Recorded In the past 12 months, has t he electric, gas, oil or water company threatened to shut off services in your home? Yes 09/27/2024 Depression Answer Date Recorded Patient Health Questionnaire-2 Score 0 04/23/2024 Internet Access Answer Date Recorded Internet Access Q1 Yes 09/27/2024 Internet Access Q2 Not on file 09/27/2024 Comments No Sex and Gender Information Value Date Recorded Sex Assigned at Female 02/25/2022 10:25 AM EDT Legal Sex Female 10:25 AM EDT Gender Identity Female 02/25/2022 10:25 AM EDT Sexual Orientation Straight 01/21/2024 12 :16 PM EDT Last Filed Vital Signs Vital Sign Reading Time Taken Comments Blood Pressure 120/72 09/27/2024 3:21 PM EDT Pulse 70 09/27/2024 3:21 PM EDT Temperature 36.7 C (98.1 F) 09/27/2024 3:21 PM EDT Respiratory Rate 18 09/27/2024 3:21 PM EDT Oxygen Saturation 99% 09/27/2024 3:21 PM EDT Inhaled Oxygen Concentration - - Weight 85.7 kg (189 lb) 09/27/2024 3:21 PM EDT Height 154.9 cm (5' 1 ) 09/27/2024 3:21 PM EDT Body Mass Index 35.71 09/27/2024 3:21 PM EDT Plan of Treatment Upcoming Encounters Date Type Department Care Team (Late st Contact Info) Description 11/12/2024 11:00 AM EDT Office Visit [facility] [address] [place] [phone] Juana Mcclain NP [address] [place] [address] 12/01/2024 10:30 AM EDT Procedure Visit [address] [address] Soniya Farmer CNM [address] [place] [address] Health Maintenance Due Date Last Done Comments CT Colonography 1965 FIT DNA/Cologuard 1965 FIT 1965 FOBT 1965 HIV Screening 1965 Sigmoidoscopy 1965 Zoster Vaccines (1 of 2) 2014 COVID-19 Vaccine ( season) 2023 05/10/2021, 08/19/2020, 07/22/2020 RSV Patients and Patients Aged 60 years or older (1 - Risk 60-74 years 1-dose series) 2024 Influenza Vaccine (Season Ended) 2024 03/28/2020, 03/30/2013, 01/24/2011, Additional history exists Cervical Cancer Screening 01/02/2025 Pap Smear 01/02/2025 06/16/2024 Alcohol/Substance Use Screening 03/03/2025 03/03/2024 Depression Screening 04/23/2025 04/23/2024, 04/23/20 24 Disability Screening 09/27/2025 09/27/2024 SDOH Screening 09/27/2025 09/27/2024 Tobacco Screening 09/27/2025 09/27/2024 Mammogram 04/22/2026 04/22/2024, 03/31/2020 Lipid Panel 10/20/2028 10/21/2023, 02/0 05/2022, 01/24/2021, Additional history exists HPV/Cotest 06/16/2029 06/16/2024 DTaP/Tdap/Td Vaccines (2 - Td or Tdap) 12/15/2029 12/16/2019, 07/11/2006 Colonoscopy 08/18/2030 08/15/2020 Colorectal Cancer Screening 08/18/2030 Hepatitis B Vaccines Discontinued 06/29/2009, 06/01/19 10 Hepatitis C Screening Completed 04/22/2024, 020 Pneumococcal Vaccine: 50+ Years Completed 06/16/2024 Colposcopy Discontinued 07/02/2024 HIB Vaccines Aged Out No longer eligi [...] patient's age to complete this topic Meningococcal B Vaccine Aged Out No l onger eligible based on patient's age to complete [...] Procedure Name Priority Date/Time Associated Diagnosis Comments COLPOSCOPY Routine 07/02/2024 HPV DNA, LOW/HIGH RISK Routine 06/16/2024 10:10 AM EST PAP SMEAR Routine 06/16/2024 10:10 AM EST Encounter for Papanicolaou smear for cervical cancer screening HEPATITIS C AB W/REFL TO HCV RNA, QN, PCR Routine 04/22/2024 1:07 PM EST Encounter for health-related screening BI MAMMOGRAM SCREEN W ROLANDO W IMPLANTS NICHOLAS Routine 04/22/2024 11:30 AM EST LIPID PANEL, STANDARD Routine 10/21/2023 9:47 AM EDT Routine general medical examination at a health care facility HM COLONOSCOPY Routine 08/15/2020 3:59 PM EDT from Last 3 Months or Most Recently Relevant to Health Maintenance Results * Colposcopy (07/02/2024) Historical Provider MD IN CLINIC/BEDSIDE ORDERAB LES Final Result * (ABNORMAL) HPV DNA, Low/High Risk (06/16/2024 10:10 AM EST) HPV High Risk Positive(A) Negative [facility] HPV Genotype 16 Negative Negative [facility] HPV Genotype 18 Positive(A) Negative [facility] Comment:HPV testing performe d at [facility] (CLIA#[id number]), [address] [place] [address].Testing for HPV was performed using the Suzy DOMENICO 6800system. The presence of HPV in the female genital tract isassociated with a number of diseases, including cervicalcarcinoma. The HPV DNA high risk pool tests for HPV 31, 33,35, 39, 45, 51, 52, 56, 58, 59, 66 and 68. The testing forHPV 16 and 18 genotypes has also been performed. A positiveresult indicates detection of nucleic acid sequences fromone or more subtypes, whereas a negative result indicatessuch sequences were not detected. 06/16/2024 10:1 0 AM EST 06/17/2024 9:00 AM EST Juana Appram INTERNATIONAL MARKETING SPECIALIST LAB BLOOD ORDERABLES Final Resu lt [facility] [address] [place] [address] [phone] * Pap Smear (06/16/2024 10:10 AM EST) Swab Cervical swab / Unknown 06/16/2024 10:10 AM EST 06/17/2024 9:00 AM EST Narrative [facility] - 06/21/2024 5:11 PM EST ----- ------- Name: Иван Mondragon Age/Sex: 58/F : 1965 Unit#: [id number] Attend Dr: Re06/16/24 Status: PRE REF Location: [facility] Disch: ----- ------- SPEC : [id number] RECD: 06/17/24 STATUS: ZION HUNT NUM: [id number] XENIA: 06/16/24-[address]: Juana Mcclain ENTERED: 06/17/24 SP TYPE: Pap Smr MARIANA CHOPRA: ORDERED: Pap Smear, PAP path review Interpretation ABNORMAL PAP TEST. Satisfactory for evaluation, with atypical squamous cells of undetermined significance (ASC-US). HPV High Risk: Positive HPV Genotyping 16: Negative HPV Genotyping 18: Positive Clinical Information LMP: Post menopausal Previous PAP test: 10/2023, Unknown findings Other surgery: Hysterectomy Material Received Cervix ----- ------- Signed (signature on file) Sherif Riggins MD 06/21/24 1711 ----- ------- END OF REPORT Juana Mcclain INTERNATIONAL MARKETING SPECIALIST LAB CYTOLOGY ORDERABLES Final R esult Performing Organization Address [facility] Co de Phone Number [facility] [address] [place] [address] [phone] * Hepatitis C Antibody with Reflex to HCV, RNA, Quantitative, Real-Time PCR (04/22/2024 1:07 PM EST) Hepatitis C Antibody Nonreactive Nonreactive [facility] Comment:Antibodies to HCV no t detected; does not exclude early acuteHCV infection. Blood Venous blood specimen / Unknown 04/22/2024 1:07 PM EST 04/22/2024 1:07 PM EST [facility] Final Resu lt Performing Organization Address [facility] Co de Phone Number [facility] [address] [place] [address] [phone] * BI Mammogram Screen w/ Rolando w/ Implants Nicholas (04/22/2024 11:30 AM EST) Anatomical Region Laterality Modality Mammography 04/22/2024 11:3 0 AM EST Narrative 05/04/2024 4:49 PM EST Javan [facility] [address] [place], [place] [address] Mammography Report Signed Patient: Иван Mondragon MR#: [id number] : 1965 Acct:[id number] Age/Sex: 58 / F ADM Date: 04/22/24 Loc: HO.MAMMO Attending Dr: Juana Mcclain Ordering Physician: Juana Mcclain Results: 2Benign Fi ndings Date of Service: 04/22/24 Follow Up: 1 Year From Orig inal Mammogram Procedure(s): MM tomosynthesis screen imp BI Accession Number(s): [id number] cc: Juana Mcclain; Jalyn Washington INTERNATIONAL MARKETING SPECIALIST EXAMINATION: MM SCREENING DIGITAL BREAST TOMOSYNTHESIS, BILATERAL [...] 05/04/24 1646 DD/ 1130 TD/TT: 04/22/24 1158 Quality Assurance Auditor: Procedure Note Donotuseinterpreter, Image - 05/04/2024 [facility] [address] [place], [place] [address] Mammography Report Signed Patient: Иван MondragonMR#: [id number] : 1965Acct:[id number] Age/Sex: 58 / FADM Date: 04/22/24 Loc: HO.MAMMO Attending Dr: Juana Mcclain Ordering Physician: Juana McclainResults: 2Benign Fi ndings Date of Service: 04/22/24Follow Up: 1 Year From Orig inal Mammogram Procedure(s): MM tomosynthesis screen imp BI Accession Number(s): [id number] cc: Juana Mcclain; Jalyn Washington INTERNATIONAL MARKETING SPECIALIST EXAMINATION: MM SCREENING DIGITAL BREAST TOMOSYNTHESIS, BILATERAL [...] 05/04/24 1646 DD/ 1130 TD/TT: 04/22/24 1158 Quality Assurance Auditor: Juana Augustinem INTERNATIONAL MARKETING SPECIALIST IMG BI PROCEDURES Final Result * (ABNORMAL) Lipid Panel, Standard (10/21/2023 9:47 AM EDT) Triglycerides 47 <150 mg/dL [facility] Comment:Desirable Triglyceri de: less than 150 mg/dLBorderline High Triglyceride 150-199 mg/dLHigh Triglyceride: 200-499 mg/dLVery High Triglyceride: greater than or equal to 5OO mg/dL Cholesterol 164 <200 mg/dL [facility] Comment:Desirable Cholestero l: less than 200 mg/dLBorderline High Cholesterol: 200-239 mg/dLHigh Cholesterol: greater than 239 mg/dL LDL Cholesterol Calculated 100(H) <100 mg/dL [facility] Comment:Desirable LDL: less than 100 mg/dLNear Optimal/Above Optimal LDL: 110- 129 mg/dLBorderline High LDL: 130-159 mg/dLHigh LDL: 160-189 mg/dLVery High LDL: greater than or equal to 190 mg/dL HDL Cholesterol 55 >40 mg/dL [facility] Comment:Desirable HDL: great er than 40 mg/dL Note: This HDL assay may give artificially low results in patients with liver disease. Blood Venous blood specimen / Unknown 10/21/2023 9:47 AM EDT 10/21/2023 11:38 AM EDT Jalyn Washington SUPERVISOR P[employer]CH[employer] LOADING LAB BLOOD ORDERABLES Final Resu lt [facility] [address] [place] [phone] * Hm Colonoscopy (08/15/2020 3:59 PM EDT) Colonoscopy Normal Normal Narrative Kirstin Carranza - 08/15/2020 3:59 PM EDT Recommended 10 year follow up ; consider FIT testing in 5 and 7 years ( [facility] ) Historical Provider HEALTH MAINTENANCE Edited Result - Final from Last 3 Months or Most Recently Relevant to Health Maintenance Insurance [facility] Care Teams Copy Director Relationship Specialty Start Date End Date Juana Mcclain NP [address] [place] [phone] PCP - General Family Medicine 12/30/23
== END 2024-06-16 00:01 | disposition home or self-care (01) ==
LOC: HO.LNP
PROVIDERS: Visit Provider Nurse Practitioner
DX: Z13.89 Encounter for screening for other disorder (principal)
CPT/HCPCS: 87626; 88175

== ENCOUNTER 2024-12-02 | Outpatient (REF) | payer OTHER, SELFPAY ==
--- OUTSIDE RECORDS SUMMARY | 2024-12-06 09:15 | XMS_ITS ---
Author Name [facility] Organization Unknown Encounters Encounter Type Encounter Reason Primary Diagnosis Location Date Ambulatory [facility] 11/25/2024 Care Team Organization Name Specialty Phone Email Start Date End Da joan [facility] provided,No Primary Care 11/27/2024 [facility] No provided Primary Care 11/26/2024
--- OUTSIDE RECORDS SUMMARY | 2024-12-06 09:15 | XMS_ITS | Clinical Summary ---
Author Organization [facility] Address [address] [place] [id number] Phone Care Team Providers Care Lead Systems Engineer Name Role Phone Juana Mcclain [place] NUT TAPPER Primary Care Provider + Allergies Active Allergy Reactions Criticality Noted Date Comments Acetaminophen-Codeine 08/04/2023 Hives, and seeing black shadows Aspirin Other (See Comments) 2014 GI upset Other Reaction(s): Stomach Pain Codeine Itching 2014 Metronidazole 2014 Hives and saw black shadow Oxycodone Itching 2014 Penicillins Hives 2014 Venom-Honey Bee 02/10/2023 Medications buPROPion (WELLBUTRIN XL) 150 MG ER 24 hr tablet orally Active albuterol (PROAIR HFA) 90 mcg/actuation inhaler Inhale 2 puffs into the lungs every 4 (four) hours as needed. Active LORazepam (ATIVAN) 0.5 MG tablet Take 0.5 mg by mouth nightly as needed. Active fluticasone propionate (FLONASE) 50 mcg/actuation nasal spray 1 spray by Each Nare route daily. Active cetirizine (ZYRTEC) 10 MG tablet Take 10 mg by mouth daily. Active VITAMIN D3 25 mcg (1,000 unit) capsule Take by mouth daily. Active cyclobenzaprine (FLEXERIL) 5 MG tablet Take 5 mg by mouth 2 (two) times a day as needed. Active gabapentin (NEURONTIN) 100 MG capsule Take 300 mg by mouth nightly at bedtime. Active hydroCHLOROthia zide 12.5 MG tablet Take 12.5 mg by mouth daily. 12/18/202 4 Active ketoconazole 2 % cream Apply topically 2 (two) times a day. 5 Active lidocaine (LIDODERM) 5 % Place 1 patch onto the skin daily. Active omeprazole (PRILOSEC) 20 MG capsule Take 20 mg by mouth 2 (two) times a day. Active buPROPion (WELLBUTRIN XL) 300 MG ER 24 hr tablet Take 300 mg by mouth every morning. Active Active Problems Problem Noted Date Diagnosed Date ASCUS with positive high risk HPV cervical 07/02 Overview (07/02/2024): Pos HPV 13 July 2024- colpo normal though unsatisfactory with cervical stenosis Assessment & Plan (07/02/2024 2:44 PM EST): Reviewed the limitations with cervical stenosis, I was unable to dilate even with tenaculum and a dilator. Options include proceeding directly to a diagnostic LEEP, which she would prefer in the OR, or repeat a Pap smear in 6 months. If in 6 months the Pap is the same or has progressed, then LEEP would be recommended. Pros and cons of these approaches were discussed, for now we will go with Pap in 6 months Encounters Date Type Department Care Team Description 12/03/2024 3:04 PM EDT - 12/03/2024 11:59 PM EDT Hospital Encounter [facility] [address] [place] [address] Carly Gilliland NP Discharge Disposition: Home or Self Care 12/03/[address] [facility] [address] [place] [address] Carly Gilliland NP Hives (Primary Dx) from Last 3 Months Social History Tobacco Use Types Packs/Day Years Used Date Smoking Tobacco: Never Smokeless Tobacco: Never Tobacco Cessation:Counseling Given: Not Answered Alcohol Use Standard Drinks/Week Comments Yes 0 (1 standard drink = 0.6 oz pur e alcohol) Education Answer Date Recorded Are you interested in more education? Not on terrie e 07/01/2024 Are you concerned about learning? Not on file 07/01/2024 No 07/01/2024 No 07/01/2024 Digital Access Answer Date Recorded No 07/01/2024 No 07/01/2024 Reliable internet access at home? Not on file 07/01/2024 Device with a working camera? Not on file Comments No Sex and Gender Information Value Date Recorded Sex Assigned at Not on file Legal Sex Female 9:41 PM EDT Gender Identity Not on file Sexual Orientation Not on file Last Filed Vital Signs Vital Sign Reading Time Taken Comments Blood Pressure 128/84 07/02/2024 1:57 PM EST Pulse 72 03/06/2016 3:51 AM EST Temperature 36.7 C (98.1 F) 03/06/2016 3:51 AM EST Respiratory Rate - - Oxygen Saturation - - Inhaled Oxygen Concentration - - Weight 90.7 kg (200 lb) 07/02/2024 1:57 PM EST Height 154.9 cm (5' 1 ) 07/02/2024 1:57 PM EST Body Mass Index 37.79 07/02/2024 1:57 PM EST Plan of Treatment Health Maintenance Due Date Last Done Comments DEPRESSION SCREENING 1976 HEPATITIS C SCREENING 1982 HIV ONE-TIME SCREENING (18-6 5 YEARS) 1982 MAMMOGRAM 2004 COLOGUARD 2009 COLONOSCOPY 2009 COLORECTAL CANCER SCREENING 2009 FIT TEST 2009 FOBT 2009 SIGMOIDOSCOPY 2009 VIRTUAL COLONOSCOPY 2009 PNEUMOCOCCAL VACCINES (50+ y ears) (1 of 1 - PCV) 2014 ZOSTER VACCINES (1 of 2) 2014 COVID-19 VACCINE ( - 2023-2 5 season) 2023 POTASSIUM LEVEL 12/03/2025 12/03/2024 PAP SMEAR 06/16/2027 06/16/2024 SCREENING FOR DIABETES 12/04/2027 12/03/2024 LIPID PANEL 10/20/2028 10/21/2023 Adult Td,Tdap Booster 12/15/2029 12/16/2019 RSV VACCINE (1 - 1-dose 75+ series) 10/07/2039 SMOKING STATUS SCREENING (On ce After 26 Yrs) Completed 07/02/2024 HEPATITIS A VACCINES Aged Out No long er eligible based on patient's age to complete this topic HIB VACCINES Aged Out No longer eligi ble based on patient's age to complete this topic MENINGOCOCCAL VACCINES (ACWY) Aged Out No longer eligible based on patient's age to complete this topic MENINGOCOCCAL VACCINES (B) Aged Out N o longer eligible based on patient's age to complete this topic Medical Devices Not on file Procedures Procedure Name Priority Date/Time Associated Diagnosis Comments CBC AND DIFFERENTIAL Routine 12/03/2024 3:38 PM EDT Hives COMPREHENSIVE METABOLIC PANEL Routine 12/03/2024 3:38 PM EDT Hives IMMUNOGLOBULINS IGG, IGA, IGM Routine 12/03/2024 3:38 PM EDT Hives from Last 3 Months Results * Immunoglobulins IgG, IgA, IgM (12/03/2024 3:38 PM EDT) IMMUNOGLOBULIN G 1,591 700 - 1,600 mg/dL [facility] IgA 175 70 - 400 mg/dL [facility] IMMUNOGLOBULIN M 92 40 - 230 mg/dL [facility] Blood 12/03/2024 3:38 PM EDT 12/03/2024 3:46 PM EDT Carly Gilliland NUT TAPPER LAB BLOOD ORDERABLES Fin al Result [address] [id number] * Comprehensive metabolic panel (12/03/2024 3:38 PM EDT) SODIUM 138 133 - 146 mmol/L [facility] POTASSIUM 3.8 3.3 - 5.1 mmol/L [facility] CHLORIDE 102 96 - 108 mmol/L [facility] CO2 25 21 - 35 mmol/L [facility] BUN 12 6 - 19 mg/dL [facility] CREATININE 0.90 0.5 - 1.5 mg/dL [facility] GLUCOSE 90 70 - 99 mg/dL [facility] ALBUMIN 4.4 3.9 - 4.8 g/dL [facility] TOTAL PROTEIN 7.7 6.5 - 8.0 g/dL [facility] CALCIUM 9.9 8.4 - 10.3 mg/dL [facility] ALKALINE PHOSPHATASE 78 39 - 117 U/L [facility] TOTAL BILIRUBIN 0.4 0.0 - 1.2 mg/dL [facility] AST 26 0 - 37 U/L [facility] ALT 17 0 - 40 U/L [facility] GLOBULIN 3.3 1 - 4.8 g/dL [facility] EGFR 73 >59 mL/min/1.7 3m2 [facility] Comment:Estimated glomerular filtration rate calculated using the CKD-EPI refit equation. ANION GAP 15 10 - 20 mmol/L [facility] Blood 12/03/2024 3:3 8 PM EDT 12/03/2024 3:46 PM EDT us Carly Gilliland NUT TAPPER LAB BLOOD ORDERABLES Fin al Result Performing Organization Address City/State/[facility] Co de Phone Number [address] [address] * CBC and differential (12/03/2024 3:38 PM EDT) WBC 5.41 4.00 - 11.00 K/uL [facility] RBC 4.83 4.00 - 5.20 M/uL [facility] HGB 13.5 12.0 - 16.0 g/dL [facility] HCT 40.7 36.0 - 46.0 % [facility] PLT 209 150 - 450 K/uL [facility] MCV 84.3 80.0 - 100.0 [facility] MCH 28.0 27.0 - 31.0 pg [facility] MCHC 33.2 32.0 - 36.0 g/dL [facility] RDW 13.4 11.5 - 14.5 % [facility] MPV 10.3 8.4 - 12.0 fL [facility] NRBC 0.00 0.00 /100 WBCs [facility] ABSOLUTE NRBC 0.00 0.00 K/uL [facility] DIFF METHOD Auto [facility] NEUTS 67.6 48.0 - 76.0 % [facility] LYMPHS 21.8 18.0 - 41.0 % [facility] MONOS 8.7 4.0 - 11.0 % [facility] EOS 1.3 0.0 - 5.0 % [facility] BASOS 0.4 0.0 - 1.5 % [facility] Granulocytes, immature (%) 0.2 0.0 - 0.9 % [facility] ABSOLUTE NEUTS 3.66 1.92 - 7.60 K/uL [facility] ABSOLUTE LYMPHS 1.18 0.72 - 4.10 K/uL [facility] ABSOLUTE MONOS 0.47 0.16 - 1.10 K/uL [facility] ABSOLUTE EOS 0.07 0.00 - 0.50 K/uL [facility] ABSOLUTE BASOS 0.02 0.00 - 0.15 K/uL [facility] Granulocytes, immature 0.01 0.00 - 0.09 K/uL [facility] Blood 12/03/2024 3:38 PM EDT 12/03/2024 3:46 PM EDT us Carly Gilliland NUT TAPPER LAB BLOOD ORDERABLES Fin al Result Performing Organization Address City/State/[facility] Co de Phone Number [facility] [address] [place], [place] [id number] from Last [address] [place] [address] [place] [address] [place] [address] [employer] [address] [place] [address] [address] [place] [address] [employer] [facility] [employer] [facility] [employer] Care Teams Lead Systems Engineer Relationship Specialty Start Date End Date Juana Mcclain NP [address] [place] [address] PCP - General Nurse Practitioner 07/01/24 Additional Source Comments The information contained in this document represents components of the legal health record. It is not the complete legal health record.[facility]
--- OUTSIDE RECORDS SUMMARY | 2024-12-06 09:15 | XMS_ITS | Clinical Summary ---
Author Organization [employer] Address [address] [place] [address] [address] [place] [address] Care Team Providers Care Telephone Order Supervisor Name Role Phone Juana Mcclain NP Primary Care Provider [phone] Allergies Active Allergy Reactions Criticality Noted Date [...] EVERY 4 HOURS NEEDED 20.1 g 2 08/27/19 24 Active cetirizine (ZyrTEC) 10 MG tabletIndicatio ns:Seasonal allergies Take 1 tablet (10 mg) by mouth Once per day. 90 tablet 3 01/22/20 24 025 Active cyclobenzaprine (Flexeril) 5 MG tablet TAKE 1 TABLET BY MOUTH THREE TIMES DAILY NEEDED FOR MUSCLE SPASMS 30 tablet 3 03/03/20 24 Active cholecalciferol (Vitamin D-3) 25 MCG (1000 UT) capsuleIndicati ons:Hypovitamin osis D TAKE 1 CAPSULE BY MOUTH EVERY DAY 90 capsule 1 07/03/19 25 Active hydroCHLOROthia zide 12.5 MG tabletIndicatio ns:Essential hypertension TAKE 1 TABLET BY MOUTH EVERY DAY IN THE MORNING 90 tablet 2 09/11/19 25 Active Hydrocortisone, Perianal, (Preparation H) 1 % creamIndication s:Hemorrhoids, unspecified hemorrhoid type Apply sparingly to affected area of anus. 26 g 10/12/19 25 Active fluocinolone (Bajadero-Smoothe/ FS Body) 0.01 % external oilIndications: Dermatitis Apply 3 times weekly after showers 118.28 mL 1 10/23/19 25 Active triamcinolone (Kenalog) 0.1 % ointmentIndicat ions:Dermatitis Apply topically 2 times daily. 80 g 2 10/23/19 25 Active ketoconazole (NIZOral) 2 % shampooIndicati ons:Eczema, unspecified type Apply topically 2 (two) times a week. 120 mL 1 11/16/19 25 Active lidocaine (Lidoderm) 5 % patchIndication s:Chronic pain of both knees APPLY 1 PATCH TOPICALLY TO SKIN, LEAVE ON FOR 12 HOURS AND OFF FOR 12 HOURS DIRECTED 30 patch 11/13/19 25 Active buPROPion XL (Wellbutrin XL) 300 MG 24 hr tabletIndicatio ns:Major depressive disorder in full remission, unspecified whether recurrent (CMS/HCC) TAKE 1 TABLET EVERY MORNING 90 tablet 1 11/27/19 25 Active omeprazole (PriLOSEC) [address] capsule TAKE 1 CAPSULE BY MOUTH TWICE A DAY 180 capsule 1 09/07/19 25 025 Discontinued(Me d list cleanup (will not trigger notification to Pharmacy)) miconazole (Micotin) 2 % creamIndication s:Tinea corporis Apply topically 2 times daily. Apply to affected area twice daily until rash resolves. 118 mL 1 09/11/19 25 025 Discontinued(Me d list cleanup (will not trigger notification to Pharmacy)) fluconazole (Diflucan) 150 MG tabletIndicatio ns:Tinea corporis Take 1 tablet (150 mg) by mouth 1 (one) time per week. 2 tablet 09/23/19 25 025 Discontinued(Me d list cleanup (will not trigger notification to Pharmacy)) ketoconazole (NIZOral) 2 % shampooIndicati ons:Tinea corporis Apply topically 2 (two) times a week. 120 mL 1 09/24/19 25 025 Discontinued(Re order (will not trigger notification to Pharmacy)) lidocaine (Lidoderm) 5 % patchIndication s:Chronic pain of both knees APPLY 1 PATCH TOPICALLY TO SKIN, LEAVE ON FOR 12 HOURS AND OFF FOR 12 HOURS DIRECTED 30 patch 10/12/19 25 025 Discontinued buPROPion XL (Wellbutrin XL) 300 MG 24 hr tabletIndicatio ns:Major depressive disorder in full remission, unspecified whether recurrent (CMS/HCC) TAKE 1 TABLET (300 MG) BY MOUTH IN THE MORNING 91 tablet 10/14/19 25 025 Discontinued Active Problems Problem Noted Date Diagnosed Date Routine health maintenance 03/03/2024 Assessment & Plan (03/03/2024 12:19 PM EST): Healthy 58 y.o. F -Optometry: over 3 years ago. Will make an appointment for routine exam -Dental: established with dental home near [facility]. -Last seen Apr 2023 -Breast CA: due for routine screening via mammogram. Would like afternoon appointment around 3 pm; if not [facility] -Cervical CA: screening completed 12/2023, however results not received as lab did ot run the test. Will need repeat testing; appointment scheduled today. -Colon CA: completed 10 years ago in [facility]. Had polyps removed. -Lung CA: N/A; patient [...] w PCP Bilateral chronic knee pain 05/24/2022 Assessment & Plan (11/15/2024 9:09 AM EDT): -RMV paperwork received from patient as she reports difficulty with leaving paperwork with medical records in the past -informed she will receive call from medical records when ready Umbilical hernia with obstruction, without gangr hernesto 05/24/2022 Major depressive disorder in full remission 04/29 Assessment & Plan (11/15/2024 9:08 AM EDT): -patient discontinued Wellbutrin in effort to determine source of dermatitis -she is encouraged to monitor for depression symptoms and report immediately -non-pharm measures reviewed Assessment & Plan (03/03/2024 12:16 PM EST): -patient reports being stable on current regimen -will obtain screening questioner at next visit Seasonal allergies 05/24/2022 Dry mouth 05/24/2022 Mild intermittent asthma without complication Hot flash, menopausal 05/24/2022 Gastroesophageal reflux disease 2014 Assessment & Plan (11/15/2024 9:06 AM EDT): -pt reports stability and asks for omeprazole to be removed from med list Allergic rhinitis 2014 Depressive disorder 2014 Eczema 2014 Assessment & Plan (11/15/2024 9:12 AM EDT): -biopsy completed by derm confirms eczema -continue topical regimen prescribed -recommended maintaining food diary to assess for triggers. Consider elimination and anti-inflammatory diets -recommended using dye and fragrance free products -referral to warehouse packaging supervisor placed as requested. Recommended OTC food allergy testing she could look into if allergy appointment is far out Insomnia 2014 Irritable bowel syndrome 2014 Sciatica 2014 Resolved Problems Problem Noted Date Diagnosed Date Resolved Date Spongiotic dermatitis 11/03/20242024 Encounters Date Type Department Care Team Description 12/02/2024 9:15 AM EDT Office Visit [facility] [address] [place] [address] Emperatriz Goyal MD Vasomotor symptoms due to menopause (Primary Dx) 12/02/2024 Travel 12/01/2024 10:30 AM EDT Procedure Visit [facility] [address] [place] [phone] Soniya Farmer CNM ASCUS with positive high risk HPV cervical (Primary Dx) 12/01/2024 Travel 11/30/2024 Telephone [facility] [address] [place] [phone] Soniya Farmer CNM chart prep 11/17/2024 Refill [facility] [address] [place] [phone] Juana Mcclain NP Major depressive disorder in full remission, unspecified whether recurrent (CMS/HCC) 11/15/2024 Refill [facility] [address] [place] [address] [phone] Juana Mcclain NP Major depressive disorder in full remission, unspecified whether recurrent (CMS/HCC) 11/14/2024 Refill [facility] [address] [place] [address] [phone] Juana Mcclain NP Tinea corporis 11/12/2024 11:00 AM EDT Office Visit [facility] [address] [place] [address] [phone] Juana Mcclain NP Eczema, unspecified type (Primary Dx); Elevated blood pressure reading in office with diagnosis of hypertension; Bilateral chronic knee pain; Hemorrhoids, unspecified hemorrhoid type; Gastroesophageal reflux disease without esophagitis; Major depressive disorder in full remission, unspecified whether recurrent (CMS/HCC); Rectal itching 11/12/2024 Refill [facility] [address] [place] [phone] Juana Mcclain NP Chronic pain of both knees 11/12/2024 Travel 11/11/2024 Telephone [facility] [address] [place] [address] [phone] Juana Mcclain NP Chart Prep 11/01/2024 Orders Only [facility] [address] [place] [address] Klever Goodman MD 10/22/2024 11:45 AM EDT Office Visit [facility] [address] [place] [address] [phone] Bobby Bernal MD Dermatitis 10/22/2024 Travel 10/22/2024 Refill [facility] [address] [place] [address] [phone] Juana Mcclain NP Rash 10/20/2024 Travel 10/20/2024 Telephone [facility] [address] [place] [address] [phone] Juana Mcclain NP Nurse Triage 10/13/2024 Refill [facility] [address] [place] [address] [phone] Jalyn Washington FNP Mild intermittent asthma without complication 10/13/2024 Refill [facility] [address] [place] [address] [phone] Juana Mcclain NP Major depressive disorder in full remission, unspecified whether recurrent (CMS/[facility]); Rash 10/09/2024 Refill [facility] [address] [place] [address] [phone] Juana Mcclain NP Chronic pain of both knees; Rash; Hemorrhoids, unspecified hemorrhoid type 10/09/2024 Refill [facility] [address] [place] [address] [phone] Nitza Abbott MD Hemorrhoids, unspecified hemorrhoid type 10/07/2024 Telephone [facility] [address] [place] [address] [phone] Juana Mcclain NP 09/27/2024 2:30 PM EDT Office Visit [facility] [address] [place] [address] [phone] Juana Mcclain NP Rash (Primary Dx) 09/27/2024 Travel 09/22/2024 3:00 PM EDT Office Visit [facility] [address] [place] [address] [phone] Juana Mcclain NP Tinea corporis (Primary Dx) 09/10/2024 1:40 PM EDT Office Visit [facility] [address] [place] [address] [phone] Nitza Abbott MD Tinea corporis (Primary Dx); Hemorrhoids, unspecified hemorrhoid type 09/10/2024 Refill [facility] [address] [place] [address] [phone] Ling Cruz FNP Essential hypertension 09/10/2024 Refill [facility] [address], [place] [phone] Sebastien Jasmine MD Essential hypertension 09/05/2024 Refill [facility] [address], [place] [phone] Jalyn Washington FNP from Last 3 Months Immunizations Immunization Administration Dates Next Due Hep B, adult 06/29/2009,06/01/2009 Influenza injectable quadrivalent preservative f ree 03/28/2020 Influenza, IIV3, injectable 01/24/2011, 0 Influenza, seasonal, injectable, preservative fr ee 03/30/2013 Novel [id number] 05/02/2009 Pneumococcal Conjugate PCV 20 06/16/2024 Td [...] Sign Reading Time Taken Comments Blood Pressure 159/90 12/01/2024 11:12 AM EDT Pulse 75 12/01/2024 11:12 AM EDT Temperature 36.1 C (97 F) 12/01/2024 11:12 AM EDT Respiratory Rate 14 12/01/2024 11:12 AM EDT Oxygen Saturation 99% 12/01/2024 11:12 AM EDT Inhaled Oxygen Concentration - - Weight 87.2 kg (192 lb 3.2 oz) 12/01/2024 11:12 AM EDT Height 154.9 cm (5' 1 ) 11/12/2024 11:10 AM EDT Body Mass Index 36.32 11/12/2024 11:10 AM EDT Plan of Treatment Health Maintenance Due Date Last Done Comments CT Colonography 1965 FIT DNA/Cologuard 1965 FIT 1965 FOBT 1965 HIV Screening 1965 Sigmoidoscopy 1965 Zoster Vaccines (1 of 2) 2014 COVID-19 Vaccine ( season) 2023 05/10/2021, 08/19/2020, 07/22/2020 RSV Patients and Patients Aged 60 years or older (1 - Risk 60-74 years 1-dose series) 2024 Influenza Vaccine (#1) 2024 , 03/30/2013, 01/24/2011, Additional history exists Cervical Cancer Screening 01/02/2025 HPV/Cotest 01/02/2025 06/16/2024 Pap Smear 01/02/2025 06/16/2024 Alcohol/Substance Use Screening 03/03/2025 03/03/2024 Depression Screening 04/23/2025 04/23/2024, 04/23/20 24 Disability Screening 09/27/2025 09/27/2024 SDOH Screening 09/27/2025 09/27/2024 Tobacco Screening 12/01/2025 12/01/2024 Mammogram 04/22/2026 04/22/2024, 03/31/2020 Lipid Panel 10/20/2028 10/21/2023, 05/2022, 01/24/2021, Additional history exists DTaP/Tdap/Td Vaccines (2 [...] Procedure Name Priority Date/Time Associated Diagnosis Comments DERMATOPATHOLOGY REPORT Routine 10/23/19 25 10:31 AM EDT COLPOSCOPY Routine 07/02/2024 HPV DNA, LOW/HIGH RISK Routine 5 10:10 AM EST PAP SMEAR Routine 06/16/2024 [...] Recently Relevant to Health Maintenance Results * Dermatopathology Report (10/22/2024 10:31 AM EDT) us Historical Provider LAB BLOOD ORDERABLES Josiane l Result * Colposcopy (07/02/2024) us Historical Provider IN CLINIC/BEDSIDE ORDERAB LES Final Result * (ABNORMAL) HPV DNA, Low/High Risk (06/16/2024 10:10 AM EST) HPV High Risk Positive(A) Negative [facility] HPV Genotype 16 Negative Negative [facility] HPV Genotype 18 Positive(A) Negative [facility] Comment:HPV testing performe d at [facility] (CLIA#[id number]), [address] [place] [address].Testing for HPV was performed using the Suzy [...] 0 AM EST 06/17/2024 9:00 AM EST us Juana Mcclain NP LAB BLOOD ORDERABLES Final Resu lt [facility] [address] [place] [phone] * Pap Smear (06/16/2024 10:10 AM EST) Swab Cervical swab / Unknown 06/16/2024 10:10 AM EST 06/17/2024 9:00 AM EST Narrative [facility] - 06/21/2024 5:11 PM EST ----- ------- Name: Иван Mondragon Age/Sex: 58/F : 1965 Unit#: [id number] Attend Dr: Re06/16/24 Status: PRE REF Location: [facility] Disch: ----- ------- SPEC : [id number] RECD: 06/17/24-899 STATUS: ZION HUNT NUM: [id number] XENIA: 06/16/24-[address] [facility] DR: Juana Mcclain ENTERED: 06/17/24 SP TYPE: [...] ----- ------- Signed (signature on file) Sherif Riggnis MD 06/21/24 1711 ----- ------- END OF REPORT Juana Mcclain NP LAB CYTOLOGY ORDERABLES Final R esult [facility] [address] [place] [phone] * Hepatitis C Antibody with Reflex to HCV, RNA, Quantitative, Real-Time PCR (04/22/2024 1:07 PM EST) Hepatitis C Antibody Nonreactive Nonreactive [facility] Comment:Antibodies to HCV no t detected; does not exclude early acuteHCV infection. Blood Venous blood specimen / Unknown 04/22/2024 1:07 PM EST 04/22/2024 1:07 PM EST us Juana Mcclain BARREL B[employer]ER LAB BLOOD ORDERABLES Final Resu lt [facility] [address] [place] [phone] [phone] * BI Mammogram Screen w/ Rolando w/ Implants Nicholas (04/22/2024 11:30 AM EST) Anatomical Region Laterality Modality Mammography 04/22/2024 11:3 0 AM EST Narrative 05/04/2024 4:49 PM EST [facility] [address] [place] [address] Mammography Report Signed Patient: Иван Mondragon MR#: [id number] : 1965 Acct:[id number] Age/Sex: 58 / F ADM Date: 04/22/24 Loc: HO.MAMMO Attending Dr: Juana Mcclain Ordering Physician: Juana Mcclain Results: 2Benign Fi ndings Date of Service: 04/22/24 Follow Up: 1 Year From Orig inal Mammogram Procedure(s): MM tomosynthesis screen imp BI Accession Number(s): [id number] cc: Juana Mcclain; Jalyn Washington NP EXAMINATION: MM SCREENING DIGITAL BREAST TOMOSYNTHESIS, BILATERAL [...] 05/04/24 1646 DD/ 1130 TD/TT: 04/22/24 1158 Hardware Manager: Procedure Note Donotuseinterpreter, Image - 05/04/2024 [facility] [address] [place], [place] [address] Mammography Report Signed Patient: Иван MondragonMR#: [id number] : 1965Acct:[id number] Age/Sex: 58 / FADM Date: 04/22/24 Loc: HO.MAMMO Attending Dr: Juana Mcclain Ordering Physician: Juana McclainResults: 2Benign ndadin Date of Service: 04/22/24Follow Up: 1 Year From Orig inal Mammogram Procedure(s): MM tomosynthesis screen imp BI Accession Number(s): [id number] cc: Juana Mcclain; Jalyn Washington [employer] EXAMINATION: MM SCREENING DIGITAL BREAST TOMOSYNTHESIS, BILATERAL [...] Lelo Alvarez DO 05/04/2024 04:46 PM EST RP Dictated By: Lelo Alvarez DO Signed By: <Electronically signed by Lelo Alvarez DO in OV> 05/04/24 1646 DD/ 1130 TD/TT: 04/22/24 1158 Hardware Manager: us Juana Mcclain [employer] IMG BI PROCEDURES Final Result * (ABNORMAL) Lipid Panel, Standard (10/21/2023 9:47 AM EDT) Triglycerides 47 <150 mg/dL [facility] Comment:Desirable Triglyceri de: less than 150 mg/dLBorderline High Triglyceride 150-199 mg/dLHigh Triglyceride: 200-499 mg/dLVery High Triglyceride: greater than or equal to 5OO mg/dL Cholesterol 164 <200 mg/dL [facility] Comment:Desirable Cholestero l: less than 200 mg/dLBorderline High Cholesterol: 200-239 mg/dLHigh Cholesterol: greater than 239 mg/dL LDL Cholesterol Calculated 100(H) <100 mg/dL [facility] Comment:Desirable LDL: less than 100 mg/dLNear Optimal/Above Optimal LDL: 110- 129 mg/dLBorderline High LDL: 130-159 mg/dLHigh LDL: 160-189 mg/dLVery High LDL: greater than or equal to 190 mg/dL HDL Cholesterol 55 >40 mg/dL [facility] Comment:Desirable HDL: great er than 40 mg/dL Note: This HDL assay may give artificially low results in patients with liver disease. Blood Venous blood specimen / Unknown 10/21/2023 9:47 AM EDT 10/21/2023 11:38 AM EDT us Jalyn Washington COMPOSITION WORKER LAB BLOOD ORDERABLES Final Resu lt [facility] [address] [place] [address] [phone] * Hm Colonoscopy (08/15/2020 3:59 PM EDT) Colonoscopy Normal Normal Narrative Kirstin Carranza - 08/15/2020 3:59 PM EDT Recommended 10 year follow up ; consider FIT testing in 5 and 7 years ( [facility] [place] us Historical Provider HEALTH MAINTENANCE Edited Result - Final from Last 3 Months or Most Recently Relevant to Health Maintenance Insurance [facility] [place] [id number] Care Teams Telephone Order Supervisor Relationship Specialty Start Date End Date Juana Mcclain NP [address] [place] [address] PCP - General Family Medicine 12/30/23
== END 2024-12-02 00:01 | disposition home or self-care (01) ==
LOC: HO.HHCLNP
PROVIDERS: Visit Provider Advanced Practice Midwife
DX: Z11.51 Encounter for screening for human papillomavirus (HPV) (principal)
CPT/HCPCS: 87626; 88175